=== PATIENT | male | born 1945 | race Caucasian/White ===

== ENCOUNTER → 2022-01-21 | Outpatient (CLI) | payer MEDICARE, SELFPAY ==
[2022-01-21 12:15] LABS: Absolute Lymphocyte Count 1.57 X10^3/uL (0.83-4.51); Absolute Neutrophil Count 3.1 X10^3/uL (2.0-7.7); Basophil# 0.04 X10^3/uL; Basophil% 0.7 % (0-1); Eosinophil# 0.11 X10^3/uL; Eosinophils% 1.9 % (0-5); Hematocrit 42.8 % (40-54); Hemoglobin 13.5 g/dL (13.0-16.5); Lymphocyte # 1.57 X10^3/ul (0.83-4.51); Lymphocyte % 27.6 % (19-41); Mean Corp Hgb Conc 31.5 g/dL (32-36); Mean Corpuscular Hgb 28.1 pg (27.0-32.0); Mean Platelet Vol. 10.9 fl (6.2-12.0); Monocyte# 0.82 X10^3/uL; Monocyte% 14.4 % (0-10); NRBC Flagged by Analyzer 0 % (0-5); Neutrophil # 3.13 X10^3/uL (2.7-7.7); Neutrophil % 55.2 % (47-70); Platelet Count 166 K/mm3 (150-450); RBC Distribution Width CV 17.2 % (11.6-14.6); RBC Distribution Width SD 56.5 fl (35.1-43.9); Red Blood Count 4.81 M/mm3 (4.6-6.2); White Blood Count 5.7 K/mm3 (4.4-11.0)
[2022-01-21 12:53] LABS: ALB/GLOB Ratio 1.1 RATIO (0.9-2.4); AST(SGOT) 27 U/L (15-37); Alanine Aminotransfer ALT/SGPT 32 U/L (16-61); Albumin, Serum 3.7 g/dL (3.2-5.0); Alkaline Phosphatase 59 U/L (45-117); Anion Gap 4 (5-15); BUN 15 mg/dL (7-18); BUN/Creat Ratio 13.2 RATIO (10-20); Calcium,Total 8.9 mg/dL (8.5-10.1); Chloride 106 mmol/L (98-107); Cholesterol 150 mg/dL (200); Creatinine, Serum 1.14 mg/dL (0.70-1.30); EST Glomerular Filtration Rate 67 mL/min (>60); Est Glom Filt Rate - Afr Amer 81 mL/min (>60); Globulin 3.4 g/dL (2.2-4.2); Glucose 80 mg/dL (74-106); High Density Lipoprotein 84 mg/dL; PSA,Total - Annual Screen 5.01 ng/mL (0.00-4.00); Potassium 4.1 mmol/L (3.5-5.1); Protein, Total 7.1 g/dL (6.4-8.2); Sodium Level 141 mmol/L (136-145); Thyroid Stim Hormone (TSH) 2.28 uIU/mL (0.358-3.74); Triglycerides 69 mg/dL; Very Low Density Lipoprotein 14 mg/dL (5-40)
== END | disposition home or self-care (01) ==
PROVIDERS: PCP Family Medicine; Visit Provider Family Medicine
DX: E78.5 Hyperlipidemia, unspecified (principal); F41.9 Anxiety disorder, unspecified; Z12.5 Encounter for screening for malignant neoplasm of prostate
CPT/HCPCS: 36415; 80053; 80061; 84153; 84443; 85025; G0103

== ENCOUNTER 2022-03-26 06:20 | Day surgery (SDC) | payer MEDICARE, SELFPAY ==
[2022-03-26] MEDS: Lactated Ringers 1,000 ML 15 ML IV (06:45)
[2022-03-26 06:54] VITALS: BP 132/79; PULSE 71; RESP 18; TEMP 37.1; O2SAT 93; BMI 23.6
--- NOTE | 2022-03-26 06:59 | HP.PCM_ITS ---
HPI - General General Date of Service: 03/26/22 HPI Narrative TOM VILLATORO, is a 76 M who presents who presents for screening colonoscopy today. Previous examination was 2008. He presents via open access today. He enjoys good health. Has no specific complaints. No abdominal pain bright red blood blood per rectum or melena. No change in bowel habits. No history of DVT. [facility] Medical History (Updated 03/25/22 @ 10:55 by Kim Albright) Anxiety and depression Constipation Former smoker Hyperlipidemia Insomnia Wears glasses Wears hearing aid Home Medications atorvastatin 20 mg tablet 20 mg PO QHS 02/06/22 [History Last Taken Unknown] bupropion HCl 150 mg tablet,12 hr sustained-release 150 mg PO BID 02/06/22 [History Last Taken Unknown] zzdoigs-tnbwqzffh-aqfh 333 mg-133 mg-5 mg tablet 2 tab PO DAILY 02/06/22 [History Last Taken Unknown] diphenhydramine HCl 25 mg capsule (Benadryl) 25 mg PO QHS PRN allergies 02/06/22 [History Last Taken Unknown] docusate sodium 100 mg capsule 100 mg PO DAILY 02/06/22 [History Last Taken Unknown] glucosamine HCl 1,500 mg tablet 1,500 mg PO BID 02/06/22 [History Last Taken Unknown] lutein 25 mg-zeaxanthin 5 mg capsule (Ocuvite Lutein) 1 cap PO DAILY 02/06/22 [History Last Taken Unknown] melatonin 10 mg capsule 10 mg PO HS PRN Sleep 02/06/22 [History Last Taken Unknown] multivitamin 1 tab PO DAILY 02/06/22 [History Last Taken Unknown] sennosides 8.6 mg capsule (senna) 8.6 mg PO QHS PRN PRN Constipation 02/06/22 [History Last Taken Unknown] Allergy/AdvReac Type Severity Reaction Status Date / Time Tetracyclines Allergy Intermediate Swelling Verified 03/26/22 06:43 acetaminophen [From NyQuil] AdvReac Other Verified 03/26/22 06:43 dextromethorphan AdvReac Other Verified 03/26/22 06:43 [From NyQuil] doxylamine [From NyQuil] AdvReac Other Verified 03/26/22 06:43 pseudoephedrine [From NyQuil] AdvReac Other Verified 03/26/22 06:43 Family History (Updated 02/06/22 @ 11:00 by Yadira Bautista) Father Hypertension Myocardial infarction CAD (coronary artery disease) Surgical History (Updated 03/25/22 @ 10:46 by Kim Albright) History of circumcision History of colonoscopy History of surgery on right wrist History of tonsillectomy History of umbilical hernia repair Social History (Updated 02/06/22 @ 11:01 by Yadira Bautista) household members: spouse Smoking Status: Former smoker ROS Constitutional Constitutional: Reports systems reviewed and no addt'l complaints, except as documented Cardiovascular Cardiovascular: Denies chest pain Respiratory/Chest Respiratory/Chest: Denies shortness of breath at rest Gastrointestinal Gastrointestinal: Denies abdominal pain, change in bowel habits, hematochezia or melena Vital Signs Vital Signs Vital Signs: 03/26/22 06:54 03/26/22 06:54 Temperature 98.7 F Temperature Source Temporal Pulse Rate 71 Respiratory Rate 18 Respiratory Pattern Normal Blood Pressure 132/79 H Blood Pressure Mean 96 Blood Pressure Source Monitor Blood Pressure Position Semi-Fowlers Blood Pressure Location Right Arm Pulse Ox 93 Oxygen Delivery Method Room Air Weight Weight: 155 lb 6.814 oz Body Mass Index (BMI) 23.6 Physical Exam Const alert, oriented x3 and no apparent distress General Appearance: cooperative and comfortable Eyes General Eye: normal appearance of both eyes Neck General: normal visual inspection Chest inspection of chest normal Resp Effort and Inspection: able to speak in complete sentences and symmetric chest movement Auscultation: clear to auscultation bilaterally Cardio regular rate and regular rhythm GI soft to palpation, non-tender and non-distended Extremity no calf tenderness Neuro oriented x3 Psych thought process normal Assessment & Plan Assessment/Plan (1) Encounter for screening for malignant neoplasm of colon: PLAN: 76-year-old gentleman who presents via open access today for screening colonoscopy with possible biopsy or polypectomy as indicated. He is aware of the technique, benefit, risk, alternatives. We will proceed as noted. Ravi Humphreys M.D., F.A.C.S.
[2022-03-26 08:15] VITALS: BP 103/52; BP 132/79; PULSE 66; RESP 18; TEMP 36.7; O2SAT 97
--- NOTE | 2022-03-26 08:18 | OP.COLON_ITS ---
Patient Name: Dc Guzman Procedure Date: 03/26/2022 7:41 AM Date of : 1945 Age: 76 Procedure: Colonoscopy Indications: Screening for colorectal malignant neoplasm Providers: Ravi Humphreys MD Medicines: See the Anesthesia note for documentation of the administered medications Patient Profile: Last Colonoscopy: 2008. Complications: No immediate complications. Procedure: Pre-Anesthesia Assessment: - Prior to the procedure, a History and Physical was performed, and patient medications and allergies were reviewed. The patient's tolerance of previous anesthesia was also reviewed. The risks and benefits of the procedure and the sedation options and risks were discussed with the patient. All questions were answered, and informed consent was obtained. Prior Anticoagulants: The patient has taken no previous anticoagulant or antiplatelet agents. ASA Grade Assessment: II - A patient with mild systemic disease. After reviewing the risks and benefits, the patient was deemed in satisfactory condition to undergo the procedure. After I obtained informed consent, the scope was passed under direct vision. Throughout the procedure, the patient's blood pressure, pulse, and oxygen saturations were monitored continuously. The was introduced through the anus and advanced to the cecum, identified by appendiceal orifice and ileocecal valve. The colonoscopy was somewhat difficult due to a redundant colon. The patient tolerated the procedure well. The quality of the bowel preparation was fair. The ileocecal valve and the appendiceal orifice were photographed. Scope In: 7:51:42 AM Scope Withdrawal Time 0 hours 14 minutes 7 seconds Scope Out: 8:13:22 AM Total Procedure Duration Time 0 hours 21 minutes 40 seconds Findings: The digital rectal exam findings include non-thrombosed external hemorrhoids, non-thrombosed internal hemorrhoids and internal hemorrhoids that prolapse with straining, but spontaneously regress to the resting position (Grade II). Pertinent negatives include normal prostate (size, shape, and consistency). The colon (entire examined portion) was moderately redundant. There was moderate spasm in the entire colon. Pt was given glucagon to help with visualization The exam was otherwise without abnormality. Impression: - Preparation of the colon was fair. - Non-thrombosed external hemorrhoids, non-thrombosed internal hemorrhoids and internal hemorrhoids that prolapse with straining, but spontaneously regress to the resting position (Grade II) found on digital rectal exam. - Redundant colon. - Moderate colonic spasm. - The examination was otherwise normal. - No specimens collected. Recommendation: - Discharge patient to home. - Resume previous diet. - Continue present medications. - Repeat colonoscopy in 10 years for screening purposes. Procedure Code(s): --- Professional --- 03721, Colonoscopy, flexible; diagnostic, including collection of specimen(s) by brushing or washing, when performed (separate procedure) Diagnosis Code(s): --- Professional --- Z12.11, Encounter for screening for malignant neoplasm of colon K64.1, Second degree hemorrhoids K64.4, Residual hemorrhoidal skin tags K58.9, Irritable bowel syndrome without diarrhea Q43.8, Other specified congenital malformations of intestine CPT copyright 2017 [employer]. All rights reserved. The codes documented in this report are preliminary and upon medical biller coder review may be revised to meet current compliance requirements. Ravi Humphreys MD 03/26/2022 8:18:23 AM This report has been signed electronically. Number of Addenda: 0 Note Initiated On: 03/26/2022 7:41 AM
--- NOTE | 2022-03-26 08:19 | OP.CCLET_ITS ---
03/26/2022 Saad Kelley [address] [place] [address] Re : Colonoscopy procedure for Dc Guzman Dear Dr. Kelley This procedure was performed on Saturday, March 26, 2022. My impressions and recommendations are as follows: Impressions : - Preparation of the colon was fair. - Non-thrombosed external hemorrhoids, non-thrombosed internal hemorrhoids and internal hemorrhoids that prolapse with straining, but spontaneously regress to the resting position (Grade II) found on digital rectal exam. - Redundant colon. - Moderate colonic spasm. - The examination was otherwise normal. - No specimens collected. Recommendations : - Discharge patient to home. - Resume previous diet. - Continue present medications. - Repeat colonoscopy in 10 years for screening purposes. My findings are described in the full procedure note, which is enclosed. If I can be of further assistance, please feel free to contact me at Doctor phone number(s): Work: . Sincerely, Ravi Humphreys MD 03/26/2022 8:18:23 AM This report has been signed electronically.
[2022-03-26 08:20] VITALS: BP 103/58; BP 132/79; PULSE 63; RESP 18; O2SAT 97
[2022-03-26 08:25] VITALS: BP 102/53; BP 132/79; PULSE 67; RESP 16; O2SAT 100
[2022-03-26 08:30] VITALS: BP 100/54; BP 132/79; PULSE 64; RESP 16; TEMP 37; O2SAT 98
[2022-03-26 08:41] VITALS: BP 132/79
== END 2022-03-26 08:50 | disposition home or self-care (01) ==
LOC: EN 06:23 → AC 06:24
PROVIDERS: PCP Family Medicine; Referring Provider Family Medicine; Visit Provider Surgery
PROC: 0DJD8ZZ Inspection of Lower Intestinal Tract, Via Natural or Artificial Opening Endoscopic (ICD-10-PCS; CPT 45378; principal; 2022-03-26 07:25)
DX: Z12.11 Encounter for screening for malignant neoplasm of colon (principal); K64.1 Second degree hemorrhoids; K64.4 Residual hemorrhoidal skin tags; K58.9 Irritable bowel syndrome, unspecified; Q43.8 Other specified congenital malformations of intestine; E78.5 Hyperlipidemia, unspecified; F32.A Depression, unspecified; F41.9 Anxiety disorder, unspecified; Z87.891 Personal history of nicotine dependence; Z79.899 Other long term (current) drug therapy
CPT/HCPCS: 45378; J7120; J1610; J2405

== ENCOUNTER → 2022-08-02 | Outpatient (CLI) | payer MEDICARE, SELFPAY ==
[2022-08-02 17:34] LABS: Absolute Lymphocyte Count 1.45 X10^3/uL (0.83-4.51); Absolute Neutrophil Count 5.9 X10^3/uL (2.0-7.7); Basophil# 0.07 X10^3/uL; Basophil% 0.8 % (0-1); Eosinophil# 0.16 X10^3/uL; Eosinophils% 1.8 % (0-5); Hematocrit 38.1 % (40-54); Hemoglobin 11.3 g/dL (13.0-16.5); Lymphocyte # 1.45 X10^3/ul (0.83-4.51); Lymphocyte % 16.8 % (19-41); Mean Corp Hgb Conc 29.7 g/dL (32-36); Mean Corpuscular Hgb 25.6 pg (27.0-32.0); Mean Corpuscular Volume 86.2 fL (80-94); Mean Platelet Vol. 10.7 fl (6.2-12.0); Monocyte# 1.05 X10^3/uL; Monocyte% 12.1 % (0-10); NRBC Flagged by Analyzer 0 % (0-5); Neutrophil # 5.89 X10^3/uL (2.7-7.7); Neutrophil % 68.2 % (47-70); Platelet Count 251 K/mm3 (150-450); RBC Distribution Width CV 15.8 % (11.6-14.6); RBC Distribution Width SD 49.7 fl (35.1-43.9); Red Blood Count 4.42 M/mm3 (4.6-6.2); White Blood Count 8.7 K/mm3 (4.4-11.0)
[2022-08-02 17:58] LABS: ALB/GLOB Ratio 1.3 RATIO (0.9-2.4); AST(SGOT) 23 U/L (15-37); Alanine Aminotransfer ALT/SGPT 25 U/L (16-61); Albumin, Serum 3.8 g/dL (3.2-5.0); Alkaline Phosphatase 72 U/L (45-117); Anion Gap 5 (5-15); BUN 18 mg/dL (7-18); BUN/Creat Ratio 15.9 RATIO (10-20); Calcium,Total 8.7 mg/dL (8.5-10.1); Chloride 106 mmol/L (98-107); Cholesterol 145 mg/dL (200); Creatinine, Serum 1.13 mg/dL (0.70-1.30); EST Glomerular Filtration Rate 67 mL/min (>60); Est Glom Filt Rate - Afr Amer 81 mL/min (>60); Glucose 103 mg/dL (74-106); High Density Lipoprotein 80 mg/dL; Potassium 4.3 mmol/L (3.5-5.1); Protein, Total 6.8 g/dL (6.4-8.2); Sodium Level 141 mmol/L (136-145); Triglycerides 102 mg/dL; Very Low Density Lipoprotein 20 mg/dL (5-40)
[2022-08-09 21:25] LABS: PSA, Free 0.45 ng/mL; PSA, Free % 8.9 % (.)
== END | disposition home or self-care (01) ==
LOC: MFPLAB 14:47
PROVIDERS: PCP Family Medicine; Referring Provider Family Medicine; Visit Provider Family Medicine
DX: E78.5 Hyperlipidemia, unspecified (principal); R97.20 Elevated prostate specific antigen [PSA]
CPT/HCPCS: 36415; 80053; 80061; 84153; 84154; 85025

== ENCOUNTER → 2022-08-15 | Outpatient (CLI) | payer MEDICARE, SELFPAY ==
[2022-08-15 10:30] LABS: Absolute Lymphocyte Count 1.74 X10^3/uL (0.83-4.51); Absolute Neutrophil Count 3.3 X10^3/uL (2.0-7.7); Basophil# 0.05 X10^3/uL; Basophil% 0.8 % (0-1); Eosinophils% 3.3 % (0-5); Hematocrit 37.2 % (40-54); Hemoglobin 11.2 g/dL (13.0-16.5); Lymphocyte # 1.74 X10^3/ul (0.83-4.51); Mean Corp Hgb Conc 30.1 g/dL (32-36); Mean Corpuscular Hgb 24.9 pg (27.0-32.0); Mean Corpuscular Volume 82.9 fL (80-94); Mean Platelet Vol. 9.9 fl (6.2-12.0); Monocyte# 0.73 X10^3/uL; Monocyte% 12.2 % (0-10); NRBC Flagged by Analyzer 0 % (0-5); Neutrophil # 3.25 X10^3/uL (2.7-7.7); Neutrophil % 54.4 % (47-70); Platelet Count 211 K/mm3 (150-450); RBC Distribution Width CV 15.9 % (11.6-14.6); RBC Distribution Width SD 47.8 fl (35.1-43.9); Red Blood Count 4.49 M/mm3 (4.6-6.2)
[2022-08-15 11:10] LABS: Vitamin B12 636 pg/mL (211-911)
[2022-08-15 11:28] LABS: AST(SGOT) 23 U/L (15-37); Alanine Aminotransfer ALT/SGPT 27 U/L (16-61); Albumin, Serum 3.4 g/dL (3.2-5.0); Alkaline Phosphatase 64 U/L (45-117); Anion Gap 6 (5-15); BUN 17 mg/dL (7-18); BUN/Creat Ratio 16.5 RATIO (10-20); Calcium,Total 8.7 mg/dL (8.5-10.1); Chloride 106 mmol/L (98-107); Cholesterol 129 mg/dL (200); Creatinine, Serum 1.03 mg/dL (0.70-1.30); EST Glomerular Filtration Rate 75 mL/min (>60); Est Glom Filt Rate - Afr Amer 90 mL/min (>60); Ferritin 9 ng/mL (26-388); Globulin 3.5 g/dL (2.2-4.2); Glucose 88 mg/dL (74-106); High Density Lipoprotein 65 mg/dL; Iron 44 ug/dL (65-175); Iron Binding Capacity,Total 358 ug/dL (250-450); Protein, Total 6.9 g/dL (6.4-8.2); Sodium Level 139 mmol/L (136-145); Triglycerides 53 mg/dL; Very Low Density Lipoprotein 11 mg/dL (5-40)
[2022-08-16 18:44] LABS: PSA, Free % 8.2 % (.)
== END | disposition home or self-care (01) ==
LOC: MTLAB 08:36
PROVIDERS: PCP Family Medicine; Referring Provider Family Medicine; Visit Provider Family Medicine
DX: E78.5 Hyperlipidemia, unspecified (principal); R97.20 Elevated prostate specific antigen [PSA]; R73.09 Other abnormal glucose
CPT/HCPCS: 80053; 80061; 82607; 82728; 82746; 83036; 83540; 83550; 84153; 84154; 85025

== ENCOUNTER → 2022-09-12 | Outpatient (CLI) | payer MEDICARE, SELFPAY ==
[2022-09-12 09:56] LABS: Absolute Lymphocyte Count 1.69 X10^3/uL (0.83-4.51); Absolute Neutrophil Count 4.3 X10^3/uL (2.0-7.7); Basophil# 0.05 X10^3/uL; Basophil% 0.7 % (0-1); Eosinophil# 0.17 X10^3/uL; Eosinophils% 2.4 % (0-5); Hematocrit 41.1 % (40-54); Hemoglobin 12.4 g/dL (13.0-16.5); Lymphocyte # 1.69 X10^3/ul (0.83-4.51); Lymphocyte % 23.7 % (19-41); Mean Corp Hgb Conc 30.2 g/dL (32-36); Mean Corpuscular Hgb 27.2 pg (27.0-32.0); Mean Corpuscular Volume 90.1 fL (80-94); Mean Platelet Vol. 10.6 fl (6.2-12.0); Monocyte# 0.86 X10^3/uL; Monocyte% 12.1 % (0-10); NRBC Flagged by Analyzer 0 % (0-5); Neutrophil # 4.34 X10^3/uL (2.7-7.7); POSITIVE MORPHOLOGY YES; Platelet Count 189 K/mm3 (150-450); RBC Distribution Width SD 70.4 fl (35.1-43.9); Red Blood Count 4.56 M/mm3 (4.6-6.2); White Blood Count 7.1 K/mm3 (4.4-11.0)
[2022-09-12 11:12] LABS: Differential Indicated SCAN CRITERIA MET
== END | disposition home or self-care (01) ==
LOC: MFPLAB 08:11
PROVIDERS: PCP Family Medicine; Referring Provider Family Medicine; Visit Provider Family Medicine
DX: D50.9 Iron deficiency anemia, unspecified (principal)
CPT/HCPCS: 36415; 85025

== ENCOUNTER → 2022-10-03 | Outpatient (CLI) | payer MEDICARE, SELFPAY ==
--- NOTE | 2022-10-03 17:48 | MRI_ITS ---
MR PELVIS WITH AND WITHOUT CONTRAST (PROSTATE) REASON FOR EXAM: Male, 76 years old. Elevated PSA TECHNIQUE: Standardized multiparametric prostate MRI with T1, T2, DWI/ADC sequences were obtained in 3 orthogonal planes, and dynamic contrast enhancement sequences. 15 ml of clariscan contrast material was administered intravenously for the contrast portion of the examination. COMPARISON: None. FINDINGS: The prostate volume measures 47.4 mm3. The contours of the prostate gland are smooth. There is not mass effect on the bladder base. The transition zone is homogenous. PI-RADS DWI score 1 - No abnormality (normal) on ADC or high b-value DWI. PI-RADS T2W score 1 - Normal appearing TZ or a round, completely encapsulated nodule (typical nodule).. Contrast enhancement no early or contemporaneous enhancement; or diffuse multifocal enhancement NOT corresponding to a focal finding on T2W and/or DWI or focal ehancement responding to a lesion demonstrating features of BPH onT2WI (including features of extruded BPH in the PZ). The peripheral zone is homogenous. PI-RADS DWI score 1 - No abnormality (normal) on ADC or high b-value DWI. PI-RADS T2W score 1 - Uniformaly hyperintense (normal). Contrast enhancement no early or contemporaneous enhancement; or diffuse multifocal enhancement NOT corresponding to a focal finding on T2W and/or DWI or focal enhancement responding to a lesion demonstrating features of BPH onT2WI (including features of extruded BPH in the PZ). The seminal vesicles demonstrate normal margins and T2 signal pattern. No mass lesion or invasion depicted. The rectoprostatic angles are normal. Urinary bladder is normal without wall thickening. The vascular structures of the are normal. The visualized hollow viscus structures are normal. Small fat-containing right inguinal hernia. No bone marrow edema or mass lesion depicted. MRI/Pelvis W/WO Contrast IMPRESSION: 1. PIRADS v2.1 2019 -- 1 - Very low (clinically significant cancer is high unlikely). Electronically Signed: eJsse Amezquita (Brooks), at 8:03 EDT ,
[2022-10-03 19:05] LABS: CREATININE FINGERSTICK 1.1 mg/dL (0.70-1.30); EGFR FINGERSTICK > 60.0000 mL/min (>60)
== END | disposition home or self-care (01) ==
LOC: MRI 16:57
PROVIDERS: PCP Family Medicine; Referring Provider Urology; Visit Provider Urology
DX: R97.20 Elevated prostate specific antigen [PSA] (principal); N40.1 Benign prostatic hyperplasia with lower urinary tract symptoms
CPT/HCPCS: 72197; A9575

== ENCOUNTER → 2022-12-12 | Outpatient (CLI) | payer MEDICARE, SELFPAY ==
--- NOTE | 2022-12-12 16:38 | RAD_ITS ---
STUDY: X-RAY - LUMBAR SPINE REASON FOR EXAM: Male, 77 years old. LUMBAR RADICULOPATHY TECHNIQUE: 2 view(s) of the lumbar spine were obtained. COMPARISON: None FINDINGS: Normal lumbar lordosis. There is no substantial scoliosis. There is a normal alignment of the vertebrae. Severe demineralization. Moderate to severe compression fracture of L1 of indeterminate age. Otherwise normal vertebral bodies and endplates. Grossly normal disc space heights. There is atherosclerotic calcification of the abdominal aorta without a demonstrated aneurysm. RAD/Lumbar Spine 2 or 3 Views IMPRESSION: Compression fracture of L1 of indeterminate age. No other definite acute or significant abnormality seen. Electronically Signed: Guillermo Cox MD at 19:36 EDT ,
--- NOTE | 2022-12-12 16:39 | RAD_ITS ---
STUDY: X-RAY EXAMINATION: SCOLIOSIS SERIES REASON FOR EXAM: Male, 77 years old. SCOLIOSIS TECHNIQUE: 1 view(s) of the thoracolumbar spine were obtained in the upright standing position. COMPARISON: 12/12/2022 FINDINGS: There is a 13 degree dextroscoliosis scoliosis of the lumbar spine with the apex of the convexity at the L3 level. Normal kyphosis of the thoracic spine. Normal thoracic vertebrae and endplates. Normal disc space heights of the thoracic spine. Normal lordosis of the lumbar spine. Chronic moderate wedge compression fracture of L1 which is unchanged. There is multilevel disc space narrowing of the lumbar spine. The soft tissue structures are unremarkable. RAD/Scoliosis 1 view IMPRESSION: 1. Chronic moderate wedge compression fracture of L1. 2. Mild dextroscoliosis of the lumbar spine with degenerative disc disease. Electronically Signed: Berto Mora MD at 9:40 EDT ,
== END | disposition home or self-care (01) ==
PROVIDERS: PCP Family Medicine; Referring Provider Family Medicine; Visit Provider Family Medicine
DX: M54.16 Radiculopathy, lumbar region (principal); M41.9 Scoliosis, unspecified
CPT/HCPCS: 72081; 72100

== ENCOUNTER → 2022-12-21 | Outpatient (CLI) | payer MEDICARE, SELFPAY ==
--- NOTE | 2022-12-21 08:31 | MRI_ITS ---
EXAM: MR LUMBAR SPINE WITHOUT INTRAVENOUS CONTRAST CLINICAL INDICATION: lumbar rad TECHNIQUE: Multiplanar and multisequence MR images of the lumbar spine without intravenous contrast. COMPARISON: X-ray 12/12/2022. FINDINGS: Transitional lumbosacral vertebral body is termed S1 in accordance with prior radiographs. VERTEBRAE: Normal alignment. No spondylolisthesis. There is preservation of the normal lumbar lordosis. Chronic L1 compression fracture. Marrow signal is normal with no acute fracture. SPINAL CORD: Unremarkable. Normal position and signal intensity of the conus medullaris. SOFT TISSUES: Unremarkable. DISCS/SPINAL CANAL/NEURAL FORAMINA: No demonstrated fracture. Vertebral bodies are normal in height. T12-L1: Disc dehydration. Mild spondylotic bar due to L1 compression. No canal stenosis. Mild foraminal encroachment on the right due to spurring. L1-2: Disc dehydration. Normal bilateral facet joints. Normal central canal. Normal bilateral lateral recesses. Foraminal stenosis due to spurring. L2-3: Disc dehydration. Normal bilateral facet joints. Normal central canal. Normal bilateral lateral recesses. Normal intervertebral neural foramina. L3-4: Disc dehydration. Normal bilateral facet joints. Normal central canal. Normal bilateral lateral recesses. Normal intervertebral neural foramina. L4-5: Disc dehydration. Mild facet hypertrophy. Normal central canal. Normal bilateral lateral recesses. Mild foraminal encroachment due to spurring. L5-S1: Normal disc height and morphology. Mild facet hypertrophy. Normal central canal. Normal bilateral lateral recesses. Normal intervertebral neural foramina. S1-2: Hypoplastic disc space. No disc protrusion, canal or foraminal stenosis. MRI/Spine Lumbar (Routine) IMPRESSION: Transitional lumbosacral vertebral body termed S1. Chronic L1 compression fracture. No acute findings. Electronically Signed: Cathleen Claire MD at 20:22 EDT Reading Location ID and State: [id number] / Tel , Service support ,
== END | disposition home or self-care (01) ==
LOC: MRI 08:30
PROVIDERS: PCP Family Medicine; Visit Provider Family Medicine
DX: M54.16 Radiculopathy, lumbar region (principal)
CPT/HCPCS: 72148

== ENCOUNTER → 2022-12-25 | Outpatient (CLI) | payer MEDICARE, SELFPAY ==
--- NOTE | 2022-12-25 11:25 | RAD_ITS ---
EXAM: XR RIGHT HIP WITH PELVIS WHEN PERFORMED, 2 OR 3 VIEWS CLINICAL INDICATION: R HIP PAIN TECHNIQUE: Two or three views of the right hip with pelvis when performed. COMPARISON: No relevant prior studies available. FINDINGS: BONES/JOINTS: Unremarkable. No displaced fracture. No destructive or sclerotic lesions. Note that overlapping bowel shadows may however obscure fine detail. Sacroiliac joint is unremarkable. No widening of the pubic symphysis. The articular structures are unremarkable. SOFT TISSUES: Unremarkable. No soft tissue swelling or gas. RAD/HIP, UNI W/ Pelvis 2-3 Views IMPRESSION: No evidence of displaced pelvic or hip fracture. Electronically Signed: Steve Kennedy MD at 23:21 EDT ,
== END | disposition home or self-care (01) ==
LOC: RAD 11:23
PROVIDERS: PCP Family Medicine; Referring Provider Anesthesiology Pain Medicine; Visit Provider Anesthesiology Pain Medicine
DX: M25.551 Pain in right hip (principal)
CPT/HCPCS: 73502

== ENCOUNTER → 2023-01-02 | Outpatient (CLI) | payer MEDICARE, SELFPAY ==
--- NOTE | 2023-01-02 10:44 | BD_ITS ---
STUDY: DUAL ENERGY X-RAY ABSORPTIOMETRY / DXA REASON FOR EXAM: Male, 77 years old. M81.0 TECHNIQUE: Bone Mineral Density (BMD) measurements of lumbar spine and bilateral hips were obtained. COMPARISON: None. FINDINGS: Lumbar Spine (L1-L4): g/cm2 (0.905) / T-score (-1.7) / Z-score (-0.6) Findings are suggestive of osteopenia with a moderate fracture risk. Left Femur Total: g/cm2 (0.710) / T-score (-2.1) / Z-score (-1.3) Left Femoral Neck: g/cm2 (0.545) / T-score (-2.8) / Z-score (-1.5) Right Femur Total: g/cm2 (0.688) / T-score (-2.3) / Z-score (-1.4) Right Femoral Neck: g/cm2 (0.603) / T-score (-2.4) / Z-score (-1.0) BD/Dexa Bone Density Study IMPRESSION: The patient is considered osteoporotic as outlined below according to World Tong Organization (WHO) criteria with a high fracture risk. Reference Information: The T-score is the number of standard deviations above or below the standard which is normal for young adults at their peak bone mineral density. The World Health Organization (WHO) interprets the T-scores as follows: Above -1 Normal bone density Between -1 and -2.5 Osteopenia Equal to / or below -2.5 Osteoporosis As a practical clinical guideline, osteopenia may be graded as follows: Mild -1 through -1.5 Moderate -1.6 through -2.0 Severe -2.1 through -2.4 The Z-score is the number of standard deviations above or below age-matched controls. A Z-score of less than -1.5 would be considered abnormal. References: 1. NIH Osteoporosis and Related Bone Diseases www osteo.org 2. International Society for Clinical Densitometry www iscd.org 3. National Osteoporosis Foundation www nof.org Electronically Signed: Doe Diaz MD at 10:28 EDT ,
== END | disposition home or self-care (01) ==
LOC: OPBD 10:11
PROVIDERS: PCP Family Medicine; Referring Provider Family Medicine; Visit Provider Family Medicine
DX: M81.0 Age-related osteoporosis without current pathological fracture (principal)
CPT/HCPCS: 77080

== ENCOUNTER → 2023-01-28 | Outpatient (CLI) | payer MEDICARE, SELFPAY ==
[2023-01-28 12:32] LABS: Absolute Lymphocyte Count 1.58 X10^3/uL (0.83-4.51); Basophil# 0.05 X10^3/uL; Basophil% 0.7 % (0-1); Eosinophil# 0.09 X10^3/uL; Eosinophils% 1.3 % (0-5); Hemoglobin 15.4 g/dL (13.0-16.5); Lymphocyte # 1.58 X10^3/ul (0.83-4.51); Lymphocyte % 23.7 % (19-41); Mean Corp Hgb Conc 32.1 g/dL (32-36); Mean Corpuscular Hgb 32.5 pg (27.0-32.0); Mean Corpuscular Volume 101.3 fL (80-94); Mean Platelet Vol. 10.5 fl (6.2-12.0); Monocyte# 0.89 X10^3/uL; Monocyte% 13.3 % (0-10); NRBC Flagged by Analyzer 0 % (0-5); Neutrophil # 4.04 X10^3/uL (2.7-7.7); Neutrophil % 60.7 % (47-70); Platelet Count 151 K/mm3 (150-450); RBC Distribution Width CV 13.8 % (11.6-14.6); RBC Distribution Width SD 51.7 fl (35.1-43.9); Red Blood Count 4.74 M/mm3 (4.6-6.2); White Blood Count 6.7 K/mm3 (4.4-11.0)
[2023-01-28 12:57] LABS: ALB/GLOB Ratio 1.2 RATIO (0.9-2.4); AST(SGOT) 32 U/L (15-37); Alanine Aminotransfer ALT/SGPT 37 U/L (16-61); Albumin, Serum 3.6 g/dL (3.2-5.0); Alkaline Phosphatase 68 U/L (45-117); Anion Gap 5 (5-15); BUN 20 mg/dL (7-18); BUN/Creat Ratio 17.7 RATIO (10-20); Calcium,Total 8.6 mg/dL (8.5-10.1); Chloride 110 mmol/L (98-107); Cholesterol 140 mg/dL (200); Creatinine, Serum 1.13 mg/dL (0.70-1.30); EST Glomerular Filtration Rate 67 mL/min (>60); Est Glom Filt Rate - Afr Amer 81 mL/min (>60); Ferritin 46 ng/mL (26-388); Glucose 134 mg/dL (74-106); High Density Lipoprotein 81 mg/dL; Iron 117 ug/dL (65-175); Iron Binding Capacity,Total 349 ug/dL (250-450); Potassium 3.9 mmol/L (3.5-5.1); Protein, Total 6.6 g/dL (6.4-8.2); Sodium Level 142 mmol/L (136-145); Triglycerides 51 mg/dL; Very Low Density Lipoprotein 10 mg/dL (5-40)
[2023-01-28 12:59] LABS: Hemoglobin A1c 5.9 % (3.8-5.6); Vitamin D,25 Hydroxy 38.3 ng/mL
== END | disposition home or self-care (01) ==
LOC: MFPLAB 10:53
PROVIDERS: PCP Family Medicine; Visit Provider Family Medicine
DX: E78.5 Hyperlipidemia, unspecified (principal); D50.9 Iron deficiency anemia, unspecified; R73.02 Impaired glucose tolerance (oral); M81.0 Age-related osteoporosis without current pathological fracture
CPT/HCPCS: 36415; 80053; 80061; 82306; 82728; 83036; 83540; 83550; 85025

== ENCOUNTER 2023-02-25 10:00 | Outpatient (RCR) | payer MEDICARE, SELFPAY ==
--- NOTE | 2023-01-06 09:15 | HP.PTEVAL_ITS ---
Patient's Visit Information Visit Information Visit Information: TOM VILLATORO is a 77 year old M referred to Physical Therapy by Dr. Robel Car MD with a diagnosis of R foot drop , back pain. Date of Evaluation: 01/06/23 Physical Therapist: Amilcar Kang, DPT, OCS, CSCS Visit Plan Frequency: 1x/Week Duration: 4-6 Weeks Plan: weekly for EG to progress ex via HEP...given ankle DF toe raises seated adn SLS R today. Next session please give quad and HS stretches and progress proprioceptive adn ankle DF strength as needed. then LB ROM and core strength as needed. Pt has foot drop slightly and diminished proprioception R and tightness in hip and LB prognosis is questionable depending on integrity of nerve damaging structure. Subjective Subjective: Started with hip pain for no reason and sciatica down R leg, got epidural which fixed it the next day. Has had this in the past years ago after a fall. This time it just started out of nowhere. Pain is now gone. May get hip injection in a couple weeks by dr. Car. All he has left now is rotation of R LE hip hurts to cross legs. No numbness in foot but cannot put foot down properly. R leg is slowing him down. Fell on wet floor this friday slipping but did not get hurt. Main complaint is slow walking due to foot. Sitting still alot. Has cut grass but it made foot worse. Feels like it he is off balalnce and it goes away at times and gets worse with fatigue. 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 Pain R groin: Pain Intensity (Out of 10): 0 Pain Intensity Range: 0 and 5 Comment: with crossing leg Objective Objective: Walks with some R antalgia and foot slap on floor but I. SLS R 2 sec onds adn L 10. Balance is good but seems hesitant on R LE. LB AROM ext max limited, flexion min limited, SB min limited B and only stretching contralaterally, no back pain. Flexibility in quads and HS max limited B, priformis min limited B., gastroc mod tightness B to 0 DF B. Hip aROM WFL but painful to rotate R internal and external at end range in groin. r 5 in and 45 out with pain, L 50 er to 10 IR. flexion is 110 B. extension is 4 B. knee AROM WFL. ankle aROM WFL, harder to lift R DF and weak at 3 on r and 4 on L, inversion 3 R and 4 L, eversion 3+ R and 4 L , PF 4- B. knee strength 4 B. Hip strength abd and ext 3, flexion 4-B + slight HEENA and FADDIR R, - hip scour. - slump, - SLR Sensation WNL to gross light touch LE reflexes 2/3 patella and achilles Balance/Special Test Scores Oswestry Low Back Score: 7 Goals Goal 1:: I appropriate ex to manage condition(ankle prop and strength, hip stretches, LB ROM Goal Time Frame: 4-6 Weeks Goal 2:: Walk without foot drop R and feel 75% better in overall gait Goal Time Frame: 4-6 Weeks Goal 3:: Hip pain R gone with crossing legs Goal Time Frame: 4-6 Weeks Rehabilitation Potential Physical Therapy Diagnosis: R ankle weak and proprioceptive deficits, hip stiffness and pain Rehabilitation Potential: Questionable Anticipated Interventions Patient/Client Instruction: Educate patient on: Condition and Plan of Care For the Purpose of:: To decrease pain, To increase ROM, To improve nutrient delivery to tissue, To improve muscle performance and motor function, To improve ability of physical actions for home/community/work/leisure and To improve gait and locomotor functions Therapeutic Exercise to Include: Strength training, Postural training, Flexibilty training, Gait and locomotor training, Passive ROM and Active ROM For the Purpose of:: To decrease pain, To increase ROM, To improve nutrient delivery to tissue, To improve muscle performance and motor function, To increase tolerance to activity/condition/position, To improve ability of physical actions for home/community/work/leisure and To improve gait and locomotor functions Text: Thank you for the opportunity to evaluate your patient. For Medicare and Medicare HMO plans, please review the plan of care and approve it. It will need to be FAXED BACK to us at [phone] for Medicare purposes. For Medicare only, by signing this I certify the plan of care. Please let me know if there are questions or concerns regarding this plan of care. Physician Signature: Date:
--- NOTE | 2023-02-25 10:29 | HP.PTREVAL ---
Re-Evaluation Intro: Dr. Robel Car MD, It has been my pleasure to treat TOM VILLATORO over the last 5 visits for R foot drop , back pain. Please see the progress note below for an update on the physical therapy plan of care! Subjective Subjective: Saw dr. Car again for f/u. Injection is still working and put on meloxicam which has helped. Foot drop is still apparent adn not improving. He has referred to surgeon for consult. Overall better than a month ago, walking a llittle better. Still can't run a race. Activities that he is avoiding are nil, life is normal but foot feels weird and weak when walking. He sais S1 problem which he wants to be worked on in therapy. HEP going well ...ROM and stretching 2x/week, strength 2x/week, strengthening 3x at [place]. Objective Objective/Function: 28# and 4- strength R DF vs 60 and 4+ in L DF but much better than day one. Walking well without danger and just some [id number] noticeable foot slap. LB AROM ext mod deficits, others WFL and no pain. Plan Plan Plan: Doing very well . Encouraged to continue stretch adn ROM and anklle strength 3-4x/wek and home strength 2x/weeka dn gym strength 2x/weeek. To consult surgeon Re Options and call after that for f/u as needed to progress ex or d/c Balance/Gait/Functional tests Balance/Special Test Scores Oswestry Low Back Score: 7 Lower Extremity Functional Score: 62 Goals Goals Goal 1:: I appropriate ex to manage condition(ankle prop and strength, hip stretches, LB ROM Goal Time Frame: 4-6 Weeks Goal Progress: Goal Met Goal 2:: Walk without foot drop R and feel 75% better in overall gait Goal Time Frame: 4-6 Weeks Goal Progress: 50%, still some slap. Goal 3:: Hip pain R gone with crossing legs Goal Time Frame: 4-6 Weeks Goal Progress: much better Goal 4:: maintain 95% improvement for one month. Goal Time Frame: 2-4 Weeks Goal Progress: NEW GOAL Anticipated Interventions Anticipated Interventions Patient/Client Instruction: Educate patient on: Condition and Plan of Care For the Purpose of:: To decrease pain, To increase ROM, To improve nutrient delivery to tissue, To improve muscle performance and motor function, To improve ability of physical actions for home/community/work/leisure and To improve gait and locomotor functions Therapeutic Exercise to Include: Strength training, Postural training, Flexibilty training, Gait and locomotor training, Passive ROM and Active ROM For the Purpose of:: To decrease pain, To increase ROM, To improve nutrient delivery to tissue, To improve muscle performance and motor function, To increase tolerance to activity/condition/position, To improve ability of physical actions for home/community/work/leisure and To improve gait and locomotor functions Re-Evaluation Ending Re-evaluation ending: Please do not hesitate to contact me at [phone] by phone or if you have questions or concerns regarding this new plan of care! Sincerely, Amilcar Kang, DPT, OCS, CSCS
--- NOTE | 2023-04-10 15:29 | HP.PT.NRP ---
Patient Information Patient Information: TOM VILLATORO was seen in my office for initial evaluation on 01/06/23. The following Plan of Care was established for this patient: POC Established Initial Frequency: 1x/Week Initial Duration: 4-6 Weeks Anticipated Interventions Patient/Client Instruction: Educate patient on: Condition and Plan of Care For the Purpose of:: To decrease pain, To increase ROM, To improve nutrient delivery to tissue, To improve muscle performance and motor function, To improve ability of physical actions for home/community/work/leisure and To improve gait and locomotor functions Therapeutic Exercise to Include: Strength training, Postural training, Flexibilty training, Gait and locomotor training, Passive ROM and Active ROM For the Purpose of:: To decrease pain, To increase ROM, To improve nutrient delivery to tissue, To improve muscle performance and motor function, To increase tolerance to activity/condition/position, To improve ability of physical actions for home/community/work/leisure and To improve gait and locomotor functions Last Seen Last Seen: This patient was last seen in our office 02/25/23. Pertinent comments regarding their Physical therapy will appear below: Pt seen 5 visits and was 95% better. He was to return to surgeon and call if he needed to return. IT has been over 6 weeks and I will discontinue due to nonattendance per POC. At this point I will be discontinuing this patient from physical therapy. I would be happy to see this patient again in the future if found appropriate by the physician. Thank you! Amilcar Kang, DPT, OCS, CSCS Balance/Gait/Functional tests Balance/Special Test Scores Oswestry Low Back Score: 7 Lower Extremity Functional Score: 62
== END 2023-02-25 19:00 | disposition home or self-care (01) ==
LOC: PT 10:00
PROVIDERS: PCP Family Medicine; Referring Provider Anesthesiology Pain Medicine; Visit Provider Anesthesiology Pain Medicine
DX: M21.371 Foot drop, right foot (principal); M54.9 Dorsalgia, unspecified
CPT/HCPCS: 97110; 97161; 97164

== ENCOUNTER → 2023-02-28 | Outpatient (CLI) | payer MEDICARE, SELFPAY ==
[2023-02-28 15:20] LABS: Absolute Lymphocyte Count 1.39 X10^3/uL (0.83-4.51); Absolute Neutrophil Count 3.5 X10^3/uL (2.0-7.7); Basophil# 0.04 X10^3/uL; Basophil% 0.7 % (0-1); Eosinophil# 0.12 X10^3/uL; Hematocrit 46.2 % (40-54); Hemoglobin 15.1 g/dL (13.0-16.5); Lymphocyte # 1.39 X10^3/ul (0.83-4.51); Lymphocyte % 23.6 % (19-41); Mean Corp Hgb Conc 32.7 g/dL (32-36); Mean Corpuscular Volume 100.9 fL (80-94); Mean Platelet Vol. 10.3 fl (6.2-12.0); Monocyte# 0.79 X10^3/uL; Monocyte% 13.4 % (0-10); NRBC Flagged by Analyzer 0 % (0-5); Neutrophil # 3.53 X10^3/uL (2.7-7.7); Neutrophil % 60.1 % (47-70); Platelet Count 164 K/mm3 (150-450); RBC Distribution Width CV 13.6 % (11.6-14.6); RBC Distribution Width SD 50.7 fl (35.1-43.9); Red Blood Count 4.58 M/mm3 (4.6-6.2); White Blood Count 5.9 K/mm3 (4.4-11.0)
[2023-02-28 15:34] LABS: Ferritin 43 ng/mL (26-388); Iron 104 ug/dL (65-175); Iron Binding Capacity,Total 359 ug/dL (250-450)
== END | disposition home or self-care (01) ==
LOC: MFPLAB 11:26
PROVIDERS: PCP Family Medicine; Visit Provider Family Medicine
DX: D50.9 Iron deficiency anemia, unspecified (principal)
CPT/HCPCS: 36415; 82728; 83540; 83550; 85025

== ENCOUNTER → 2023-04-30 | Outpatient (CLI) | payer MEDICARE, SELFPAY ==
[2023-04-30 16:44] LABS: PSA,Total- Diagnostic 5.53 ng/mL (0.0-4.0)
== END | disposition home or self-care (01) ==
LOC: LAB 15:03
PROVIDERS: PCP Family Medicine; Visit Provider Urology
DX: N40.1 Benign prostatic hyperplasia with lower urinary tract symptoms (principal); R97.20 Elevated prostate specific antigen [PSA]
CPT/HCPCS: 36415; 84153

== ENCOUNTER → 2023-06-04 | Outpatient (CLI) | payer MEDICARE, SELFPAY ==
[2023-06-04 12:36] LABS: Absolute Lymphocyte Count 1.49 X10^3/uL (0.83-4.51); Absolute Neutrophil Count 3.4 X10^3/uL (2.0-7.7); Basophil# 0.04 X10^3/uL; Basophil% 0.7 % (0-1); Eosinophil# 0.16 X10^3/uL; Eosinophils% 2.7 % (0-5); Hematocrit 44.1 % (40-54); Hemoglobin 14.3 g/dL (13.0-16.5); Lymphocyte # 1.49 X10^3/ul (0.83-4.51); Lymphocyte % 24.7 % (19-41); Mean Corp Hgb Conc 32.4 g/dL (32-36); Mean Corpuscular Hgb 31.6 pg (27.0-32.0); Mean Corpuscular Volume 97.6 fL (80-94); Mean Platelet Vol. 10.6 fl (6.2-12.0); Monocyte# 0.95 X10^3/uL; Monocyte% 15.8 % (0-10); NRBC Flagged by Analyzer 0 % (0-5); Neutrophil # 3.38 X10^3/uL (2.7-7.7); Neutrophil % 55.9 % (47-70); Platelet Count 174 K/mm3 (150-450); RBC Distribution Width CV 12.4 % (11.6-14.6); RBC Distribution Width SD 44.9 fl (35.1-43.9); Red Blood Count 4.52 M/mm3 (4.6-6.2)
[2023-06-04 13:10] LABS: Hemoglobin A1c 5.7 % (3.8-5.6)
[2023-06-04 13:15] LABS: Vitamin D,25 Hydroxy 28.4 ng/mL
[2023-06-04 13:24] LABS: ALB/GLOB Ratio 1.1 RATIO (0.9-2.4); AST(SGOT) 27 U/L (15-37); Alanine Aminotransfer ALT/SGPT 28 U/L (16-61); Albumin, Serum 3.6 g/dL (3.2-5.0); Alkaline Phosphatase 65 U/L (45-117); Anion Gap 5 (5-15); BUN 14 mg/dL (7-18); Calcium,Total 8.6 mg/dL (8.5-10.1); Chloride 107 mmol/L (98-107); Cholesterol 137 mg/dL (200); EST Glomerular Filtration Rate 77 mL/min (>60); Est Glom Filt Rate - Afr Amer 93 mL/min (>60); Globulin 3.2 g/dL (2.2-4.2); Glucose 88 mg/dL (74-106); High Density Lipoprotein 76 mg/dL; Potassium 4.3 mmol/L (3.5-5.1); Protein, Total 6.8 g/dL (6.4-8.2); Sodium Level 139 mmol/L (136-145); Triglycerides 81 mg/dL; Very Low Density Lipoprotein 16 mg/dL (5-40)
== END | disposition home or self-care (01) ==
LOC: MFPLAB 10:50
PROVIDERS: PCP Family Medicine; Visit Provider Family Medicine
DX: E78.5 Hyperlipidemia, unspecified (principal); M81.0 Age-related osteoporosis without current pathological fracture; R73.02 Impaired glucose tolerance (oral)
CPT/HCPCS: 36415; 80053; 80061; 82306; 83036; 85025

== ENCOUNTER 2023-08-29 08:04 | Emergency (ER) | payer MEDICARE, SELFPAY ==
[2023-08-29 08:05] VITALS: BP 162/68; PULSE 104; RESP 16; TEMP 35.8; O2SAT 96; BMI 25.0
--- NOTE | 2023-08-29 08:27 | CT_ITS ---
STUDY: CT ABDOMEN AND PELVIS WITH CONTRAST REASON FOR EXAM: Male, 77 years old. Freda-umbilical abd pain RADIATION DOSAGE (If Supplied By Facility): CTDIvol = ( 13.60 ) mGy, DLP = ( 534.80 ) mGycm TECHNIQUE: Transaxial images were obtained from the dome of the diaphragm to the symphysis pubis without oral contrast. IV 100mL Isovue-300 was administered. Sagittal and coronal images were reconstructed. Individualized dose optimization techniques were used for this CT. COMPARISON: None. FINDINGS: The visualized lung bases are unremarkable. The visualized portions of the heart are within normal limits. Normal liver. Normal gallbladder and extrahepatic biliary system. Normal spleen. Scattered calcifications in the tail portion of the pancreas suggestive of possible changes secondary to chronic pancreatitis. Normal bilateral adrenal glands. Normal right kidney. There is a 2.1 cm x 1.5 cm cyst in the anterior midportion of the left kidney. There is also evidence of a 1.4 cm cyst in the lateral midportion of the left kidney. Normal visualized stomach. Normal small intestine. Normal colon. The appendix is visualized and appears normal. There is atherosclerotic calcification of the abdominal aorta and its major visceral branches, without a demonstrated aneurysm. Normal inferior vena cava. Normal retroperitoneum. The distended urinary bladder. Mild degree of diffuse bladder wall thickening. Heterogeneous enlargement of the prostate with indentation of the bladder base. The prostate measures 4.9 cm x 4.5 cm. Calcifications are seen along its inferior aspect. Enlargement of the seminal vesicles bilaterally. Increased markings are seen in the surrounding fat. Inflammatory change should be ruled out. Small left inguinal hernia containing nondistended small bowel loop. 60% loss of height of the L1 vertebrae. CT/Abdomen/Pelvis W IV Cont ONLY IMPRESSION: Scattered calcifications in the tail portion of the pancreas. Left renal cysts. Heterogeneous enlargement of the prostate with indentation of the bladder base. The urinary bladder is distended. Prominence of the seminal vesicles with increased markings in the surrounding fat. Inflammatory change of the ruled out. Electronically Signed: Doe Diaz MD at 10:05 EST ,
--- NOTE | 2023-08-29 08:28 | EDS_ITS ---
HPI HPI - GI History of Present Illness Chief Complaint: Abd Pain Informant: patient Abdominal Pain/Flank Pain Onset: Days Context: Gradual Onset Timing: Continuous Quality: Aching Location: - (Periumbilical abdominal pain) Current Severity: Mild Maximum Severity: Mild Worsened by: Nothing Relieved by: Nothing Nausea/Vomiting/Emesis GI Symptom: Negative for Nausea or Vomiting Diarrhea/Melena/Hematochezia GI Symptom: Positive for - (Some constipation since .); Negative for Diarrhea, Melena or Hematochezia Associated Symptoms Associated Symptoms: Negative for Dysuria, Frequency, Hematuria or Urgency Narrative Narrative: 77-year-old male has had prior inguinal and umbilical hernia surgery. States since Friday evening he has had periumbilical abdominal discomfort. Denies any nausea, vomiting or diarrhea. He says she has not constipation no bowel movement since . Denies any dysuria or hematuria. States he is on Flomax and is urinating normally. Denies any melena. No fever. No abdominal trauma. Still has his gallbladder and his appendix. Other than his hernia surgeries no other abdominal surgery. Nothing specifically makes the pain better or worse. It has been constant since Friday. Prior similar symptoms: No Recent Illness/Hospitalization: No PFSH PFSH Medical History Anxiety and depression Constipation Former smoker Hyperlipidemia Insomnia Wears glasses Wears hearing aid Home Medications atorvastatin 20 mg tablet 20 mg PO QHS 02/06/22 [History Last Taken Unknown] bupropion HCl 150 mg tablet,12 hr sustained-release 150 mg PO BID 02/06/22 [History Last Taken Unknown] fhlxsit-lntrkqjjh-pjkh 333 mg-133 mg-5 mg tablet 2 tab PO DAILY 02/06/22 [History Last Taken Unknown] docusate sodium 100 mg capsule 100 mg PO DAILY 02/06/22 [History Last Taken Unknown] multivitamin 1 tab PO DAILY 02/06/22 [History Last Taken Unknown] sennosides 8.6 mg capsule (senna) 8.6 mg PO QHS PRN PRN Constipation 02/06/22 [History Last Taken Unknown] tamsulosin 0.4 mg capsule 0.4 mg PO Q24H 02/28/23 [History Last Taken Unknown] alendronate 70 mg tablet 70 mg PO .weekly 08/29/23 [History Last Taken Unknown] ipratropium bromide 42 mcg (0.06 %) nasal spray 2 spray intranasal BID 08/29/23 [History Last Taken Unknown] Allergy/AdvReac Type Severity Reaction Status Date / Time Tetracyclines Allergy Intermediate Swelling Verified 02/28/23 10:28 acetaminophen [From NyQuil] AdvReac Other Verified 02/28/23 10:28 dextromethorphan AdvReac Other Verified 02/28/23 10:28 [From NyQuil] doxylamine [From NyQuil] AdvReac Other Verified 02/28/23 10:28 pseudoephedrine [From NyQuil] AdvReac Other Verified 02/28/23 10:28 Family History Father Hypertension Myocardial infarction CAD (coronary artery disease) Surgical History History of circumcision History of colonoscopy History of surgery on right wrist History of tonsillectomy History of umbilical hernia repair Social History household members: spouse Smoking Status: Former smoker ROS ROS ED ROS Narrative Periumbilical abdominal pain. Mild constipation. Review of Systems ROS Unobtainable: Denies due to encephalopathy Constitutional Constitutional ED: Denies chills or fever(s) ENT ENT ED: Denies ear pain Cardiovascular Cardiovascular: Denies chest pain Respiratory/Chest Respiratory/Chest: Denies cough or dyspnea Gastrointestinal Gastrointestinal: Reports abdominal pain and constipation; Denies diarrhea, melena, nausea or vomiting Genitourinary Genitourinary ED: Denies dysuria or hematuria Musculoskeletal Musculoskeletal: Denies arthralgias or back pain Integumentary Denies abscess or Abrasions Neurologic Neurologic: Denies headache(s) Psychiatric Psychiatric: Denies anxiety or depression Endocrine Endocrinology: Denies polydipsia Hematologic/Lymphatic Hematologic/Lymphatic: Denies easy bleeding, easy bruising or lymphadenopathy Allergic/Immunologic Allergic/Immunologic ED: Denies mouth swelling, tongue swelling or urticaria EXAM Physical Exam Narrative Exam Narrative: 77-year-old male vital signs stable afebrile. H EENT exam unremarkable. Moist with membranes. Neck nontender. Lungs clear. Heart regular rhythm no murmur. Abdomen soft, nondistended normal bowel sounds no peritoneal signs. Minimal periumbilical tenderness. No pulsatile mass. Both the right upper and right lower quadrants are unremarkable. No obvious hernia. No mass. No obvious obstruction. Moving all 4 extremities. Nontender no edema. Neurologically is awake and alert. Back nontender. Const Vital Signs: 08/29/23 08:05 Temperature 96.5 F L Temperature Source Temporal Pulse Rate 104 H Respiratory Rate 16 Blood Pressure 162/68 H Blood Pressure Mean 99 Pulse Ox 96 Oxygen Delivery Method Room Air Positive well nourished and well developed; Negative for obese, cachectic, contractures or unkempt General Appearance ED: well developed and NAD; Negative for unkempt, cachectic, contractures or pallor Nutritional Appearance: Negative for cachectic or obese HEENT Reports moist mucous membranes normocephalic and atraumatic; Negative for trauma or tenderness Eyes PERRL and EOMs intact bilaterally General Eye ED: Negative for pale conjunctiva or scleral icterus Neck no lymphadenopathy, supple and no JVD Lymph Lymphatic: Negative for other Resp normal respiratory effort and clear to auscultation bilaterally Effort and Inspection: Negative for respiratory distress Auscultation: Negative for rales, rhonchi or wheezes Cardio regular rate, regular rhythm, S1 normal heart sound, S2 normal heart sound and no murmurs Rate: Negative for bradycardia or tachycardic Rhythm: Negative for abnormal rhythm GI non-distended and no masses; Negative for non-tender Inspection: Negative for abdominal distention Auscultation: normoactive bowel sounds Palpation: soft and tender; Negative for guarding, rigid, hepatomegaly, splenomegaly, hernia, mass, pulsatile mass or rebound tenderness present Back/Spine no CVA tenderness General Back: Negative for CVA tenderness Cervical Spine: Negative for cervical spine tenderness Thoracic Spine / Upper Back: Negative for thoracic spinal tenderness Lumbar Spine / Lower Back: Negative for lumbar spinal tenderness Coccyx: Negative for other Extremity full ROM General Extremety ED: Negative for edema, tenderness or other findings General Extremity: Negative for edema or other findings Neuro CN's II-XII intact bilaterally and moves all extremities Sensorium / Orientation: alert; Negative for oriented to person, oriented to place, oriented to time, orientation impaired, confused, lethargic or stuporous Motor Exam: strength 5/5 throughout Psych mental status grossly normal and thought process normal Appearance: Negative for unkempt Attitude: No agitated Mood & Affect: Negative for depressed, anxious or tearful Skin no wounds General Skin Exam: Negative for jaundice or pallor Lesions: no lesions Rashes: no rashes Trauma: Negative for abrasion Nails: Negative for discolored MDM MDM MDM Narrative Medical decision making narrative: 77-year-old male with periumbilical abdominal pain. This may be from constipation. Rule out obstruction. Atypical appendicitis. Versus other etio logies. CAT scan and labs. Patient was offered but does not need anything currently for nausea or pain. Could also be but currently is having no urologic symptoms. Patient doing well on repeat exam at 1:05 PM. Abdomen is benign. He and I went over all his test results. He has had no history of pancreatitis in the past and there is a probably just chronic calcifications. He does have a very small easily reducible left inguinal hernia on exam. He will follow-up with that. His pain may be secondary to bowel gas and constipation. To be discharged home on GoLytely. Patient is comfortable with the plan. We went over all his test results. History & Record Review Discussion w/independent historian: Patient Additional record(s) reviewed:: Prior inpatient record, Prior outpatient record, Prior ED visit and Prior labs Lab Data Attestation: I reviewed the patient's lab results. Lab results narrative: CBC shows a white count of 6. H&H 13 and 40. Platelets 155. Electrolytes show sodium 141. Gap 7. Normal BUN of 17 creatinine 1.2. Liver enzymes are normal. Lipase is just mildly elevated 137 as is amylase at 152. UA is normal. Labs: Laboratory Results - last 24 hr 08/29/23 08/29/23 08:45 10:20 WBC 6.2 RBC 4.40 L Hgb 13.0 Hct 40.6 MCV 92.3 MCH 29.5 MCHC 32.0 RDW Std Deviation 45.2 H RDW Coeff of Giovanny 13.3 Plt Count 155 MPV 10.3 Immature Gran % (Auto) 0.500 Neut % (Auto) 58.4 Lymph % (Auto) 22.8 Logan % (Auto) 15.7 H Eos % (Auto) 1.8 Baso % (Auto) 0.8 Absolute Neuts (auto) 3.6 Absolute Lymphs (auto) 1.41 Nucleated RBC % 0 Sodium 141 Potassium 4.1 Chloride 110 H Carbon Dioxide 24.0 Anion Gap 7 BUN 17 Creatinine 1.26 Estim Creat Clear Calc 45.01 Est GFR (MDRD) Af Amer 71 Est GFR (MDRD) Non-Af 59 L BUN/Creatinine Ratio 13.5 Glucose 113 H Calcium 8.7 Total Bilirubin 0.60 AST 22 ALT 22 Alkaline Phosphatase 57 Total Protein 6.5 Albumin 3.5 Globulin 3.0 Albumin/Globulin Ratio 1.2 Amylase 152 H Lipase 137 H Urine Color Yellow Urine Clarity Clear Urine pH 7.0 Ur Specific Merritt 1.005 Urine Protein Negative Urine Glucose (UA) Normal Urine Ketones Negative Urine Occult Blood Negative Urine Nitrite Negative Urine Bilirubin Negative Urine Urobilinogen Normal Ur Leukocyte Esterase Negative Urine RBC 0 SEEN Urine WBC 0 SEEN Ur Squamous Epith Cells 0 SEEN Urine Bacteria 0 SEEN Urine Mucus 0 SEEN Radiography Diagnostic Testing: Clinical Impression(s) from Imaging Studies Abdomen/Pelvis CT 08/29/23 08:27 IMPRESSION: Scattered calcifications in the tail portion of the pancreas. Left renal cysts. Heterogeneous enlargement of the prostate with indentation of the bladder base. The urinary bladder is distended. Prominence of the seminal vesicles with increased markings in the surrounding fat. Inflammatory change of the ruled out. Electronically Signed: Doe Diaz MD at 10:05 EST , Discharge Plan Triage Chief Complaint: Abd Pain ED Provider: Narciso Waller Dx/Rx/DC Orders Clinical Impression: Acute constipation, Abdominal pain Instructions: Abdominal Pain, ED Constipation (Adult) Prescriptions: No Action bupropion HCl 150 mg tablet sustained-release 12 hr 150 mg PO BID atorvastatin 20 mg tablet 20 mg PO QHS [id number] 333-133-5 mg tablet 2 tab PO DAILY multivitamin Tablet 1 tab PO DAILY docusate sodium 100 mg capsule 100 mg PO DAILY senna 8.6 mg capsule 8.6 mg PO QHS PRN PRN (Reason: Constipation) tamsulosin 0.4 mg capsule 0.4 mg PO Q24H Patient Comments: take 1 capsule by mouth at bedtime alendronate 70 mg tablet 70 mg PO .weekly ipratropium bromide 42 mcg (0.06 %) spray,non-aerosol 2 spray INTRANASAL BID Primary Care Provider: Saad Kelley Referrals: Saad Kelley MD [Primary Care Provider] - As Needed Doug Siddiqi MD [Med Staff - Active Staff] - As Needed (As needed for your left groin hernia.) Activity Restrictions/Additional Instructions: Your labs look good. You have a small hernia in your left groin. The pain today is most likely from constipation and bowel gas. Plenty of fluids, fiber, fruits and vegetables. The liquid GoLytely to help you have a bowel movement. Drink 168 ounce glass every hour to you have a large bowel movement. You have a small hernia in your left groin. You can follow-up with the general surgeon Dr. Doug Siddiqi if you want to get evaluated for possible repair. Disposition Disposition: Home, Self Care
[2023-08-29 08:50] LABS: Absolute Lymphocyte Count 1.41 X10^3/uL (0.83-4.51); Absolute Neutrophil Count 3.6 X10^3/uL (2.0-7.7); Basophil# 0.05 X10^3/uL; Basophil% 0.8 % (0-1); Eosinophil# 0.11 X10^3/uL; Eosinophils% 1.8 % (0-5); Hematocrit 40.6 % (40-54); Lymphocyte # 1.41 X10^3/ul (0.83-4.51); Lymphocyte % 22.8 % (19-41); Mean Corpuscular Hgb 29.5 pg (27.0-32.0); Mean Corpuscular Volume 92.3 fL (80-94); Mean Platelet Vol. 10.3 fl (6.2-12.0); Monocyte# 0.97 X10^3/uL; Monocyte% 15.7 % (0-10); NRBC Flagged by Analyzer 0 % (0-5); Neutrophil # 3.62 X10^3/uL (2.7-7.7); Neutrophil % 58.4 % (47-70); Platelet Count 155 K/mm3 (150-450); RBC Distribution Width CV 13.3 % (11.6-14.6); RBC Distribution Width SD 45.2 fl (35.1-43.9); White Blood Count 6.2 K/mm3 (4.4-11.0)
[2023-08-29 09:16] LABS: ALB/GLOB Ratio 1.2 RATIO (0.9-2.4); AST(SGOT) 22 U/L (15-37); Alanine Aminotransfer ALT/SGPT 22 U/L (16-61); Albumin, Serum 3.5 g/dL (3.2-5.0); Alkaline Phosphatase 57 U/L (45-117); Amylase 152 U/L (25-115); Anion Gap 7 (5-15); BUN 17 mg/dL (7-18); BUN/Creat Ratio 13.5 RATIO (10-20); Calcium,Total 8.7 mg/dL (8.5-10.1); Chloride 110 mmol/L (98-107); Creatinine, Serum 1.26 mg/dL (0.70-1.30); EST Glomerular Filtration Rate 59 mL/min (>60); Est Glom Filt Rate - Afr Amer 71 mL/min (>60); Estimated Creatinine Clearance 45.01 ml/min; Glucose 113 mg/dL (74-106); Lipase 137 U/L (13-75); Potassium 4.1 mmol/L (3.5-5.1); Protein, Total 6.5 g/dL (6.4-8.2); Sodium Level 141 mmol/L (136-145)
--- OUTSIDE RECORDS SUMMARY | 2023-08-29 09:18 | XMS RPT_ITS | CCD ---
Author Name Unknown Address [address] [place] [address] Organization [facility] Care Team Providers Care Centrifugal Chiller Technician Name Role Phone ALBERTS, ROCIO P Unavailable Unavailable ALBERTS, ROCIO P Unavailable Unavailable ALBERTS, ROCIO P Unavailable Unavailable ALBERTS, ROCIO P Unavailable Unavailable ALBERTS, ROCIO P Unavailable Unavailable Angelo Riojas Unavailable Unavailable Anjel, Julian Marlon Unavailable [phone] Anjel, Julian Marlon Primary Care Provider [phone] ANJEL, JULIAN MARLON Primary Care Unavailab HAZEL Monroe Attending Unavaila ble HAZEL ORNELAS Attending Unavaila ble HAZEL ORNELAS Referring Unavaila ble ANJEL, JULIAN MARLON Primary Care Unavailab le ANJEL, JULIAN MARLON Primary Care Unavailab ED Nathan Referring Unavailab ED Nathan Attending Unavailab ED Nathan Admitting Unavailab le ANJEL, JULIAN MARLON Primary Care Unavailab DE Nathan Attending Unavailab ED Nathan Admitting Unavailab DIAZ Jolly Attending Unavailabl e ANJEL, JULIAN MARLON Primary Care Unavailab le Anjel, Julian Marlon Primary Care Provider [phone] Anjel DO, Julian Marlon Primary Care Provider ANJEL, JULIAN MARLON Primary Care Unavailab le ANJEL, JULIAN MARLON Primary Care Unavailab le ANJEL, JULIAN MARLON Primary Care Unavailab le Anjel DO, Julian Marlon Primary Care Provider ED BAKER Attending Unavailab le ANJEL, JULIAN MARLON Primary Care Unavailab le ANJEL, JULIAN MARLON Attending Unavailab le ANJEL, JULIAN MARLON Primary Care Unavailab le MEIRING, KELSEY JONES Attending Unavailable ANJEL, JULIAN MARLON Primary Care Unavailab le MEIRING, KELSEY KAREN Admitting Unavailable MEIRING, KELSEY KAREN Referring Unavailable ANJEL, JULIAN MARLON Primary Care Unavailab sandrine FINCHAED Kemp Attending Unavailab le ANJEL, JULIAN MARLON Primary Care Unavailab le MEIRING, KELSEY JONES Attending Unavailable ANJEL, JULIAN MARLON Referring Unavailab le ANJEL, JULIAN MARLON Primary Care Unavailab le MEIRING, KELSEY KAREN Admitting Unavailable MEIRING, KELSEY KAREN Referring Unavailable ANJEL, JULIAN MARLON Primary Care Unavailab le MEIRING, KELSEY MCHUGHEE Attending Unavailable ANJEL, JULIAN MARLON Primary Care Unavailab le MEIRING, KELSEY KAREN Admitting Unavailable MEIRING, KELSEY KAREN Referring Unavailable ANJEL, JULIAN MARLON Primary Care Unavailab le MEIRING, KELSEY KAREN Admitting Unavailable MEIRING, KELSEY KAREN Referring Unavailable ANJEL, JULIAN MARLON Primary Care Unavailab le ANJEL, JULIAN MARLON Attending Unavailab le ANJEL, JULIAN MARLON Primary Care Unavailab le ANJEL, JULIAN MARLON Attending Unavailab le ANJEL, JULIAN MARLON Primary Care Unavailab le ANJEL, JULIAN MARLON Primary Care Unavailab LIANET Figueroa Attending Unavailable ANJEL, JULIAN MARLON Attending Unavailab le ANJEL, JULIAN MARLON Primary Care Unavailab le ANJEL, JULIAN MARLON Attending Unavailab le ANJEL, JULIAN MARLON Primary Care Unavailab le Anjel DO, Julian Marlon Primary Care Provider Warren SHIN, Saad Primary Care Provider [phone] Allergies Allergy Classification Reported Allergen(s) Allergy Type Date of Onset Reaction(s) Facility Acetaminophen / HYDROcodone (4 sources) Acetaminophen / HYDROcodone; Translations: [HYDROCODONE-ACETAM INOPHEN] Drug Allergy 08-03-2020 Itching [facility] Tetracyclines (antibiotic) (4 sources) Tetracycline; Translations: [TETRACYCLINE] Drug Allergy [facility] (20 sources) Tetracycline; Translations: [Unknown] Drug Allergy [facility] (15 sources) Acetaminophen / HYDROcodone; Translations: [HYDROCODONE-ACETAM INOPHEN] Drug Allergy 08-03-2020 Itching [facility] Medications Current Medications Medication Drug Class(es) Dates Sig (Normalized) Sig (Original) acetaminophen 325 mg / oxyCODONE hydrochloride 5 mg oral tablet (3 sources) Opioid Agonist Start: 08-07-2020 End: 08-12-2020 take 1 tablet by mouth every six hours as needed for pain oxyCODONE-acetamino phen (PERCOCET) 5-325 mg per tablet Indications: Other closed intra-articular fracture of distal end of right radius, initial encounter , Acute postoperative pain of extremity Take 1 (one) tablet by mouth every 6 (six) hours as needed for pain Wean down as soon as possible. . 20 tablet 0 08/07/2020 08/12/2020 Active Completed/Discontinued Medications Medication Drug Class(es) Dates Sig (Normalized) Sig (Original) acetaminophen 325 mg / HYDROcodone bitartrate 5 mg oral tablet (4 sources) Opioid Agonist Start: 07-31-2020 End: 08-03-2020 take 1 tablet by mouth every six hours as needed for pain, then take 3 tablets by mouth as needed for pain HYDROcodone-acetam inophen (NORCO) 5-325 mg per tablet Indications: Other closed intra-articular fracture of distal end of right radius, initial encounter , Closed nondisplaced fracture of styloid process of right ulna, initial encounter Take 1 (one) tablet by mouth every 6 (six) hours as needed for pain (Days supply per fill: 3) . 12 tablet 0 07/31/2020 08/03/2020 200 actuat albuterol 0.09 mg/actuat metered dose inhaler (3 sources) beta2-Adrenergic Agonist Start: 04-17-2019 End: 05-18-2019 take 2 puff(s) by inhalation four times daily as needed for cough albuterol 90 mcg/actuation inhaler 2 puffs qid prn cough/wheeze . 1 Inhaler 0 04/17/2019 05/18/2019 Discontinued (Therapy completed) albuterol 0.833 mg/ml / ipratropium bromide 0.167 mg/ml inhalant solution (2 sources) Anticholinergic, beta2-Adrenergic Agonist Start: 04-17-2019 End: 04-17-2019 ipratropium-albute rol (DUO-NEB) 0.5-2.5 mg/3 ml nebulizer solution 3 mL Problems Active Problems Problem Classification Problem Date Documented Date Episodic/Chronic Anxiety disorders (6 sources) Anxiety; Translations: [Anxiety disorder, unspecified] Chronic Disorders of lipid metabolism (20 sources) Hyperlipidemia, unspecified; Translations: [Hyperlipidemia] Onset: 05-05-2018 12-18-2018 Chronic Mood disorders (20 sources) Major depressive disorder, recurrent, in full remission; Translations: [Depressive disorder] Onset: 05-05-2018 12-18-2018 Chronic Mycoses (1 source) Tinea cruris; Translations: [Tinea cruris] Episodic Other circulatory disease (1 source) Syncope due to orthostatic hypotension; Translations: [Orthostatic syncope] Episodic Other circulatory disease (1 source) Elevated blood-pressure reading without diagnosis of hypertension; Translations: [Elevated blood pressure reading without diagnosis of hypertension] Episodic Other connective tissue disease (1 source) Pain in limb; Translations: [Acute postoperative pain of extremity] Episodic Other hematologic conditions (1 source) H/O: anemia - iron deficient; Translations: [Personal history of diseases of the blood and blood-forming organs and certain disorders involving the immune mechanism] Episodic Other injuries and conditions due to external causes (1 source) Fracture of bone; Translations: [Fracture] Episodic Other injuries and conditions due to external causes (2 sources) H/O: fracture; Translations: [S/P ORIF (open reduction internal fixation) fracture] Episodic Other male genital disorders (2 sources) Impotence of organic origin; 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] Onset: 05-31-2019 05-31-2019 Chronic Other male genital disorders (6 sources) 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; 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] Onset: 05-31-2019 05-31-2019 Chronic Other male genital disorders (12 sources) 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; 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] Onset: 05-31-2019 05-31-2019 Other non-traumatic joint disorders (3 sources) Pain in left knee; Translations: [PAIN IN LEFT KNEE] Onset: 05-14-2018 Episodic Other skin disorders (1 source) Eruption; Translations: [Target rash] Episodic Unclassified (1 source) Unknown / UNK(Unknown) Onset: 07-05-2018 Unclassified (3 sources) Patient encounter status; Translations: [Screening for AAA (abdominal aortic aneurysm)] Unclassified (1 source) Preprocedural examination done; Translations: [Preop examination] Unclassified (11 sources) Closed fracture of distal end of right radius; Translations: [Closed fracture of right distal radius] Onset: 08-03-2020 08-03-2020 Past or Other Problems Problem Classification Problem Date Documented Da te Episodic/Chronic Fracture of upper limb (14 sources) Closed fracture of distal end of radius; Translations: [Closed fracture of styloid process of ulna] Onset: 08-03-2020 08-03-2020 Episodic Other lower respiratory disease (2 sources) Lower respiratory tract infection; Translations: [Lower respiratory tract infection] Episodic Other non-traumatic joint disorders (1 source) Knee pain; Translations: [Chronic pain of left knee] Episodic Other screening for suspected conditions (not mental disorders or infectious disease) (20 sources) Raised prostate specific antigen; Translations: [Viral screening status] Onset: 05-31-2019 05-31-2019 Episodic Sprains and strains (3 sources) Strain of abdominal muscle; Translations: [Low back strain] Episodic Syncope (1 source) Syncope Onset: 07-06-2018 Results Test Name Value Interpretation Reference Range Facil ity Vital Signs Date Time Vital Sign Value Performing Clinician Kelly johnson 11-09-2020 12:49-0400 Body mass index (BMI) [Ratio] 24.54 kg/m2 Julian Anjel DO Work Phone: [facility] 11-09-2020 12:49-0400 Body temperature 97.81 [degF] Julian Anjel DO Work Phone: [facility] 11-09-2020 12:49-0400 Body weight 73.21 kg Julian Anjel DO Work Phone: [facility] 11-09-2020 12:49-0400 Diastolic blood pressure 84 mm[Hg] Julian Anjel DO Work Phone: [facility] 11-09-2020 12:49-0400 Heart rate 70 /min Julian Anjel DO Work Phone: [facility] 11-09-2020 12:49-0400 Respiratory rate 16 /min Julian Anjel DO Work Phone: [facility] 11-09-2020 12:49-0400 Systolic blood pressure 131 mm[Hg] Julian Anjel DO Work Phone: [facility] 10-05-2020 10:20-0400 BMI (Body Mass Index) 24.94 kg/m2 Kelsey [facility] 10-05-2020 10:20-0400 Body weight 74.39 kg Kelsey [facility] 10-05-2020 10:20-0400 Height 172.7 cm [facility] 08-24-2020 14:28-0500 BMI (Body Mass Index) 24.94 kg/m2 Kelsey [facility] 08-24-2020 14:28-0500 Body weight 74.39 kg Kelsey [facility] 08-24-2020 14:28-0500 Height 172.7 cm [facility] 08-24-2020 14:28-0500 Respiratory Rate 16 /min Kelsey [facility] 08-07-2020 12:41-0500 Body Temperature 98.6 [degF] [facility] 12:41-0500 BP Diastolic 87 mm[Hg] [facility] 12:41-0500 BP Systolic 170 mm[Hg] [facility]-07-2020 12:41-0500 Pulse (Heart Rate) 96 /min [facility] 08-07-2020 12:41-0500 Pulse Oximetry 93 % [facility] 08-07-2020 12:41-0500 Respiratory Rate 16 /min [facility] 08-07-2020 09:02-0500 BMI (Body Mass Index) 25.07 kg/m2 [facility] 08-07-2020 09:02-0500 Body weight 74.8 kg Ed Baker [facility] 08-07-2020 09:02-0500 Height 172.7 cm Ed Baker [facility] 08-03-2020 10:05-0500 BP Diastolic 91 mm[Hg] Julian [employer] [facility] 08-03-2020 10:05-0500 BP Systolic 166 mm[Hg] Julian [employer] [facility] 08-03-2020 10:04-0500 Body Temperature 97.39 [degF] Julian [employer] [facility] 08-03-2020 10:04-0500 Pulse (Heart Rate) 74 /min [employer] [facility] 08-03-2020 10:04-0500 Respiratory Rate 16 /min [employer] [facility] 07-31-2020 10:07-0500 BMI (Body Mass Index) 25.09 kg/m2 [facility] 07-31-2020 10:07-0500 Body Temperature 98.8 [degF] Diaz [facility] 07-31-2020 10:07-0500 Body weight 74.84 kg Diaz [facility] 07-31-2020 10:07-0500 BP Diastolic 84 mm[Hg] Diaz [facility] 07-31-2020 10:07-0500 BP Systolic 177 mm[Hg] Diaz [facility] 07-31-2020 10:07-0500 Height 172.7 cm Diaz [facility] 07-31-2020 10:07-0500 Pulse (Heart Rate) 86 /min Diaz [facility] 07-31-2020 10:07-0500 Pulse Oximetry 95 % Diaz [facility] 07-31-2020 10:07-0500 Respiratory Rate 14 /min Diaz Treadwell [facility] 05-31-2019 10:07-0500 BMI (Body Mass Index) 25.24 kg/m2 Emanuel Sanchez [facility] 05-31-2019 10:07-0500 Body weight 75.3 kg Emanuel Sanchez [facility] 05-31-2019 10:07-0500 BP Diastolic 74 mm[Hg] Emanuel HearMeOuteda [facility] 05-31-2019 10:07-0500 BP Systolic 139 mm[Hg] Emanuel Daniel [facility] 05-31-2019 10:07-0500 Pulse (Heart Rate) 90 /min Emanuel Sanchez [facility] 05-31-2019 10:07-0500 Pulse Oximetry 95 % Emanuel Sanchez [facility] 05-31-2019 10:07-0500 Respiratory Rate 17 /min Emanuel Sanchez [facility] 05-18-2019 10:16-0500 BMI (Body Mass Index) 25.24 kg/m2 [employer] [facility] 05-18-2019 10:16-0500 Body weight 75.3 kg [employer] 05-18-2019 10:16-0500 BP Diastolic 73 mm[Hg] [employer] [facility] 05-18-2019 10:16-0500 BP Systolic 116 mm[Hg] [employer] [facility] 05-18-2019 10:16-0500 Pulse (Heart Rate) 82 /min [employer] 05-18-2019 10:16-0500 Respiratory Rate 16 /min [employer] 04-17-2019 09:36-0400 BP Diastolic 79 mm[Hg] Hazel Ornelas [facility] 04-17-2019 09:36-0400 BP Systolic 127 mm[Hg] Hazel Ornelas [facility] 04-17-2019 09:36-0400 Pulse Oximetry 94 % Hazel Ornelas [facility] 04-17-2019 09:34-0400 BMI (Body Mass Index) 25.24 kg/m2 Hazel Ornelas [facility] 04-17-2019 09:34-0400 Body Temperature 98.29 [degF] Hazel Ornelas [facility] 04-17-2019 09:34-0400 Body weight 75.3 kg Hazel Ornelas [facility] 04-17-2019 09:34-0400 Pulse (Heart Rate) 94 /min Hazel Ornelas [facility] 04-17-2019 09:34-0400 Respiratory Rate 16 /min Hazel Ornelas [facility] 12-09-2018 09:12-0400 BMI (Body Mass Index) 25.24 kg/m2 [employer] 12-09-2018 09:12-0400 BP Diastolic 82 mm[Hg] [employer] [facility] 12-09-2018 09:12-0400 BP Systolic 136 mm[Hg] Julian Anjel [facility] 12-09-2018 09:12-0400 Pulse (Heart Rate) 66 /min Julian Anjel [facility] 12-09-2018 09:12-0400 Weight 75.3 kg Julian Anjel [facility] 10-13-2018 10:13-0400 BMI (Body Mass Index) 25.7 kg/m2 Julian Anjel [facility] 10-13-2018 10:13-0400 Body weight 76.66 kg Julian Anjel [facility] 10-13-2018 10:13-0400 BP Diastolic 64 mm[Hg] Julian Anjel [facility] 10-13-2018 10:13-0400 BP Systolic 122 mm[Hg] Julian Anjel [facility] 10-13-2018 10:13-0400 Pulse (Heart Rate) 70 /min Julian Anjel [facility] 07-15-2018 09:59-0500 BMI (Body Mass Index) 25.61 kg/m2 Julian Anjel [facility] 07-15-2018 09:59-0500 BP Diastolic 80 mm[Hg] Julian Anjel [facility] 07-15-2018 09:59-0500 BP Systolic 139 mm[Hg] Julian Anjel [facility] 07-15-2018 09:59-0500 Height 172.7 cm Julian Anjel [facility] 07-15-2018 09:59-0500 Pulse (Heart Rate) 101 /min Julian Anjel [facility] 07-15-2018 09:59-0500 Respiratory Rate 16 /min Julian Anjel [facility] 07-15-2018 09:59-0500 Weight 76.39 kg [email or web address] Encounters Encounter Date Encounter Type Care Provider Facility Start: 12-04-2022 Refill Julian Marlon Ajnel DO Work Phone: [facility] Start: 11-07-2021 Refill Julian Marlon Anjel DO Work Phone: [facility] Start: 07-29-2021 Refill Julian Marlon Anjel DO Work Phone: [facility] Procedures Date Procedure Procedure Detail Performing Clinician Start: 08-07-2020 Radex wrist complete minimum 3 views Ed Baker Work Phone: Start: 07-31-2020 Radex wrist complete minimum 3 views Anam Burns Work Phone: Start: 07-31-2020 Radex wrist complete minimum 3 views Shireen Mariano Work Phone: Start: 05-21-2019 Us abdominal aorta r eal time screen study aaa Julian Zamoranok Work Phone: Start: 05-18-2019 Adult depression screening assessment [facility] Start: 04-17-2019 Standard chest X-ray Kelvin Ornelas Work Phone: Plan of Treatment Date Care Activity Detail Author Start: 03-07-2023 Influenza vaccination Sequential Influenza Vaccine (Season Ended) [facility] Start: 01-07-2023 Tetanus vaccination [facility] Start: 11-09-2022 Prostate specific antigen measurement PSA Level [facility] Start: 04-07-2022 Screening for malignant neoplasm of colon [facility] Start: 03-07-2022 Influenza vaccination Sequential Influenza Vaccine (Season Ended) [facility] Start: 11-09-2021 History and physical examination, annual for health maintenance Wellness Visit [facility] Start: 11-08-2021 Fall risk assessment Falls Risk Assessment [facility] Start: 05-25-2021 COVID-19 Vaccine (4 - Booster for Pfizer series) COVID-19 Vaccine (4 - Booster for Pfizer series) [facility] Start: 05-18-2021 Prostate specific antigen measurement PSA Level [facility] Start: 03-07-2021 Influenza vaccination Sequential Influenza Vaccine (#1) [facility] Start: 11-02-2020 End: 11-02-2020 Office Visit 11/02/2020 Office Visit Orthopedic Surgery Kelsey Smallwood, [employer] [facility] [address] [place] [address] [phone] [facility] Start: 10-05-2020 End: 10-05-2020 Office Visit 10/05/2020 Office Visit Orthopedic Surgery Kelsey Smallwood, [employer] [facility] [address] [place] [address] [phone] [facility] Start: 09-19-2020 COVID-19 Vaccine (2 of 2 - Pfizer series) COVID-19 Vaccine (2 of 2 - Pfizer series) [facility] Start: 09-19-2020 End: 09-19-2020 Immunization 09/19/2020 Immunization Primary Care Melissa Tello MD [address] [place] [address] [phone] [facility] Start: 08-29-2020 End: 08-29-2020 Immunization 08/29/2020 Immunization Primary Care [facility] Start: 08-24-2020 End: 08-24-2020 Office Visit 08/24/2020 Office Visit Orthopedic Surgery Kelsey Smallwood, [facility] [address] [place] [address] [phone] [facility] Start: 08-07-2020 End: 08-07-2020 Hospital Encounter [facility] Immunizations Immunization Date Immunization Notes Care Provider Fa [facility] 03-30-2021 Pfizer SARS-CoV-2 Vaccination Julian Anjel DO Work Phone: [facility] 01-29-2021 zoster vaccine recombinant A usten Anjel DO Work Phone: [facility] 09-19-2020 Pfizer SARS-CoV-2 Vaccination Mary Ellen Martin [facility] 08-29-2020 Pfizer SARS-CoV-2 Vaccination Jami Méndez [facility] 04-06-2020 INFLUENZA IIV4 [id number] A usten Anjel DO Work Phone: [facility] 04-06-2020 influenza virus vacc ine, unspecified formulation Julian Anjel [facility] 07-28-2019 zoster vaccine recombinant Julian Mu sick [facility] 03-10-2019 Seasonal trivalent influenza vaccine, adjuvanted, preservative free Julian Anjel [facility] 05-12-2018 pneumococcal conjuga te vaccine, 13 valent Julian Anjel [facility] 04-13-2018 influenza, injectabl e, quadrivalent, contains preservative Julian Anjel [facility] 04-12-2018 influenza, high dose seasonal, preservative-free Julian Anjel [facility] 05-06-2017 influenza, high dose seasonal, preservative-free Julian Anjel [facility] 05-06-2017 pneumococcal polysac charide vaccine, 23 valent Julian Anjel [facility] 04-06-2016 influenza, injectabl e, quadrivalent, contains preservative Julian Anjel [facility] 04-06-2016 pneumococcal vaccine , unspecified formulation Julian Anjel [facility] 07-07-2014 pneumococcal polysac charide vaccine, 23 valent Juilan Anjel [facility] 04-20-2014 influenza, high dose seasonal, preservative-free Julian Anjel DO Work Phone: [facility] 03-01-2013 influenza, seasonal, injectable Julian Anjel [facility] 01-07-2013 tetanus toxoid, redu aleksandr diphtheria toxoid, and acellular pertussis vaccine, adsorbed Julian Anjle [facility] 07-07-2012 zoster vaccine, live Julian Anjel [facility] Payers Date Payer Category Payer Medicare [employer]HC MANAGED MEDI CARE UHC/AARP MEDICARE HMO/HMO-POS xxxxxxxxx 2018-Present xxxxxxxxx [id number] 2018 Medicare [id number] 2018 Medicare UHC MANAGED MEDI CARE UHC MEDICARE HMO/HMO-POS [id number] 2018-Present [id number] 2018 Medicare UHC MANAGED MEDI CARE UHC MEDICARE HMO/HMO-POS [id number] 2018-Present [phone] [address] [place] [address] [id number] 2017 Unknown 1945 Unknown [id number] 2.16.840.1.067978.3.579.2.584 1946 Unknown [id number] 2.16.840.1.846355.3.579.2.584 1946 Unknown [id number] 2.16.840.1.090023.3.579.2.584 1946 Unknown [id number] 2.16.840.1.584638.3.579.2.90 1946 Unknown [id number] 2.16.840.1.968837.3.579.2. 1946 Unknown [id number] 2.16840.1.924616.3.579.290 1946 Unknown [id number] 2.840.1.516701.3.579.2. 1946 Unknown [id number] 2.840.1.835139.3.579.2.90 1946 Unknown [id number] 2.840.1.161127.3.579.2.900 1946 Unknown [id number] 2.840.1.158582.3.579.2.900 1946 Unknown [id number] .840.1.187290.3.579.2.900 1946 Unknown [id number] 2.16840.1.676598.3.579.2.90 1946 Unknown [id number] 2.16.840.1.382868.3.579.2. 1946 Unknown [id number] 2.16840.1.677357.3.579.2.90 1946 Unknown [id number] 2.16840.1.104666.3.579.2. 1946 Unknown [id number] 2.16.840.1.978343.3.579.2.903 1946 Unknown [id number] 2.16.840.1.748435.3.579.2.90 1946 Unknown [id number] 2.16.840.1.888729.3.579.2.90 1946 Unknown [id number] 2.16.840.1.843977.3.579.2.90 1946 Unknown [id number] 2.16.840.1.929046.3.579.2.90 1946 Unknown [id number] 2.16.840.1.883360.3.579.2.90 1946 Unknown [id number] 2.16.840.1.464143.3.579.2. 1946 Unknown [id number] 2.16.840.1.765456.3.579.2.90 1946 Unknown [id number] 2.16.840.1.485073.3.579.2.90 1946 Unknown [id number] 2.16.840.1.564811.3.579.2.90 1946 Unknown [id number] 2.16.840.1.964925.3.579.2.903 Social History Date Type Detail Facility Start: 07-15-2018 End: 11-09-2020 Tobacco smoking status KYIS Former smoker [facility] Start: 1945 [facility] Start: 07-15-2018 Alcohol Comment 1 drink per month Oh Wilson [facility] Start: 07-15-2018 End: 05-31-2019 Tobacco use and exposure Never used [facility] Start: 05-31-2019 End: 11-09-2020 Alcohol intake Current drinker of alcohol (finding) [facility] Exposure to SARS-CoV -2 (event) Not sure [facility] History of tobacco use Current smoker [facility] Start: 05-18-2019 End: 11-09-2020 History of Social function [facility] Start: 05-18-2019 End: 11-09-2020 Tobacco use panel [facility] PHQ-2 Score 0 [facility] Start: 05-19-2019 Gender identity Identifies as male gender (finding) [facility] Start: 05-19-2019 Sexual orientation Heterosexual (atiya pennington) [facility] Medical Equipment Procedure Code Equipment Code Equipment Origin al Text Equipment Identifier Dates Plate 2.4mm 6hl Head 3hl Shaft Distal [place] Rt 02111.630 - [id number]. [id number] Start: 08-07-2020 Screw 2.7 X 16mm Cortex Self-Tap T8 Strdrv Rec - [id number]. [id number] Start: 08-07-2020 Screw 2.7 X 14mm Cortex Self-Tap T8 Strdrv Rec - [id number]. [id number] Start: 08-07-2020 Telephone encounter Note 12-05-2022 Telephone Encounter - Cheyanne Metcalf MA - 12/05/2022 9:21 AM EDT Note Date & Type Note Facility 12-05-2022 Telephone encounter Note Form atting of this note might be different from the original. Pt canceled this appt. He said he'd f/u with his PCP in [place]. Pt now sees Dr. Saad Kelley. No further action needed. [facility] Note 12-05-2022 Telephone Encounter - Cheyanne Metcalf MA - 12/05/2022 9:21 AM EDTTelephone Encounter - Cheyanne Metcalf MA - 12/05/2022 8:22 AM EDT Note Date & Type Note Facility 12-05-2022 Miscellaneous Notes Formattin g of this note might be different from the original. Pt canceled this appt. He said he'd f/u with his PCP in [place]. Pt now sees Dr. Saad Kelley. No further action needed. Pt scheduled for f/u appt. Pt declined a physical. Patient hasn't been since 2020,needs appt. documented in this encounter [facility] Telephone encounter Note 12-05-2022 Telephone Encounter - Cheyanne Metcalf MA - 12/05/2022 8:22 AM EDT Note Date & Type Note Facility 12-05-2022 Telephone encounter Note Form atting of this note might be different from the original. Pt scheduled for f/u appt. Pt declined a physical. [facility] Telephone encounter Note 12-04-2022 Telephone Encounter - Jhonny Ramirez - 12/04/2022 1:38 PM EDT Note Date & Type Note Facility 12-04-2022 Telephone encounter Note Form atting of this note might be different from the original. Patient hasn't been since 2020,needs appt. [facility] History of Present illness Narrative 11-09-2020 Julian Hobbs DO - 11/09/2020 12:50 PM EDT Note Date & Type Note Facility 11-09-2020 History of Presen t illness Narrative [facility] Patient Name: Tom Guzman Date: 11/09/20 Patient : 1945 Patient Age: 74 y.o. CC: No chief complaint on file. SUBJECTIVE Patient presents for a full history and physical. The patient had a tetanus booster in 2012. Review of Systems: CONSTITUTIONAL: No weight loss, fever, chills, weakness or fatigue. HEENT: Eyes: No visual loss, blurred vision, double vision or yellow sclerae. Ears, Nose, Throat: No hearing loss, sneezing, congestion, runny nose or sore throat. SKIN: No rash or itching. CARDIOVASCULAR: No chest pain, chest pressure or chest discomfort. No palpitations or edema. RESPIRATORY: No shortness of breath, cough or sputum. GASTROINTESTINAL: No anorexia, nausea, vomiting or diarrhea. No abdominal pain or blood. GENITOURINARY: No dysuria, discharge or bleeding. NEUROLOGICAL: No headache, dizziness, syncope, paralysis, ataxia, numbness or tingling in the extremities. No change in bowel or bladder control. MUSCULOSKELETAL: No muscle, back pain, joint pain or stiffness. HEMATOLOGIC: No anemia, bleeding or bruising. LYMPHATICS: No enlarged nodes. No history of splenectomy. PSYCHIATRIC: No history of depression or anxiety. ENDOCRINOLOGIC: No reports of sweating, cold or heat intolerance. No polyuria or polydipsia. ALLERGIES: No history of asthma, hives, eczema or rhinitis. Past Medical History: Diagnosis Date Anxiety Depression Hyperlipidemia Seasonal allergies Past Surgical History: Procedure Laterality Date HERNIA REPAIR ORIF WRIST Right 08/07/2020 Procedure: Open reduction and internal fixation of 3-part intra-articular (CPT # 39910) right distal radius fracture.; Surgeon: Ed Baker DO; Location: Main OR; Service: Orthopedic TONSILLECTOMY Current Outpatient Medications Medication Sig Dispense Refill atorvastatin (LIPITOR) 20 MG tablet Take 1 (one) tablet (20 mg total) by mouth daily . 90 tablet 3 buPROPion (WELLBUTRIN) 75 MG tablet TAKE 2 TABLETS BY MOUTH TWICE A DAY 360 tablet 1 C,E,zinc,copper 11/sksbu7c/lut (OCUVITE ADULT 50 PLUS ORAL) gqbkjpy-blevtmtbq-milg 333-133-8.3 mg Tab docusate sodium (COLACE) 100 MG capsule ferrous sulfate 325 (65 FE) MG tablet fexofenadine (NAHUN) 180 MG tablet glucosamine-chondroitin 500-400 mg tablet Take 1 tablet by mouth 3 (three) times a day . multivit-mins/iron/folic/lycop (CENTRUM MEN ORAL) omega 4-qay-zzh-fish oil (FISH OIL) 1,000 mg (120 mg-180 mg) cap Take by mouth . senna (SENNA CONCENTRATE) 8.6 mg tablet Take 1 tablet by mouth 2 (two) times a day . clotrimazole (LOTRIMIN) 1 % cream Apply topically 2 (two) times a day . 30 g 2 naproxen (NAPROSYN) 500 MG tablet One po bid x 7 days, then one po bid as needed . (Patient not taking: Reported on 11/09/2020 .) 180 tablet 0 No current facility-administered medications for this visit. Allergies: Tetracycline and Vicodin [hydrocodone-acetaminophen] Social History Socioeconomic History Marital status: Spouse name: Not on file Number of children: Not on file Years of education: Not on file Highest education level: Not on file Occupational History Not on file Social Needs Financial resource strain: Not on file Food insecurity Worry: Not on file Inability: Not on file Transportation needs Medical: Not on file Non-medical: Not on file Tobacco Use Smoking status: Former Smoker Smokeless tobacco: Never Used Substance and Sexual Activity Alcohol use: Yes Comment: 1 drink per month Drug use: No Sexual activity: Not on file Lifestyle Physical activity Days per week: Not on file Minutes per session: Not on file Stress: Not on file Relationships Social connections Talks on phone: Not on file Gets together: Not on file Attends mandaeism service: Not on file Active member of club or organization: Not on file Attends meetings of clubs or organizations: Not on file Relationship status: Not on file Other Topics Concern Not on file Social History Narrative Not on file Family History Problem Relation Age of Onset No Known Problems Mother No lung problems No Known Problems Father Diet: The patient reports a well-balanced diet Exercise: The patient reports appropriate amount of cardiovascular activity and resistance training for their age and medical history. Anticipatory Guidance / Screening: We reviewed common risk factors appropriate for their age, discussed appropriate vaccinations, and appropriate risk screening. OBJECTIVE Vital Signs: BP 131/84 Pulse 70 Temp 97.8 F (36.6 C) Resp 16 Wt 73.2 kg (161 lb 6.4 oz) BMI 24.54 kg/m General: Alert, cooperative, well appearing, in no apparent distress. Head: Head is symmetric, normocephalic without evidence of trauma or deformity. Eyes: Pupils are equally round and reactive to light with accommodation. The extra-ocular movements are intact. The lids are without swelling, lesions, or drainage. The conjunctiva is clear and noninjected. ENT: The external auditory canals are without swelling or drainage. The tympanic membranes are intact, clear, and non-erythematous. The septum is midline. The sinuses are nontender to palpation. The nasal mucosa is pink without drainage. The tongue and mucous membranes are pink and moist without lesions. The dentition is generally in good health. The pharynx is non-erythematous without exudates. Neck: There is normal range of motion. The thyroid is normal size without nodules or masses. There is no lymphadenopathy. CV: The heart sounds are regular in rate and rhythm. There is a normal S1 and S2. There or no murmurs, rubs, or gallops. Distal pulses are intact and equal. Lungs: Inspiratory and expiratory efforts are full and unlabored. Lung sounds are clear and equal to auscultation throughout all lung [place] without wheezing, rales, or rhonchi. GI: The abdomen is soft and nontender. Bowel sounds are present in all 4 quadrants. There is no hepatosplenomegaly or other masses. There is no rebound or guarding. There is no CVA or suprapubic tenderness. Extremities: There is no clubbing, cyanosis, or edema. 2+ peripheral pulses. Neurological: Cranial nerves II-XII, cerebellar function and mental status are intact. There are no obvious focal sensory or motor deficits. DTR s are 2+/4 in the upper and lower extremity bilaterally. Strength is 5/5 in the upper and lower extremity bilaterally. Skin: The skin is without jaundice. It is intact without pathologic lesions, erythema, vesicles, discharge. Localized erythema noted in the right inguinal region. ASSESSMENT / PLAN 1. Well adult exam PSA Monitor Lipid Panel Comprehensive Metabolic Panel 2. Elevated PSA PSA Monitor 3. Hyperlipidemia, unspecified hyperlipidemia type Lipid Panel Comprehensive Metabolic Panel 4. Screening for diabetes mellitus Comprehensive Metabolic Panel 5. Hx of iron deficiency anemia CBC and Differential Iron Study with Ferritin 6. Anxiety 7. Jock itch clotrimazole (LOTRIMIN) 1 % cream We will obtain fasting blood work. Results will be communicated to the patient via MyChart or a phone call. We reviewed appropriate preventative health screening guidelines. The patient is up-to-date on tetanus. We discussed regular aerobic exercise. We discussed proper nutrition and weight control. Patient Counseling: --Nutrition: Stressed importance of moderation in sodium/caffeine intake, saturated fat and cholesterol, caloric balance, sufficient intake of fresh fruits, vegetables, fiber, calcium, iron, and 1 mg of folate supplement per day (for females capable of ). --Exercise: Discussed importance and recommendations of aerobic exercise, weight training, and stretching --Substance Abuse: Discussed cessation/primary prevention of tobacco, alcohol, or other drug use; driving or other dangerous activities under the influence; --Sexuality: Discussed sexually transmitted diseases, partner selection, use of condoms, avoidance of unintended and contraceptive alternatives. --Injury prevention: Discussed safety belts, safety helmets, smoke detector, smoking near bedding or upholstery. --Dental health: Discussed importance of regular tooth brushing, flossing, and dental visits. --Immunizations reviewed. Orders Placed This Encounter Procedures PSA Monitor Standing Status: Future Number of Occurrences: 1 Standing Expiration Date: 11/09/2021 Order Specific Question: Release to patient Answer: Immediate Lipid Panel Standing Status: Future Number of Occurrences: 1 Standing Expiration Date: 11/10/2021 Order Specific Question: Release to patient Answer: Immediate Comprehensive Metabolic Panel Standing Status: Future Number of Occurrences: 1 Standing Expiration Date: 11/10/2021 Order Specific Question: Release to patient Answer: Immediate CBC and Differential Standing Status: Future Number of Occurrences: 1 Standing Expiration Date: 11/10/2021 Order Specific Question: Release to patient Answer: Immediate Iron Study with Ferritin Standing Status: Future Number of Occurrences: 1 Standing Expiration Date: 11/09/2021 Order Specific Question: Release to patient Answer: Immediate Return in about 1 year (around 11/09/2021) for Annual Recheck. Julian Hobbs DO documented in this encounter [facility] Note 10-30-2020 Telephone Encounter - Kinjal Myers - 10/30/2020 3:12 PM EDTTelephone Encounter - Kinjal Myers - 10/26/2020 2:31 PM EDT Note Date & Type Note Facility 10-30-2020 Miscellaneous Notes Pt notified refills documented in this encounter [facility] Evaluation note Note Date & Type Note Facility documented in this encounter [facility] Evaluation note Note Date & Type Note Facility documented in this encounter [facility] Evaluation note Note Date & Type Note Facility documented in this encounter [facility] Summary Purpose Family History No Family History Records FoundNo Family History Records FoundNo Family History Records FoundNo Family History Records FoundNo Family History Records Found Advance Directives Documents on File Type Date Recorded Patient Animal Feeder Expl anation Advance Directives and Living Will Documents on File Type Date Recorded Patient Animal Feeder Expl anation Advance Directives and Livin g Will 05/21/2019 4:11 PM See media Documents on File Type Date Recorded Patient Animal Feeder Expl anation Advance Directives and Livin g Will 05/21/2019 4:11 PM See media Documents on File Type Date Recorded Patient Animal Feeder Expl anation Advance Directives and Livin g Will 08/07/2020 8:41 AM See media Documents on File Type Date Recorded Patient Animal Feeder Expl anation Advance Directives and Livin g Will 08/07/2020 8:41 AM See media Documents on File Type Date Recorded Patient Animal Feeder Expl anation Advance Directives and Living Will Hospital Course Note CLINICAL SUMMARYPlease take this summary document to your follow up appointments. [facility] 07/06/18 [id number] [place], [place]. [id number]: PATIENT INFORMATION Name: TOM GUZMAN Address: [address] [address] Age: 72 Years Phone: [phone] : 1945 12:00 MRN: [id number] Sex: Male Race: White Ethnicity: Not Hispan/Lat Admitted From: [facility] Medical Service: Internal Medicine Nurse Unit/Bed: (CO) 7TWH [id number] Admit Date: 07/05/2018 10:07 PCP: Rocio Alberts DO INVOLVED WITH CARE Attending Physicians: Angelo Riojas DO - Internal Medicine Admitting Physician: None found Primary Care Physician:Rocio Alberts DO,,,,,,, - Consults: None found DIAGNOSES:Orthostatic syncope Problems Active DepressionAllergies tetracycline (swollen feet)Procedures No Procedures DocumentedMEA (more content not included)... History of Present Illness * Julian Hobbs, DO - 07/15/2018 10:08 AM EST Formatting of this note may be different from the original. [facility] Patient Name: Tom Guzman Date: 07/15/18 Patient : 1945 Patient Age: 72 y.o. CC: Chief Complaint Patient presents with [facility] on 07/06/2018 patient fell and lossed conciousness went to [facility] ED. Patient states that his legs just gave out on him. Today he states that his mid section and bilateral legs are sore. SUBJECTIVE Patient presents to [facility]. The patient states he was in [place] ER overnight for a syncopal episode. This is never happened to him before. He states he was just getting up from a seatedposition and felt lightheaded and ended up passing out. He was transported by squad to the hospital. He states since that time he has had some abdominal and lower back pain. He has never had this before. He has not had any recurrent near syncope episodes. He states he was told it was probably a combination of his Wellbutrin and a sinus medication he was taking. He has been on Wellbutrin since 2007. There is been no recent change in dose. The remaining constitutional, ENT, cardiovascular, respiratory, musculoskeletal system review of systems was negative unless otherwise noted. The patient s past medical history, allergies, medication list, social history, and family medical history were documented and reviewed in the chart. OBJECTIVE BP 139/80 Pulse (!) 101 Resp 16 Ht 5' 8 Wt 76.4 kg (168 lb 6.4 oz) BMI 25.61 kg/m General: alert, cooperative, well appearing, in no apparent distress. Head: Head is symmetric, normocephalic without evidence of trauma or deformity. Eyes: Pupils are equally round and reactive to light with accommodation. The extra-ocular movementsare intact. The lids are without swelling, lesions, or drainage. The conjunctiva is clear and noninjected. ENT: The septum is midline. The maxillary and frontal sinuses are nontender to palpation. The nasalmucosa is pink with scant purulent drainage. The tongue and mucous membranes are pink and moist without lesions. The dentition is generally in good health. The pharynx is non-erythematous without exudates. CV: The heart sounds are regular in rate and rhythm. There is a normal S1 and S2. There or no murmurs, rubs, or gallops. Distal pulses are intact and equal. Lungs: Inspiratory and expiratory efforts are full and unlabored. Lung sounds are clear and equal to auscultation throughout all lung [place] without wheezing, rales, or rhonchi. Extremities: There is no clubbing, cyanosis, or edema. 2+ peripheral pulses. GI: The abdomen is soft and nontender. Bowel sounds are present in all 4 quadrants. There is no hepatosplenomegaly or other masses. There is no rebound or guarding. There is no CVA or suprapubic tenderness. Musculoskeletal: The patient s gait is normal.There is no obvious deformity. Gait is normal. There is normal active range of motion of all four extremities. Motor and sensory function is grossly intact. There are no focal deficits. There is tenderness to palpation of the lumbar paraspinals, specifically the right quadratus lumborum. There is also reproducible pain with resisted abdominal flexion. Neurological: Cranial nerves II-XII are intact. There is no obvious focal sensory or motor deficits. DTR s are 2+/4 in the upper and lower extremity bilaterally. Strength is 5/5 in the upper and lower extremity bilaterally. Psych: alert and oriented x 3. NAD. No outward signs of psychosis. Well kempt. No odor. No lethality noted. Good mood. Full affect. Able to concentrate on conversation. Linear / logical thinking. ASSESSMENT / PLAN 1. Orthostatic syncope 2. Hyperlipidemia, unspecified hyperlipidemia type 3. Strain of abdominal muscle, initial encounter 4. Strain of lumbar region, initial encounter 5. Anxiety Patient will continue current medications. He will use NSAIDs as needed. He was given home exercises for stretching. We will request records from ER visit. Further plan pending records review. Julian Hobbs DO Note: To expedite correspondence, this note was generated by [employer] recognition software. Some grammatical or spelling errors may occur using the system. in this encounter* Julian Hobbs DO - 12/09/2018 10:39 AM EDT [facility] Patient Name: Tom Guzman Date: 12/09/18 Patient : 1945 Patient Age: 73 y.o. CC: Chief Complaint Patient presents with Rash L wrist. SUBJECTIVE: The patient presents complaining of one-week history of rash on the dorsum of his left forearm. He denies any soaps or detergents that are new. He denies any new exposures. He works outside in the yard. It is not itchy. It is not draining. He states when it first started, it was more erythematous surrounding the rash but that has since resolved. He denies any fever or chills. He denies any joint pain. He denies any headaches or blurred vision. The constitutional, dermatologic, and neurological review of systems were negative unless otherwise stated in the history of present illness. The patient s past medical history, allergies, medication list, social history, and family medical history were documented, updated, and reviewed in the chart. There have been no changes since the last visit. OBJECTIVE BP 136/82 Pulse 66 Wt 75.3 kg (166 lb) BMI 25.24 kg/m Vitals: documented and reviewed in the chart. General: alert, cooperative, well appearing, in no apparent distress. CV: The heart sounds are regular in rate and rhythm. There is a normal S1 and S2. There or no murmurs, rubs, or gallops. Distal pulses are intact and equal. Lungs: Inspiratory and expiratory efforts are full and unlabored. Lung sounds are clear and equal to auscultation throughout all lung [place] without wheezing, rales, or rhonchi. Skin: The skin is without jaundice. It is intact without pathologic lesions, erythema, vesicles, discharge. On the dorsum of the left arm, there is a erythematous circular rash with central clearing with a another pinpoint central erythema area. It is not raised. There is no discharge. Extremities: There is no clubbing, cyanosis, or edema. 2+ peripheral pulses. ASSESSMENT / PLAN SNOMED CT(R) 1. Target rash ERUPTION amoxicillin (AMOXIL) 500 MG capsule We discussed the natural course and history of this problem. Rash on the left arm does appear to yanelis target type lesion. This could be secondary to potential tick bite. I would like to treat prophylactically for possible Lyme's disease. Patient is allergic to tetracyclines. We will start amoxicillin 500 mg 3 times a day for 21 days. We discussed the risks, benefits and side effects of medication. Patient understands and agrees. No orders of the defined types were placed in this encounter. Return if symptoms worsen or fail to improve. Julian Hobbs DO documented in this encounter* Hazel Ornelas PA-C - 04/17/2019 9:40 AM EDT Subjective: Patient ID: Tom Guzman is a 73 y.o. male. Chief Complaint: URI 73 yo male co fever (102 max) & cough X 9-10 days. He has tried OTC meds suggested by his PCP without relief. His symptoms are worse in the evening & night time. Past Medical History: Diagnosis Date Anxiety Depression Hyperlipidemia Seasonal allergies Past Surgical History: Procedure Laterality Date HERNIA REPAIR TONSILLECTOMY History reviewed. No pertinent family history. Review of Systems Constitutional: Positive for fever. HENT: Positive for congestion, postnasal drip and rhinorrhea. Eyes: Negative. Respiratory: Positive for cough. Negative for shortness of breath. Cardiovascular: Negative. Negative for chest pain. Gastrointestinal: Negative. Genitourinary: Negative. Musculoskeletal: Negative. Skin: Negative. Neurological: Negative. Objective: BP 127/79 (BP Location: Left arm, Patient Position: Sitting) Pulse 94 Temp 98.3 F (36.8 C) (Oral) Resp 16 Wt 75.3 kg (166 lb) SpO2 94% BMI 25.24 kg/m Physical Exam Vitals signs and nursing note reviewed. Constitutional: Appearance: He is well-developed. HENT: Head: Normocephalic and atraumatic. Right Ear: External ear normal. Left Ear: External ear normal. Nose: Nose normal. Eyes: Conjunctiva/sclera: Conjunctivae normal. Pupils: Pupils are equal, round, and reactive to light. Neck: Musculoskeletal: Normal range of motion and neck supple. Cardiovascular: Rate and Rhythm: Normal rate and regular rhythm. Heart sounds: Normal heart sounds. Pulmonary: Effort: Pulmonary effort is normal. Comments: Scattered rhonchi Musculoskeletal: Normal range of motion. Skin: General: Skin is warm and dry. Neurological: Mental Status: He is alert and oriented to person, place, and time. FINDINGS: The cardiomediastinal contour is within normal limits. Ill-defined reticular opacities at the lung base is suggestive of atelectasis. There is diffuse peribronchial wall thickening. No pleural effusion. No focal consolidative opacity. There is diffuse gaseous distention of the colonic loops. There is a colonic loop interposing in between the right hemidiaphragm and the liver. The visualized osseous structures demonstrate moderate compression deformity of L2 vertebral body, best seen on lateral view. There is also minimal wedge compression deformity of L3 vertebral body. IMPRESSION: Peribronchial wall thickening is nonspecific, likely related to viral or reactive airway disease. No focal consolidative opacity. Moderate wedge compression deformity of L2 vertebral body, age indeterminate. Recommend further evaluation with cross-sectional imaging. Mild diffuse gaseous distention of the colonic loops. Assessment: Lower respiratory tract infection Plan: Rx zithromax, tessalon, albuterol inhaler. Follow up with PCP in 7-10 days. I estimate there is LOW risk for ACUTE CORONARY SYNDROME, PULMONARY EMBOLISM, PNEUMONIA REQUIRING ADMISSION, AIRWAY COMPROMISE, SEPSIS OR MENINGITIS thus I consider the discharge disposition reasonable. Tom Guzman and I have discussed the diagnosis and risks, and we agree with discharging home with close follow- up. We have discussed the symptoms which are most concerning that necessitate immediate return. documented in this encounter* Julian Hobbs, DO - 08/03/2020 11:11 AM EST [facility] Patient Name: Tom Guzman Date: 08/03/20 Patient : 1945 Patient Age: 74 y.o. CC: No chief complaint on file. SUBJECTIVE Patient presents for pre-operative evaluation at the request of Dr. Ed Baker. Patient is undergoing ORIF for right distal radius fracture. The surgery is to take place on 08/07/20 at [facility]. The patient denies any chest pain, shortness of breath, syncope, near-syncope. Patient denies any symptoms consistent with sleep apnea. Patient is able to complete > 4 METs without complication. Patient denies any personal or family history of bleeding or clotting disorders. Patient denies any personal history of previous adverse reactions to anesthesia. Review of Systems: CONSTITUTIONAL: No weight loss, fever, chills, weakness or fatigue. HEENT: Eyes: No visual loss, blurred vision, double vision or yellow sclerae. Ears, Nose, Throat: No hearing loss, sneezing, congestion, runny nose or sore throat. SKIN: No rash or itching. CARDIOVASCULAR: No chest pain, chest pressure or chest discomfort. No palpitations or edema. RESPIRATORY: No shortness of breath, cough or sputum. GASTROINTESTINAL: No anorexia, nausea, vomiting or diarrhea. No abdominal pain or blood. GENITOURINARY: No dysuria, discharge or bleeding. NEUROLOGICAL: No headache, dizziness, syncope, paralysis, ataxia, numbness or tingling in the extremities. No change in bowel or bladder control. MUSCULOSKELETAL: No muscle, back pain, joint pain or stiffness. HEMATOLOGIC: No anemia, bleeding or bruising. LYMPHATICS: No enlarged nodes. No history of splenectomy. PSYCHIATRIC: No history of depression or anxiety. ENDOCRINOLOGIC: No reports of sweating, cold or heat intolerance. No polyuria or polydipsia. ALLERGIES: No history of asthma, hives, eczema or rhinitis. Past Medical History: Diagnosis Date Anxiety Depression Hyperlipidemia Seasonal allergies Past Surgical History: Procedure Laterality Date HERNIA REPAIR TONSILLECTOMY Current Outpatient Medications Medication Sig Dispense Refill atorvastatin (LIPITOR) 20 MG tablet Take 1 Unspecified by mouth daily . buPROPion (WELLBUTRIN) 75 MG tablet TAKE 2 TABLETS BY MOUTH TWICE A DAY 360 tablet 1 tuamoav-qitikvnfa-ydtv 333-133-8.3 mg Tab ferrous sulfate 325 (65 FE) MG tablet fexofenadine (Aller-Fex) 180 MG tablet glucosamine-chondroitin 500-400 mg tablet Take 1 tablet by mouth 3 (three) times a day . HYDROcodone-acetaminophen (NORCO) 5-325 mg per tablet Take 1 (one) tablet by mouth every 6 (six) hours as needed for pain (Days supply per fill: 3) . 12 tablet 0 ndpekycm-idjx-AI-calcium-mins 9 mg iron-400 mcg Tab Take 1 tablet by mouth daily . omega 5-wkd-caf-fish oil (FISH OIL) 1,000 mg (120 mg-180 mg) cap Take by mouth . senna (SENNA CONCENTRATE) 8.6 mg tablet Take 1 tablet by mouth 2 (two) times a day . triamcinolone (NASACORT) 55 mcg nasal inhaler 2 sprays by Each Nare route daily . naproxen (NAPROSYN) 500 MG tablet One po bid x 7 days, then one po bid as needed . (Patient not taking: Reported on 08/03/2020 .) 180 tablet 0 No current facility-administered medications for this visit. Allergies: Tetracycline and Vicodin [hydrocodone-acetaminophen] Social History Socioeconomic History Marital status: Spouse name: Not on file Number of children: Not on file Years of education: Not on file Highest education level: Not on file Occupational History Not on file Social Needs Financial resource strain: Not on file Food insecurity Worry: Not on file Inability: Not on file Transportation needs Medical: Not on file Non-medical: Not on file Tobacco Use Smoking status: Former Smoker Smokeless tobacco: Never Used Substance and Sexual Activity Alcohol use: Yes Comment: 1 drink per month Drug use: No Sexual activity: Not on file Lifestyle Physical activity Days per week: Not on file Minutes per session: Not on file Stress: Not on file Relationships Social connections Talks on phone: Not on file Gets together: Not on file Attends mandaeism service: Not on file Active member of club or organization: Not on file Attends meetings of clubs or organizations: Not on file Relationship status: Not on file Other Topics Concern Not on file Social History Narrative Not on file Family History Problem Relation Age of Onset No Known Problems Mother No lung problems No Known Problems Father OBJECTIVE Vital Signs: BP (!) 166/91 Pulse 74 Temp 97.4 F (36.3 C) Resp 16 General: Alert, cooperative, well appearing, in no apparent distress. Head: Head is symmetric, normocephalic without evidence of trauma or deformity. Eyes: Pupils are equally round and reactive to light with accommodation. The extra-ocular movementsare intact. The lids are without swelling, lesions, or drainage. The conjunctiva is clear and noninjected. ENT: The external auditory canals are without swelling or drainage. The tympanic membranes are intact, clear, and non-erythematous. The septum is midline. The sinuses are nontender to palpation. The nasal mucosa is pink without drainage. The tongue and mucous membranes are pink and moist without lesions. The dentition is generally in good health. The pharynx is non-erythematous without exudates. Neck: There is normal range of motion. The thyroid is normal size without nodules or masses. There is no lymphadenopathy. CV: The heart sounds are regular in rate and rhythm. There is a normal S1 and S2. There or no murmurs, rubs, or gallops. Distal pulses are intact and equal. Lungs: Inspiratory and expiratory efforts are full and unlabored. Lung sounds are clear and equal to auscultation throughout all lung [place] without wheezing, rales, or rhonchi. GI: The abdomen is soft and nontender. Bowel sounds are present in all 4 quadrants. There is no hepatosplenomegaly or other masses. There is no rebound or guarding. There is no CVA or suprapubic tenderness. Extremities: There is no clubbing, cyanosis, or edema. 2+ peripheral pulses. Neurological: Cranial nerves II-XII, cerebellar function and mental status are intact. There are noobvious focal sensory or motor deficits. DTR s are 2+/4 in the upper and lower extremity bilaterally. Strength is 5/5 in the upper and lower extremity bilaterally. Skin: The skin is without jaundice. It is intact without pathologic lesions, erythema, vesicles, discharge, or rash. ASSESSMENT / PLAN Problem List Items Addressed This Visit None Visit Diagnoses Preop examination - Primary Relevant Orders ECG 12 lead CBC and Differential Basic Metabolic Panel Oth intartic fracture of lower end of right radius, init Elevated blood pressure reading without diagnosis of hypertension This patient has no active cardiac conditions and would be considered at a low risk (less than 1%) for a major adverse cardiac event (MACE) based on a revised cardiac risk index (RCRI) score of 0. This patient has an activity level greater than 4 METS and would be considered at acceptable cardiac risk based on the 2014 [place] [employer]/[place] [employer] (ACC/AHA) guidelineson Perioperative Cardiovascular Evaluation and Management of Patients Undergoing Noncardiac Surgery. The patient is a low risk candidate undergoing moderate risk procedure. The patient is an acceptable candidate for this procedure. Patient will continue current medications. Patient will hold all NSAIDs one week prior to procedure. EKG done today showed normal sinus rhythm without evidence of ischemic changes. No further cardiac work-up is needed. We will get CBC and BMP prior to surgery, and pending these results, the patient will be cleared for this procedure. No follow-ups on file. Julian Hobbs DO CC: Ed Baker DO Note: To expedite correspondence, this note was generated by [employer] voice recognition software. Some grammatical or spelling errors may occur using the system. documented in this encounter* Emanuel Sanchez MD - 05/31/2019 10:15 AM EST CHIEF COMPLAINT: Chief Complaint Patient presents with Elevated PSA Erectile dysfunction HPI: Tom Guzman is a 73 y.o. male seen recently for his annual exam and PSA was noted to be elevated. No family history of prostate cancer. Patient has a hx of a shy bladder. Patient denies dysuria or hematuria. No history of stones. Primary Symptoms: Elevated PSA Onset/Duration: 1 months Aggravating Factors: none Alleviating Factors: none Pain: None Urinary: Reports having hesitancy to void with a crowd Started when he was 10 years old and was pulled out of the bathroom by his teacher PSA Level 3.54 ng/ml Also with ED Will lose his erection quickly Tried Cialis 5 mg with minimal response HISTORY: PMH: Past Medical History: Diagnosis Date Anxiety Depression Hyperlipidemia Seasonal allergies PSH Past Surgical History: Procedure Laterality Date HERNIA REPAIR TONSILLECTOMY SH Social History Socioeconomic History Marital status: Spouse name: Not on file Number of children: Not on file Years of education: Not on file Highest education level: Not on file Occupational History Not on file Social Needs Financial resource strain: Not on file Food insecurity Worry: Not on file Inability: Not on file Transportation needs Medical: Not on file Non-medical: Not on file Tobacco Use Smoking status: Former Smoker Smokeless tobacco: Never Used Substance and Sexual Activity Alcohol use: Yes Comment: 1 drink per month Drug use: No Sexual activity: Not on file Lifestyle Physical activity Days per week: Not on file Minutes per session: Not on file Stress: Not on file Relationships Social connections Talks on phone: Not on file Gets together: Not on file Attends mandaeism service: Not on file Active member of club or organization: Not on file Attends meetings of clubs or organizations: Not on file Relationship status: Not on file Other Topics Concern Not on file Social History Narrative Not on file FH Family History Problem Relation Age of Onset No Known Problems Mother No lung problems No Known Problems Father Allergies: Tetracycline MEDICATIONS: Guzman, Tom L Home Medication Instructions Prior to Surgery DAWN: Printed on:05/31/19 0697 Medication Information Take last dose on Take the morning of surgery Comment(s) atorvastatin (LIPITOR) 20 MG tablet Take 1 Unspecified by mouth daily . buPROPion (WELLBUTRIN) 75 MG tablet Take 2 75mg tablets BID . glucosamine-chondroitin 500-400 mg tablet Take 1 tablet by mouth 3 (three) times a day . uijphtni-usom-ZP-calcium-mins 9 mg iron-400 mcg Tab Take 1 tablet by mouth daily . naproxen (NAPROSYN) 500 MG tablet One po bid x 7 days, then one po bid as needed . omega 6-abk-fpg-fish oil (FISH OIL) 1,000 mg (120 mg-180 mg) cap Take by mouth . senna (SENNA CONCENTRATE) 8.6 mg tablet Take 1 tablet by mouth 2 (two) times a day . triamcinolone (NASACORT) 55 mcg nasal inhaler 2 sprays by Each Nare route daily . REVIEW OF SYSTEMS: GENERAL: No weight loss, malaise, fatigue. EYES: No change in vision or blurry vision. EARS, NOSE, MOUTH, THROAT: No changes in hearing. No difficulty swallowing. CARDIAC: No chest pain or heart palpitations. LUNGS: No difficulty breathing or wheezing. GI: No changes in bowel habit. No blood in his stool. : No dysuria, hematuria, or urinary tract infections. The rest as above in the HPI. MUSCULOSKELETAL: No joint pain or swelling. VASCULAR: No peripheral edema. No calf pain with exertion. NEURO: No changes in gait or sensation. SKIN: No rashes or lesions. PSYCH: No changes in mood or affect. PHYSICAL EXAM: CONSTITUTIONAL: Afebrile. Vital signs stable. Vitals: 05/31/19 1007 BP: 139/74 Pulse: 90 Resp: 17 SpO2: 95% Weight: 75.3 kg (166 lb) GENERAL: Well appearing. No acute distress. EYES: EOMI. PERRL. EARS, NOSE, MOUTH, THROAT: Mucous membranes moist, trachea midline CARDIAC: RRR, no murmurs LUNGS: No wheezing or difficulty breathing. WNL sounds ABDOMEN: Soft, nondistended, nontender. No CVA tenderness. RECTAL: Prostate enlarged 25 g with no nodules. Non-tender. 1+ bulge EXTREMITIES: No peripheral edema. No calf tenderness LYMPH NODES: No cervical, inguinal or other lymphadenopathy PSYCH: A & O x 3, mood and affect appropriate SKIN: No rashes, ulcers, or lesions visible ASSESSMENT / PLAN: Problem List Items Addressed This Visit Genitourinary Corporo-venous occlusive erectile dysfunction - Primary Other Elevated PSA Erectile dysfunction We discussed the differential diagnosis for the patient s elevated PSA and urinary symptoms. Differential includes: Prostate cancer, benign prostate enlargement, urinary obstruction, inflammation. Given the nature of his urinary symptoms, physical exam, and PSA levels, we offered to proceed with TRUS and prostate biopsy. We discussed risks, benefits and alternatives. Alternatives of repeat PSA, use of urinary biomarkers (PCA3, Select Mdx, and ExoDx), and recheck in3-4 months were also discussed. Given normal DANIEL and PSA <4.0 ng.ml will plan for recheck in 6 months. If PSA is rising he will consider prostate bx He wants to try sildenafil for his ED SE and how to take were discussed. .No orders of the defined types were placed in this encounter. Emanuel Sanchez MD, [facility] [phone] documented in this encounter* Jose Walton MA - 08/24/2020 2:28 PM EST Surgery Follow Up Patient Tom Guzman 08/24/20 Date of surgery: 08-07-20 Procedure: right distal radius ORIF Laterality: Right Cast/Splint/Brace/Immobilizer/Sling: Yes Doing Well: Yes 5' 8 74.4 kg (164 lb) Body mass index is 24.94 kg/m . Resp 16 Ht 5' 8 Wt 74.4 kg (164 lb) BMI 24.94 kg/m Pain: Yes, Pain Scale using 1 to 10 scale is rated a 2 Numbness/Tingling: Yes1st & 2nd digit Physical Therapy: No Pain Medications: Yes Refill Request: No Refill Due: No Jose Walton MA * Kelsey Smallwood CNS - 08/24/2020 2:15 PM EST [facility] [address] [facility] [id number] Chief Complaint Patient presents with Right Wrist - Post-op 08-07-20 right distal radius ORIF Tom Guzman returns to the office today for postoperative visit. They are 2 weeks postop. Procedure: ORIF right closed distal radius fracture Assessment: 1. Other closed intra-articular fracture of distal end of right radius with routine healing, subsequent encounter 2. S/P ORIF (open reduction internal fixation) fracture No orders of the defined types were placed in this encounter. BWC: no Occupation: Plan: They are to remain NWB. Will fit them with a removable splint today. Encourage being out of splint multiple times a day to work on range of motion. They are scheduled to start therapy. Continue NSAIDs and ice as needed. We will see them back in 6 weeks. Monitor paresthesias. Subjective: They are doing well. Pain: 2/ Pain Medication: Numbness/Tingling: median nerve distribution Therapy: No therapy Other symptoms/complaints: The patient denies fevers, chills sweats, chest pain, shortness of breath, nausea, vomiting, diarrhea or constipation. All other systems are negative other than stated in above HPI and ROS documented by MA in attached note, which I have personally reviewed from today's office visit. Ortho Exam: Right Wrist - Splint is on. Incision is clean, dry and intact. No signs of obvious infection. Neurovascular exam is grossly normal distally. Capillary refill < 3 sec. No skin breakdown. Range of motion is stiff as expected. Strength weak. No instability noted. Imaging: Xr Wrist Right 2 Views Result Date: 08/24/2020 X-Rays: 2 Views RIGHT Wrist were ordered and reviewed by me today: They demonstrate stable and satisfactory alignment. Fracture reduced. Hardware in acceptable position. No dislocation or subluxation. Stable ulnar styloid fracture Impression: stable and satisfactory postoperative appearance RIGHT di stal radius fracture status postop open reduction and internal fixation without evidence of hardware complication. Next Visit: repeat xrays Procedures Thank you for allowing me to participate in the care of your patient. If there is anything more I can do or offer for this patient or any other, please don't hesitate to call. Thank you. NICOLE Addison CC: No ref. provider found documented in this encounter* AnjelJulian rubin Marlon, DO - 05/18/2019 10:26 AM EST [facility] Patient Name: Tom Guzman Date: 05/18/19 Patient : 1945 Patient Age: 73 y.o. CC: Chief Complaint Patient presents with Follow-up SUBJECTIVE Patient presents to follow-up on medications. He is doing well on Wellbutrin. He needs a refill. Healso needs screening blood work again for hyperlipidemia. Patient states he feels well. Denies any chest pain or shortness of breath. Denies any SI or HI. Has no complaints at this time. He did get aflu shot this year already. The remaining constitutional, neurological, psychiatric, cardiovascular, respiratory system review of systems was negative unless otherwise noted. The patient s past medical history, allergies, medication list, social history, and family medical history were documented and reviewed in the chart. OBJECTIVE BP 116/73 Pulse 82 Resp 16 Wt 75.3 kg (166 lb) BMI 25.24 kg/m General: alert, cooperative, well appearing, in no apparent distress. Head: Head is symmetric, normocephalic without evidence of trauma or deformity. Eyes: Pupils are equally round and reactive to light with accommodation. The extra-ocular movementsare intact. The lids are without swelling, lesions, or drainage. The conjunctiva is clear and noninjected. ENT: The septum is midline. The maxillary and frontal sinuses are nontender to palpation. The nasalmucosa is pink with scant purulent drainage. The tongue and mucous membranes are pink and moist without lesions. The dentition is generally in good health. The pharynx is non-erythematous without exudates. CV: The heart sounds are regular in rate and rhythm. There is a normal S1 and S2. There or no murmurs, rubs, or gallops. Distal pulses are intact and equal. Lungs: Inspiratory and expiratory efforts are full and unlabored. Lung sounds are clear and equal to auscultation throughout all lung [place] without wheezing, rales, or rhonchi. Extremities: There is no clubbing, cyanosis, or edema. 2+ peripheral pulses. ASSESSMENT / PLAN 1. Anxiety - buPROPion (WELLBUTRIN) 75 MG tablet; Take 2 75mg tablets BID . Dispense: 360 tablet; Refill: 3 2. Need for hepatitis C screening test - Hepatitis C Antibody; Future 3. Hyperlipidemia, unspecified hyperlipidemia type - Lipid Panel; Future - Comprehensive metabolic panel; Future 4. Screening for malignant neoplasm of prostate - PSA, Screen; Future 5. Screening for AAA (abdominal aortic aneurysm) - Ultrasound abd aortic aneurysm screen; Future Depression Screening 05/18/2019 Little interest or pleasure in doing things 0 Feeling down, depressed, or hopeless 0 PHQ-2 Total Score 0 documented in this encounter* Jose Walton MA - 10/05/2020 10:21 AM EDT Surgery Follow Up Patient Tom Guzman 10/05/20 Date of surgery: 08-07-20 Procedure: R wrist ORIF Laterality: Right Cast/Splint/Brace/Immobilizer/Sling: No Doing Well: Yes 5' 8 74.4 kg (164 lb) Body mass index is 24.94 kg/m . Ht 5' 8 Wt 74.4 kg (164 lb) BMI 24.94 kg/m Pain: Yes, Pain Scale using 1 to 10 scale is rated a 1 Numbness/Tingling: Yes Physical Therapy: No Pain Medications: No Refill Request: No Refill Due: No Jose Walton MA * Kelsey Smallwood CNS - 10/05/2020 10:13 AM EDT [facility] [address] [place] [id number] Chief Complaint Patient presents with Right Wrist - Post-op 08-07-20 R wrist ORIF Tom Guzman returns to the office today for postoperative visit. They are 8 weeks postop. Procedure: ORIF right closed distal radius fracture Assessment: 1. Other closed intra-articular fracture of distal end of right radius with routine healing, subsequent encounter 2. S/P ORIF (open reduction internal fixation) fracture No orders of the defined types were placed in this encounter. BWC: no Occupation: Plan: They are to avoid axial loading. Can discontinue splint. They need to continue HEP. Continue NSAIDsand ice as needed. We will see them back in 4 weeks. Monitor paresthesias which are improving Subjective: They are doing well. Pain: /10 intermittently Pain Medication: acetaminophen and aleve PRN Numbness/Tingling: median nerve distribution - 3rd digit with clenched fist Therapy: Outpatient PT/OT completed, HEP Other symptoms/complaints: chronic wrist stiffness at baseline, some tenderness over the ulnar styloid The patient denies fevers, chills sweats, chest pain, shortness of breath, nausea, vomiting, diarrhea or constipation. All other systems are negative other than stated in above HPI and ROS documented by MA in attached note, which I have personally reviewed from today's office visit. Ortho Exam: Right Wrist - Incision is well healed and benign. No signs of obvious infection. Neurovascular examis grossly normal distally. Capillary refill < 3 sec. No skin breakdown. Range of motion is backto baseline per his report - chronic stiffness in wrist extension. Strength 5-/5. No instability noted. Imaging: Xr Wrist Right 2 Views Result Date: 10/05/2020 X-Rays: 2 Views RIGHT Wrist were ordered and reviewed by me today: They demonstrate stable and satisfactory alignment. Fracture reduced. Hardware in acceptable position. No dislocation or subluxation. Callus seen at fracture site. Fracture line still visible at the ulnar side of the distal radius. Stable appearance ulnar styloid fracture Impression: stable and satisfactory postoperative appearance RIGHT distal radius fracture status post open reduction and internal fixation without evidence of hardware complication. Next Visit: repeat xrays Procedures Thank you for allowing me to participate in the care of your patient. If there is anything more I can do or offer for this patient or any other, please don't hesitate to call. Thank you. NICOLE Addison CC: Julian Hobbs, * documented in this encounter* Julian Hobbs, DO - 10/13/2018 10:33 AM EDT [facility] Patient Name: Tom Guzman Date: 10/13/18 Patient : 1945 Patient Age: 72 y.o. CC: Chief Complaint Patient presents with Left Knee - Pain Ear Drainage possible impaction Medication Problem question about daily senna SUBJECTIVE: The patient presents complaining of intermittent left knee pain over the last few years. He states it has been at least 3 years. He denies any specific injury. He states occasionally if he is up walking around for longer periods of time, and will bother him for a day or so. He was in [place] this week and it was doing a lot of walking. He states this bothers him more than any other time. He states he only last about 24-48 hours and started getting better. He denied any locking, catching orswelling. He took some naproxen that we had given him previously and that seemed to help significantly. He is back to his baseline currently. He does have previous x-ray done by a previous primary care doctor on 05/14/18. This showed no significant findings except a remote MCL injury. The constitutional, musculoskeletal, neurological review of systems was negative unless otherwise noted. The patient s past medical history, allergies, medication list, social history, and family medical history were documented, updated, and reviewed in the chart. OBJECTIVE: Vitals: BP 122/64 Pulse 70 Wt 76.7 kg (169 lb) BMI 25.70 kg/m General: alert, cooperative, well appearing, in no apparent distress. Musculoskeletal: There is no obvious deformity. Gait is normal. There is normal active range of motion of all four extremities. Motor and sensory function is grossly intact. There are no focal deficits. Bilateral Knee: Inspection of the bilateral knee demonstrates there is no obvious deformity or effusion. The bilateral knee is stable without evidence of dislocation. There is normal flexion and extension of the bilateral knee. Assessment of ligamentous stability demonstrates the ACL/PCL/LCL/MCL are all intact. There is no pain with varus or valgus strain. Palpation of the bilateral knee demonstrates there is left knee medial joint line tenderness. There is tenderness at the proximal attachmentof the MCL on the femur. There is no pain with flexion circumduction testing. There is no pain along the tibial tuberosity or patellar tendon. There is no pain under the medial facet of the patella. T here is no pain with patellar subluxation, rocking, or grinding. The bilateral knee demonstrates normal muscle tone with 5/5 strength with flexion extension. There is no pain with resisted testing. Skin: The skin is without jaundice. It is intact without pathologic lesions, erythema, vesicles, discharge, or rash. Palpation of the skin is normal without induration, subcutaneous nodules, or tightening. Extremities: There is no clubbing, cyanosis, or edema. 2+ peripheral pulses.ASSESSMENT / PLAN: SNOMED CT(R) 1. Chronic pain of left knee KNEE PAIN 2. Sprain of medial collateral ligament of left knee, initial encounter SPRAIN OF MEDIAL COLLATERALLIGAMENT OF KNEE We discussed the natural course and history of this problem. I opted not to repeat x-rays. We have x-ray report from May 2018. I do not have the images available for review. I suspect based on age and pain location, he probably has some underlying arthritis, however it was not mentioned or seen on the x-ray report. There is x-ray report of previous calcification at the proximal attachment ofthe MCL. Likely had previous MCL injury. This may be a combination of both these issues. He will use the naproxen as needed during acute flareups. He will obtain a knee sleeve to use with activity. He will ice after activity and before bedtime. I will see him back as needed. No orders of the defined types were placed in this encounter. Return if symptoms worsen or fail to improve. Julian Hobbs DO Note: To expedite correspondence, this note was generated by [employer] voice recognition software. Some grammatical or spelling errors may occur using the system. in this encounter Assessments Diagnosis Orthostatic syncope- Primary Hyperlipidemia, unspecified hyperlipidemia type Strain of abdominal muscle, initial encounter Strain of lumbar region, initial encounter Anxiety Anxiety state, unspecified Diagnosis Target rash- Primary Rash and other nonspecific skin eruption Diagnosis Anxiety Anxiety state, unspecified Diagnosis Other closed intra-articular fracture of distal end of right radius, initial encounter- Primary Closed nondisplaced fracture of styloid process of right ulna, initial encounter Diagnosis Screening for AAA (abdominal aortic aneurysm) Screening for other and unspecified cardiovascular conditions Diagnosis Lower respiratory tract infection- Primary Other diseases of respiratory system, not elsewhere classified Diagnosis Preop examination- Primary Unspecified pre-operative examination Oth intartic fracture of lower end of right radius, init Elevated blood pressure reading without diagnosis of hypertension Diagnosis Other closed intra-articular fracture of distal end of right radius, initial encounter- Primary Closed fracture of right distal radius- Primary Other closed intra-articular fracture of distal end of right radius, initial encounter Diagnosis Closed fracture of right distal radius- Primary Other closed intra-articular fracture of distal end of right radius, initial encounter Acute postoperative pain of extremity Diagnosis Fracture Closed fracture of unspecified bone Diagnosis Elevated PSA Elevated prostate specific antigen (PSA) Corporo-venous occlusive erectile dysfunction Diagnosis Other closed intra-articular fracture of distal end of right radius with routine healing, subsequent encounter- Primary S/P ORIF (open reduction internal fixation) fracture Diagnosis Lower respiratory tract infection Other diseases of respiratory system, not elsewhere classified Diagnosis Anxiety- Primary Anxiety state, unspecified Need for hepatitis C screening test Special screening examination for other specified viral diseases Hyperlipidemia, unspecified hyperlipidemia type Screening for malignant neoplasm of prostate Screening for AAA (abdominal aortic aneurysm) Screening for other and unspecified cardiovascular conditions Diagnosis Chronic pain of left knee- Primary Sprain of medial collateral ligament of left knee, initial encounter Discharge Instructions * Attachments The following attachments cannot be sent through Care Everywhere. * Wrist Fracture (Romansh) documented in this encounter* Discharge Instr - AVS First Page* Kelsey Smallwood, [employer] - 08/07/2020 9:38 AM EST Upper Extremity Fracture Post-Op Instructions Your comfort and healing are very important to us, which is why we ask that you please follow theseinstructions carefully. These instructions are for your benefit in order to help minimize pain/swelling and insure proper healing. 1. Moderate pain is expected. Take your medications as directed and do not take more of your narcotic pain medication than prescribed. If you do not feel the medication is effective or if you experience side effects you can call and speak to someone in the office for possible change of medication. If you need a refill, please notify the office before you are out of medication. Wean off of the narcotic pain medication as soon as possible. We encouraging being off of the narcotic medications related to your postoperative recovery by 3-5 days after surgery and encourage transitioning to alternative pain management treatments such as ice and NSAIDs/tylenol unless directed otherwise. 2. Narcotic pain medications can cause upset stomach and constipation. Eating small meals every 2 hours can help with stomach upset. Using an dylg-ipt-zcropst laxative/stool softener is helpful with constipation. 3. You may take Advil/Ibuprofen/Aleve for additional pain control after 24 hours 4. Elevate surgical extremity above the level of the heart to alleviate pain and swelling of the fingers which can be normal after surgery. 5. You may experience some numbness and tingling in the hand which may continue for some time aftersurgery but is usually temporary. 6. Use ice as much as needed while awake for the first few days. If given an ice machine, do not place polar pad directly on skin, as this may cause freezing of the skin. You should also remove ice every 2 hours for the same reason. If diabetic, only use ice machine for 30 minutes at a time. 7. Keep dressing clean, dry, and intact. 8. Do NOT remove dressing. It will be removed at your first postop appointment. 9. Drink plenty of fluids and eat a well balanced diet. 10. You may drive once you are not taking any opioid pain medication and you feel safe driving. 11. You can begin therapy after your first follow up appointment. You can schedule your therapy to begin after that date. [facility] partners with [employer]. Their website is [employer]. You can go to an alternative physical therapy location if you would like. A therapy prescription hasbeen provided with your discharge papers. 12. Call surgeon immediately if any of the following occur: a) You injure your shoulder severely b) You develop a sustained fever of 101 F c) You notice redness or pus at the incision sites Additional Instructions: Please call the office to arrange a follow up appointment in [email or web address] days if you don't already have one scheduled. If you have any concerns or questions, please call your surgeon at [phone]. documented in this encounter Reason for Referral Status Reason Specialty Diagnoses / Procedures Referred By Contact Referred To Contact Pending Review Cardiology Diagnoses Screening for AAA (abdominal aortic aneurysm) Procedures Ultrasound abd aortic aneurysm screen Julian Hobbs DO [address] [place] [address] Status Reason Specialty Diagnoses / Procedures Referre d By Contact Referred To Contact Closed Cardiology Diagnoses Preop examination Procedures ECG 12 lead Julian Hobbs DO [address] [place] [address] Status Reason Specialty Diagnoses / Procedures Referred By Contact Referred To Contact Authorized Rehabilitation Diagnoses Other closed intra-articular fracture of distal end of right radius, initial encounter Acute postoperative pain of extremity Kelsey Smallwood, [employer] [address] [place] [address] Instructions * Patient Instructions* Hazel Ornelas PA-C - 04/17/2019 10:55 AM EDT Follow up with PCP in 7-10 days. Discussed over the counter medications for symptomatic management and side effects of medications. Recommended taking all medications with food and to stop medications if they develop any signs of anallergic reaction. Educated patient and/or guardian about signs and symptoms that would warrant further immediate evaluation. Recommended that they should return to urgent care, make an appointment with their family physician, or go to the emergency room if symptoms persist or get acutely worse. Recommended follow up within the next week with their PCP or to get established with a PCP soon in order to follow up appropriately. Bronchitis: Care Instructions Your Care Instructions Bronchitis is inflammation of the bronchial tubes, which carry air to the lungs. The tubes swell and produce mucus, or phlegm. The mucus and inflamed bronchial tubes make you cough. You may have trouble breathing. Most cases of bronchitis are caused by viruses like those that cause colds. Bronchitis usually develops rapidly and lasts about 2 to 3 weeks in otherwise healthy people. Follow-up care is a bustamante part of your treatment and safety. Be sure to make and go to all appointments, and call your doctor if you are having problems. It's also a good idea to know your test resultsand keep a list of the medicines you take. How can you care for yourself at home? Take all medicines exactly as prescribed. Call your doctor if you think you are having a problem with your medicine. Get some extra rest. Take an nurs-bcq-hntrkbs pain medicine, such as acetaminophen (Tylenol), ibuprofen (Advil, Motrin),or naproxen (Aleve) to reduce fever and relieve body aches. Read and follow all instructions on thelabel. Do not take two or more pain medicines at the same time unless the doctor told you to. Many pain medicines have acetaminophen, which is Tylenol. Too much acetaminophen (Tylenol) can be harmful. Take an pbsp-ikb-fovrzji cough medicine that contains dextromethorphan to help quiet a dry, hackingcough so that you can sleep. Avoid cough medicines that have more than one active ingredient. Read and follow all instructions on the label. Breathe moist air from a humidifier, hot shower, or sink filled with hot water. The heat and moisture will thin mucus so you can cough it out. Do not smoke. Smoking can make bronchitis worse. If you need help quitting, talk to your doctor about stop-smoking programs and medicines. These can increase your chances of quitting for good. When should you call for help? Call 911 anytime you think you may need emergency care. For example, call if: You have severe trouble breathing. Call your doctor now or seek immediate medical care if: You have new or worse trouble breathing. You cough up dark brown or bloody mucus (sputum). You have a new or higher fever. You have a new rash. Watch closely for changes in your health, and be sure to contact your doctor if: You cough more deeply or more often, especially if you notice more mucus or a change in the color of your mucus. You are not getting better as expected. Where can you learn more? Log into your personal health record on [email or web address] and enter H333 in the Education box to learn more about Bronchitis: Care Instructions. Current as of: March 11, 2018 Content Version: 12.1 5540-4377 [employer]. Care instructions adapted under license by your healthcare professional. If you have questions about a medical condition or this instruction, always ask your healthcare professional. [employer] disclaims any warranty or liability for your use of this information. documented in this encounter Additional Source Comments (unrecognized sect ion and content) No Status Records FoundNo Status Records FoundNo Status Records FoundNo Status Records FoundNo Status Records Found INFORMATION SOURCE (unrecogn ized section and content) DATE CREATED AUTHOR AUTHOR'S ORGANIZ ATION 04/22/2019 [facility] DATE CREATED AUTHOR AUTHOR'S ORGANIZ ATION 08/25/2020 [facility] DATE CREATED AUTHOR AUTHOR'S ORGANIZ ATION 11/14/2020 [facility] DATE CREATED AUTHOR AUTHOR'S ORGANIZ ATION 06/07/2021 [facility] latory Reason for Visit (unrecogniz ed section and content) Reason Comments Rash L wrist. Reason Comments Medication Refill Reason Comments Fall Wrist Pain Status Reason Specialty Diagnoses / Procedures Referred By Contact Referred To Contact Pending Review Cardiology Diagnoses Screening for AAA (abdominal aortic aneurysm) Procedures Ultrasound abd aortic aneurysm screen Julian Hobbs, [address] [place] [address] Reason Comments URI runny nose; cough; x 9 days; possibly in chest; no sore throat; mucinex w/o relief Status Reason Specialty Diagnoses / Procedures Referre d By Contact Referred To Contact Diagnoses Other closed intra-articular fracture of distal end of right radius, initial encounter Other closed intra-articular fracture of distal end of right radius, initial encounter [S52.571U] Procedures SC OPEN RX DISTAL RADIUS FX, INTRA-ARTICULAR, 3+ FRAG Ed Baker, DO [address] [place] [address] Reason Comments Elevated PSA Status Reason Specialty Diagnoses / Procedures Referre d By Contact Referred To Contact Closed Urology Diagnoses Elevated PSA Julian Hobbs, DO [address] [place] [address] Emanuel Sanchez MD [address] [place] [address] Reason Comments Post-op 2-1-21 right distal radius ORIF Reason Comments Follow-up Reason Comments Post-op 2-1-21 R wrist ORIF Reason Comments Ear Drainage possible impaction Medication Problem question about daily senna Pain Addendum Note - Julian Hobbs DO - 07/15/2018 10:59 AM ESTED Attestation Note - Diaz Treadwell DO - 07/31/2020 12:07 PM EST Miscellaneous Notes (unrecog nized section and content) Addended by: JULIAN HOBBS on: 07/15/2018 10:59 AM Modules accepted: Orders in this encounter ED Attestation: I was personally available for consult in the emergency department. I have reviewed the chart and agree with the documentation as recorded by the CLARE (Advanced Practice Provider), including the assessment, treatment plan, and disposition. documented in this encounter Brief Post Operative Note Patient Name: Tom Guzman : 1945 (74 y.o.) Date of Service: 08/07/2020 CSN: [id number] Procedure(s): RIGHT DISTAL RADIUS OPEN REDUCTION INERNAL FIXATION, Pre-Operative Diagnoses: * Other closed intra-articular fracture of distal end of right radius, initial encounter [S52.571A] Post-Operative Diagnoses: * Other closed intra-articular fracture of distal end of right radius, initial encounter [S52.571A] Surgeon(s) and Role: * Ed Baker, DO - Primary * Eagle Camacho Jr., DO - Resident - Assisting Anesthesiologist: Gary Lee DO ADULT SERVICES LIBRARIAN: Steve Marrero CRNA Waiter/Waitress Buffet: Cintia Vallejo RN Physician Icd 9 Coder: Kelsey Smallwood [facility] Scrub Person: ST Delmy Operative findings: right distal radius fracture, Intra and immediate post-operative complications: none Type of anesthesia used: General Estimated blood loss: 4 mL Estimated urine output: 0 mL Specimen(s): * No specimens in log * Implant(s): Implant Name Type Inv. Item Serial No. Wire Setter Lot No. LRB No. Used Action PLATE 2.4MM 6HL HEAD 3HL SHAFT DISTAL RADIUS RT - S. PLATE 2.4MM 6HL HEAD 3HL SHAFT DISTAL RADIUS RT . SYNTHES LT . Right 1 Implanted SCREW 2.7 X 16MM CORTEX SELF-TAP T8 STRDRV REC - S. SCREW 2.7 X 16MM CORTEX SELF-TAP T8 STRDRV REC . SYNTHES LT . Right 3 Implanted SCREW 2.7 X 14MM CORTEX SELF-TAP T8 STRDRV REC - S. SCREW 2.7 X 14MM CORTEX SELF-TAP T8 STRDRV REC . SYNTHES LT . Right 1 Implanted SCREW 2.4 X 20MM JANIE ANG LOCK STRDRV - S. SCREW 2.4 X 20MM JANIE ANG LOCK STRDRV . SYNTHES LT . Right 3 Implanted SCREW 2.4 X 16MM JANIE ANG LOCK STRDRV - S. SCREW 2.4 X 16MM JANIE ANG LOCK STRDRV . SYNTHES LT . Right 1 Implanted Drain(s): * No LDAs found * Wound(s): Wound 08/07/20 Surgical Wound Arm Lower Right (Active) Ed Baker DO 08/07/2020 11:25 AM Brief Post Operative Note Patient Name: Tom Guzman : 1945 (74 y.o.) Date of Service: 08/07/2020 CSN: [id number] Procedure(s): RIGHT DISTAL RADIUS OPEN REDUCTION INERNAL FIXATION, Pre-Operative Diagnoses: * Other closed intra-articular fracture of distal end of right radius, initial encounter [S52.571A] Post-Operative Diagnoses: * Other closed intra-articular fracture of distal end of right radius, initial encounter [S52.571A] Surgeon(s) and Role: * Ed Baker DO - Primary * Eagle Camacho Jr. DO - Resident - Assisting Anesthesiologist: Gary Lee DO ADULT SERVICES LIBRARIAN: Steve Marrero CRNA Waiter/Waitress Buffet: Cintia Vallejo RN Physician Icd 9 Coder: NICOLE Addison Scrub Person: ST Delmy Operative findings: ORIF right intra-articular distal radius fracture. Closure in layers. Volar splint applied Intra and immediate post-operative complications: none Type of anesthesia used: General Estimated blood loss: Minimal Estimated urine output: 0 mL Specimen(s): * No specimens in log * Implant(s): Implant Name Type Inv. Item Serial No. Wire Setter Lot No. LRB No. Used Action PLATE 2.4MM 6HL HEAD 3HL SHAFT DISTAL RADIUS RT - S. PLATE 2.4MM 6HL HEAD 3HL SHAFT DISTAL RADIUS RT . SYN[employer]ES LT . Right 1 Implanted SCREW 2.7 X 16MM CORTEX SELF-TAP T8 STRDRV REC - S. SCREW 2.7 X 16MM CORTEX SELF-TAP T8 STRDRV REC . SYNTHES LT . Right 3 Implanted SCREW 2.7 X 14MM CORTEX SELF-TAP T8 STRDRV REC - S. SCREW 2.7 X 14MM CORTEX SELF-TAP T8 STRDRV REC . SYNTHES LT . Right 1 Implanted SCREW 2.4 X 20MM JANIE ANG LOCK STRDRV - S. SCREW 2.4 X 20MM JANIE ANG LOCK STRDRV . SYNTHES LT . Right 3 Implanted SCREW 2.4 X 16MM JANIE ANG LOCK STRDRV - S. SCREW 2.4 X 16MM JANIE ANG LOCK STRDRV . SYNTHES LT . Right 1 Implanted Drain(s): * No LDAs found * Wound(s): Wound 08/07/20 Surgical Wound Arm Lower Right (Active) Eagle Camacho Jr., DO 08/07/2020 10:51 AM OPERATIVE REPORT Tom Guzman Preoperative Diagnosis: Right distal radius fracture Postoperative Diagnosis: Same Procedure: Open reduction and internal fixation of 3-part intra-articular (CPT # 04065) right distal radius fracture Surgeon:Ed Baker Icd 9 Coder: Surgeon(s) and Role: * Ed Baker, - Primary * Eagle Camacho Jr., DO - Resident - Assisting OR Staff: Waiter/Waitress Buffet: Cintia Vallejo RN Physician Icd 9 Coder: Kelsey Smallwood [employer] Scrub Person: ST Delmy Anesthesiologist: No responsible provider has been recorded for the case. Implants: Implant Name Type Inv. Item Serial No. Wire Setter Lot No. LRB No. Used Action PLATE 2.4MM 6HL HEAD 3HL SHAFT DISTAL RADIUS RT - S. PLATE 2.4MM 6HL HEAD 3HL SHAFT DISTAL RADIUS RT . SYNTHES LT . Right 1 Implanted SCREW 2.7 X 16MM CORTEX SELF-TAP T8 STRDRV REC - S. SCREW 2.7 X 16MM CORTEX SELF-TAP T8 STRDRV REC . SYNTHES LT . Right 3 Implanted SCREW 2.7 X 14MM CORTEX SELF-TAP T8 STRDRV REC - S. SCREW 2.7 X 14MM CORTEX SELF-TAP T8 STRDRV REC . SYNTHES LT . Right 1 Implanted SCREW 2.4 X 20MM JANIE ANG LOCK STRDRV - S. SCREW 2.4 X 20MM JANIE ANG LOCK STRDRV . SYNTHES LT . Right 3 Implanted SCREW 2.4 X 16MM JANIE ANG LOCK STRDRV - S. SCREW 2.4 X 16MM JANIE ANG LOCK STRDRV . SYNTHES LT . Right 1 Implanted EBL: See anesthesia note Complications: None Dispostion: To PACU, stable Indications: Tom Guzman is a 74 y.o. male presenting with the aforementioned injuries. The procedure is indicated to obtain and maintain stability of the wrist and allow early ROM. The patient is awake and alert. After thorough discussion of the risks, benefits, expected outcomes, and alternatives to surgical intervention, the patient agreed to proceed with surgical treatment. Specific risks discussed included, but were not limited to: superficial or deep infection, wound healing complications, DVT/PE, significant bleeding requiring transfusion, damage to named anatomic structures in the immediate area including named neurovascular structures, carpal tunnel syndrome, implant failure, and general risks of anesthesia. The patient voiced understanding and written as well as verbal consent was obtained by myself prior to the procedure. Procedure Note: The patient was brought back to the OR and placed supine on the OR table. After successful induction of anesthesia by anesthesia staff, the patient was positioned in the supine position and all bony prominences were padded appropriately. The surgical field was then provisionally cleansed and then prepped and draped in the usual sterile fashion. At this time a time-out was performed, with the correct patient, site, and procedure identified. The universal time out as well as sign your site protocols were followed. Preoperative antibiotics were verified as administered. A standard volar FCR-based approach was utilized and attention to hemostasis was paid using electrocautery. The FCR sheath was incised and the FCR retracted ulnarly. The FCR subsheath was incised and the FPL swept ulnarly. The pronator quadratus was seen and elevated radially and distally. The fracture site was easily identified and the fracture was reduced. We did pin the radius provisionally. We placed the distal radius plate into position. The plate was fixed in the oblong hole initially and then adjusted from proximal-distal positioning. The plate was then fixed distally with locking screws. The proximal aspect of the plate was then fixed to bone. Final C-arm images were obtained and saved to the [employer] system. The 3-part intra-articular fracture was reduced and held nicely. No additional implants were needed for stabilization of the distal radius. The incisions were then irrigated using copious sterile saline and then closed in layered fashion. The surgical sites were infiltrated using local anesthetic, and the extremity was sterilely cleansed and dressed. The patient was then subsequently extubated and transferred to to PACU in a stable condition. All sponge and needle counts were correct at the end of the case. I was present and participated in all aspects of the procedure. Prognosis: We will keep the patient NWB for now in a short arm splint. The patient can do ROM of the fingers and elbow as tolerated. Ed Baker documented in this encounter Judy Atkinson RN - 07/31/2020 12:23 PM Shireen Dia PA- C - 07/31/2020 11:07 AM Judy Bowers RN - 07/31/2020 10:13 AM EST ED Notes (unrecognized secti on and content) Lidocaine given to ortho for procedure [facility] EMERGENCY DEPARTMENT CLARE Note: NAME: Tom Guzman 74 y.o. CSN: [id number] PCP: Julian Hobbs DO History: Chief Complaint: Fall and Wrist Pain HPI: The history was obtained from the patient. Tom is a 74 y.o. male who presents with a chief complaint of Fall and Wrist Pain. Patient is complaining of right wrist pain after mechanical fall slipping on ice last night. States that he landed with outstretched right hand and his right hip. States that he has been able to weight bear weight on his right lower extremity without difficulty or significant pain since the fall occurred. Reports that he has not been able to mobilize his right wrist or fully extend his right hand digits or make a fist with his right hand. For he has been wearing a shoulder sling at home without much relief. Patient is right-hand dominant. States that he took Aleve last night for his pain. He denies head injury, loss of consciousness, blood thinner use, numbness, tingling, weakness. Denies headache, right shoulder or elbow pain, chest pain, shortness of breath, lightheadedness, abdominal pain, nausea, vomiting, or other complaints at this time. PMHx: Past Medical History: Diagnosis Date Anxiety Depression Hyperlipidemia Seasonal allergies PMSx: Past Surgical History: Procedure Laterality Date HERNIA REPAIR TONSILLECTOMY FAM. Hx: Family History Problem Relation Age of Onset No Known Problems Mother No lung problems No Known Problems Father SOC. Hx: Social History Socioeconomic History Marital status: Spouse name: Not on file Number of children: Not on file Years of education: Not on file Highest education level: Not on file Occupational History Not on file Social Needs Financial resource strain: Not on file Food insecurity Worry: Not on file Inability: Not on file Transportation needs Medical: Not on file Non-medical: Not on file Tobacco Use Smoking status: Former Smoker Smokeless tobacco: Never Used Substance and Sexual Activity Alcohol use: Yes Comment: 1 drink per month Drug use: No Sexual activity: Not on file Lifestyle Physical activity Days per week: Not on file Minutes per session: Not on file Stress: Not on file Relationships Social connections Talks on phone: Not on file Gets together: Not on file Attends mandaeism service: Not on file Active member of club or organization: Not on file Attends meetings of clubs or organizations: Not on file Relationship status: Not on file Other Topics Concern Not on file Social History Narrative Not on file MEDs: Previous Medications Medication Sig atorvastatin (LIPITOR) 20 MG tablet Take 1 Unspecified by mouth daily . buPROPion (WELLBUTRIN) 75 MG tablet TAKE 2 TABLETS BY MOUTH TWICE A DAY glucosamine-chondroitin 500-400 mg tablet Take 1 tablet by mouth 3 (three) times a day . qgxgaryz-dpee-GC-calcium-mins 9 mg iron-400 mcg Tab Take 1 tablet by mouth daily . naproxen (NAPROSYN) 500 MG tablet One po bid x 7 days, then one po bid as needed . omega 4-ypg-pdg-fish oil (FISH OIL) 1,000 mg (120 mg-180 mg) cap Take by mouth . senna (SENNA CONCENTRATE) 8.6 mg tablet Take 1 tablet by mouth 2 (two) times a day . triamcinolone (NASACORT) 55 mcg nasal inhaler 2 sprays by Each Nare route daily . [DISCONTINUED] buPROPion (WELLBUTRIN) 75 MG tablet TAKE 2 TABLETS BY MOUTH TWICE A DAY . ALL: Allergies Allergen Reactions Tetracycline ROS: Review of Systems Positives and pertinent negatives as per HPI. All other systems were reviewed and are negative. Physical Exam: Patient Vitals for the past 24 hrs: BP Temp Temp src Pulse Resp SpO2 Height Weight 07/31/20 1007 (!) 177/84 98.8 F (37.1 C) Oral 86 14 95 % 5' 8 74.8 kg (165 lb) Physical Exam Vitals signs and nursing note reviewed. Constitutional: General: He is not in acute distress. Appearance: Normal appearance. He is well-developed. He is not toxic-appearing. HENT: Head: Normocephalic and atraumatic. Right Ear: External ear normal. Left Ear: External ear normal. Nose: Nose normal. Mouth/Throat: Lips: Frederica. Eyes: Extraocular Movements: Extraocular movements intact. Conjunctiva/sclera: Conjunctivae normal. Neck: Musculoskeletal: Normal range of motion and neck supple. Cardiovascular: Rate and Rhythm: Normal rate. Pulses: Normal pulses. Comments: Bilateral radial pulses 2+ and equal. Pulmonary: Effort: Pulmonary effort is normal. No respiratory distress. Musculoskeletal: Right wrist: He exhibits decreased range of motion, bony tenderness and swelling (Swelling noted to posterior right wrist, most prominent over distal right radius and some mild swelling to right ulna.). He exhibits no laceration. Right hand: He exhibits decreased range of motion (Unable to make a fist or fully extend right hand digits secondary to wrist pain.) and bony tenderness (He does have slight right snuffbox tenderness.). He exhibits normal capillary refill, no deformity and no laceration. Normal sensation noted. Decreased strength noted. He exhibits wrist extension trouble. He exhibits no finger abduction and no thumb/finger opposition. Comments: Right upper extremity compartments soft and easily compressible. Skin: General: Skin is warm and dry. Capillary Refill: Capillary refill takes less than 2 seconds. Neurological: Mental Status: He is alert and oriented to person, place, and time. Psychiatric: Mood and Affect: Mood normal. Behavior: Behavior normal. Laboratory & Radiological Imaging (if done): Labs Reviewed - No data to display XR Wrist Right 3+ Views (Standard) Final Result 1. Comminuted intra-articular fracture of the distal radius. 2. Fracture of the ulnar styloid. Workstation ID: [id number] XR Wrist Right 3+ Views (Standard) (Results Pending) Procedures: PROCEDURE: splint application & evaluation Because of the condition described above in the chart, I decided it would be best for his injury to be immobilized. A long splint was placed on the right arm by the ortho resident, using orthoglass and amador wrap, under my supervision. After application, I evaluated the extremity and deemed it to be satisfactorily immobilized. In addition, his distal neurological and vascular examination was unchanged, and without evidence of compartment syndrome. He tolerated the procedure well. ED course MDM Patient was seen in ED for fall and right wrist pain. Patient had no significant vital sign abnormalities. On exam, patient had obvious swelling and deformity to distal radial aspect of right wrist. No breaks in skin. Patient right hand neurovascularly intact. X-ray right wrist showed comminuted intra-articular fracture of distal radius as well as nondisplaced ulnar styloid fracture. The public transit specialist was consulted who promptly came and evaluated patient. Patient was placed in a long- arm splint utilizing Ortho-Glass. He will be given short course of [place] for breakthrough pain. Strict return precautions regarding this emergency department visit were discussed. Patient agrees with plan for discharge home, to take medications as directed, and to follow up with Dr. Roche. The patient was advised of the risks and benefits of opioid medications, including the potential for addiction. Provider note: Dr Treadwell was available for immediate consultation throughout the duration of this patient's visit. Clinical Impression: 1. Other closed intra-articular fracture of distal end of right radius, initial encounter 2. Closed nondisplaced fracture of styloid process of right ulna, initial encounter Disposition: Patient discharged home in stable condition New Prescriptions HYDROcodone-acetaminophen (NORCO) 5-325 mg per tablet Take 1 (one) tablet by mouth every 6 (six) hours as needed for pain (Days supply per fill: 3) . Shireen Mariano PA-C ED Advanced Practice Provider [facility] EMERGENCY DEPARTMENT (Please note that portions of this note have been completed with a voice recognition software. Efforts were made to correct any errors, but occasionally words are mis-transcribed.) Shireen Mariano PA-C 07/31/20 1356 Pt states he took aleve last night and is okay now, denies any tylenol or ibuprofen at this time, will wait for physician. Pt arrives to ED with c/o right wrist pain after falling on the ice last night. Pt states he thought he would feel better but feels worse this morning. Pt states he was falling and caught his fall with his right hand. Pt presents with PMS intact and wearing an arm splint from home. Pt skin is warm and dry, some swelling noted. Pt able to grasp this RN's fingers with pain. documented in this encounter Ed Baker, - 08/07/2020 8:55 AM Julian Colvin, - 08/03/2020 11:11 AM EST H&P Notes (unrecognized sect ion and content) INTERVAL HISTORY AND PHYSICAL Patient Name: Tom Guzman Admit Date: 2000807 MR #: [id number] : 1945 The H&P has been reviewed and the patient has been examined. I concur with the findings of the H&P. There are no significant changes. It is appropriate to proceed with the planned procedure. Ed Baker DO 08/07/2020 8:55 AM [facility] Patient Name: Tom Guzman Date: 08/03/20 Patient : 1945 Patient Age: 74 y.o. CC: No chief complaint on file. SUBJECTIVE Patient presents for pre-operative evaluation at the request of Dr. Ed Baker. Patient is undergoing ORIF for right distal radius fracture. The surgery is to take place on 08/07/20 at [facility]. The patient denies any chest pain, shortness of breath, syncope, near-syncope. Patient denies any symptoms consistent with sleep apnea. Patient is able to complete > 4 METs without complication. Patient denies any personal or family history of bleeding or clotting disorders. Patient denies any personal history of previous adverse reactions to anesthesia. Review of Systems: CONSTITUTIONAL: No weight loss, fever, chills, weakness or fatigue. HEENT: Eyes: No visual loss, blurred vision, double vision or yellow sclerae. Ears, Nose, Throat: No hearing loss, sneezing, congestion, runny nose or sore throat. SKIN: No rash or itching. CARDIOVASCULAR: No chest pain, chest pressure or chest discomfort. No palpitations or edema. RESPIRATORY: No shortness of breath, cough or sputum. GASTROINTESTINAL: No anorexia, nausea, vomiting or diarrhea. No abdominal pain or blood. GENITOURINARY: No dysuria, discharge or bleeding. NEUROLOGICAL: No headache, dizziness, syncope, paralysis, ataxia, numbness or tingling in the extremities. No change in bowel or bladder control. MUSCULOSKELETAL: No muscle, back pain, joint pain or stiffness. HEMATOLOGIC: No anemia, bleeding or bruising. LYMPHATICS: No enlarged nodes. No history of splenectomy. PSYCHIATRIC: No history of depression or anxiety. ENDOCRINOLOGIC: No reports of sweating, cold or heat intolerance. No polyuria or polydipsia. ALLERGIES: No history of asthma, hives, eczema or rhinitis. Past Medical History: Diagnosis Date Anxiety Depression Hyperlipidemia Seasonal allergies Past Surgical History: Procedure Laterality Date HERNIA REPAIR TONSILLECTOMY Current Outpatient Medications Medication Sig Dispense Refill atorvastatin (LIPITOR) 20 MG tablet Take 1 Unspecified by mouth daily . buPROPion (WELLBUTRIN) 75 MG tablet TAKE 2 TABLETS BY MOUTH TWICE A DAY 360 tablet 1 jgkczsy-cbrfroldu-nuxv 333-133-8.3 mg Tab ferrous sulfate 325 (65 FE) MG tablet fexofenadine (Aller-Fex) 180 MG tablet glucosamine-chondroitin 500-400 mg tablet Take 1 tablet by mouth 3 (three) times a day . HYDROcodone-acetaminophen (NORCO) 5-325 mg per tablet Take 1 (one) tablet by mouth every 6 (six) hours as needed for pain (Days supply per fill: 3) . 12 tablet 0 xmntqvvf-zdww-XE-calcium-mins 9 mg iron-400 mcg Tab Take 1 tablet by mouth daily . omega 1-awt-sua-fish oil (FISH OIL) 1,000 mg (120 mg-180 mg) cap Take by mouth . senna (SENNA CONCENTRATE) 8.6 mg tablet Take 1 tablet by mouth 2 (two) times a day . triamcinolone (NASACORT) 55 mcg nasal inhaler 2 sprays by Each Nare route daily . naproxen (NAPROSYN) 500 MG tablet One po bid x 7 days, then one po bid as needed . (Patient not taking: Reported on 08/03/2020 .) 180 tablet 0 No current facility-administered medications for this visit. Allergies: Tetracycline and Vicodin [hydrocodone-acetaminophen] Social History Socioeconomic History Marital status: Spouse name: Not on file Number of children: Not on file Years of education: Not on file Highest education level: Not on file Occupational History Not on file Social Needs Financial resource strain: Not on file Food insecurity Worry: Not on file Inability: Not on file Transportation needs Medical: Not on file Non-medical: Not on file Tobacco Use Smoking status: Former Smoker Smokeless tobacco: Never Used Substance and Sexual Activity Alcohol use: Yes Comment: 1 drink per month Drug use: No Sexual activity: Not on file Lifestyle Physical activity Days per week: Not on file Minutes per session: Not on file Stress: Not on file Relationships Social connections Talks on phone: Not on file Gets together: Not on file Attends mandaeism service: Not on file Active member of club or organization: Not on file Attends meetings of clubs or organizations: Not on file Relationship status: Not on file Other Topics Concern Not on file Social History Narrative Not on file Family History Problem Relation Age of Onset No Known Problems Mother No lung problems No Known Problems Father OBJECTIVE Vital Signs: BP (!) 166/91 Pulse 74 Temp 97.4 F (36.3 C) Resp 16 General: Alert, cooperative, well appearing, in no apparent distress. Head: Head is symmetric, normocephalic without evidence of trauma or deformity. Eyes: Pupils are equally round and reactive to light with accommodation. The extra-ocular movements are intact. The lids are without swelling, lesions, or drainage. The conjunctiva is clear and noninjected. ENT: The external auditory canals are without swelling or drainage. The tympanic membranes are intact, clear, and non-erythematous. The septum is midline. The sinuses are nontender to palpation. The nasal mucosa is pink without drainage. The tongue and mucous membranes are pink and moist without lesions. The dentition is generally in good health. The pharynx is non-erythematous without exudates. Neck: There is normal range of motion. The thyroid is normal size without nodules or masses. There is no lymphadenopathy. CV: The heart sounds are regular in rate and rhythm. There is a normal S1 and S2. There or no murmurs, rubs, or gallops. Distal pulses are intact and equal. Lungs: Inspiratory and expiratory efforts are full and unlabored. Lung sounds are clear and equal to auscultation throughout all lung [place] without wheezing, rales, or rhonchi. GI: The abdomen is soft and nontender. Bowel sounds are present in all 4 quadrants. There is no hepatosplenomegaly or other masses. There is no rebound or guarding. There is no CVA or suprapubic tenderness. Extremities: There is no clubbing, cyanosis, or edema. 2+ peripheral pulses. Neurological: Cranial nerves II-XII, cerebellar function and mental status are intact. There are no obvious focal sensory or motor deficits. DTR s are 2+/4 in the upper and lower extremity bilaterally. Strength is 5/5 in the upper and lower extremity bilaterally. Skin: The skin is without jaundice. It is intact without pathologic lesions, erythema, vesicles, discharge, or rash. ASSESSMENT / PLAN Problem List Items Addressed This Visit None Visit Diagnoses Preop examination - Primary Relevant Orders ECG 12 lead CBC and Differential Basic Metabolic Panel Oth intartic fracture of lower end of right radius, init Elevated blood pressure reading without diagnosis of hypertension This patient has no active cardiac conditions and would be considered at a low risk (less than 1%) for a major adverse cardiac event (MACE) based on a revised cardiac risk index (RCRI) score of 0. This patient has an activity level greater than 4 METS and would be considered at acceptable cardiac risk based on the 2014 [place] [employer]/[place] [employer] (ACC/AHA) guidelines on Perioperative Cardiovascular Evaluation and Management of Patients Undergoing Noncardiac Surgery. The patient is a low risk candidate undergoing moderate risk procedure. The patient is an acceptable candidate for this procedure. Patient will continue current medications. Patient will hold all NSAIDs one week prior to procedure. EKG done today showed normal sinus rhythm without evidence of ischemic changes. No further cardiac work-up is needed. We will get CBC and BMP prior to surgery, and pending these results, the patient will be cleared for this procedure. No follow-ups on file. Julian Hobbs DO CC: Ed Baker DO Note: To expedite correspondence, this note was generated by [employer] recognition software. Some grammatical or spelling errors may occur using the system. documented in this encounter Care Teams (unrecognized sec tion and content) Centrifugal Chiller Technician Relationship Specialty Start Date End Date Julian Hobbs DO [address] [place] [address] PCP - General Sports Medicine 07/09/18 Centrifugal Chiller Technician Relationship Specialty Start Date End Date Julian Hobbs DO [address] [place] [address] PCP - General Sports Medicine 07/09/18 12/04/22 Saad Kelley MD [address] [place] [address] PCP - General Endocrinology/Metabolism 12/05/22 FOR RECORDS PERTAINING TO PATIENTS WHO ARE OR HAVE BEEN ENROLLED IN A CHEMICAL DEPENDENCY/SUBSTANCEABUSE PROGRAM, SOME INFORMATION MAY BE OMITTED. This clinical summary was aggregated from multiple sources. Caution should be exercised in using it in the provision of clinical care. This summary normalizes information from multiple sources, and as a consequence, information in this document may materially change the coding, format and clinical context of patient data. In addition, data may be omitted in some cases. CLINICAL DECISIONS SHOULD BE BASED ON THE PRIMARY CLINICAL RECORDS. [facility]. provides no warranty or guarantee of the accuracy or completeness of information in this document.
[2023-08-29 10:25] LABS: Bacteria 0 SEEN /hpf (None Seen); Mucous, Urine 0 SEEN /hpf (<or=2+); Red Blood Cells-Urine 0 SEEN /hpf (0-5); Squamous Epithelial Cells - UA 0 SEEN /hpf (0-5); White Blood Cells 0 SEEN /hpf (0-5)
[2023-08-29 10:32] LABS: Color, Urine Yellow (Yellow); Glucose, Dipstick Normal (Normal); Ketone-Dipstick Negative (Negative); Leukocyte Esterase-Dipstick Negative /ul (Negative); Nitrite-Dipstick Negative (Negative); Occult Blood-Urine Negative /ul (Negative); Protein-Dipstick Negative (Negative); Specific Gravity, Urine 1.005 (1.002-1.030); Urine Bilirubin Dipstick Negative (Negative); Urine Clarity Clear (Clear); Urine Urobilinogen Normal (Normal)
[2023-08-29 13:00] VITALS: PULSE 74; RESP 16; O2SAT 98
[2023-08-29] MEDS: Electrolyte Solution/Peg's 4000 ML 1000 ML PO (13:23)
[2023-08-29 13:38] VITALS: BP 108/74; PULSE 80; RESP 14; TEMP 36.6; O2SAT 98
== END 2023-08-29 13:40 | disposition home or self-care (01) ==
PROVIDERS: Emergency Provider Emergency Medicine; PCP Family Medicine; Visit Provider Emergency Medicine
DX: R10.9 Unspecified abdominal pain (principal); K59.00 Constipation, unspecified; Z87.891 Personal history of nicotine dependence; E78.5 Hyperlipidemia, unspecified; K86.89 Other specified diseases of pancreas; N28.1 Cyst of kidney, acquired; N40.0 Benign prostatic hyperplasia without lower urinary tract symptoms
CPT/HCPCS: 74177; 80053; 81001; 82150; 83690; 85025; 99283; Q9967; A4216

== ENCOUNTER → 2023-10-30 | Outpatient (CLI) | payer MEDICARE, SELFPAY ==
[2023-10-30 10:30] LABS: PSA,Total- Diagnostic 4.74 ng/mL (0.0-4.0)
== END | disposition home or self-care (01) ==
LOC: LAB 09:10
PROVIDERS: PCP Family Medicine; Visit Provider Urology
DX: R97.20 Elevated prostate specific antigen [PSA] (principal)
CPT/HCPCS: 36415; 84153

== ENCOUNTER → 2023-11-06 | Outpatient (CLI) | payer MEDICARE, SELFPAY ==
--- NOTE | 2023-11-06 15:03 | RAD_ITS ---
STUDY: X-RAY - LEFT ELBOW REASON FOR EXAM: Male, 77 years old. Left elbow pain. TECHNIQUE: 3 view(s) of the elbow. COMPARISON: None. FINDINGS: Osteopenia. Normal visualized humerus, radius and ulna. Normal radiocapitellar and ulnotrochlear articulations. The soft tissue structures are normal. RAD/Elbow min 3 Views IMPRESSION: Osteopenia. Normal x-ray examination of the elbow. Electronically Signed: Chad Das MD at 15:22 EDT ,
[2023-11-06 17:00] LABS: Vitamin D,25 Hydroxy 49.2 ng/mL
[2023-11-06 17:02] LABS: Anion Gap 4 (5-15); BUN 17 mg/dL (7-18); BUN/Creat Ratio 15.2 RATIO (10-20); Calcium,Total 9.1 mg/dL (8.5-10.1); Chloride 107 mmol/L (98-107); Creatinine, Serum 1.12 mg/dL (0.70-1.30); EST Glomerular Filtration Rate 68 mL/min (>60); Est Glom Filt Rate - Afr Amer 82 mL/min (>60); Glucose 162 mg/dL (74-106); Potassium 4.3 mmol/L (3.5-5.1); Sodium Level 138 mmol/L (136-145)
[2023-11-06 17:03] LABS: Hemoglobin A1c 5.6 % (3.8-5.6)
== END | disposition home or self-care (01) ==
PROVIDERS: PCP Internal Medicine; Referring Provider Internal Medicine; Visit Provider Internal Medicine
DX: R73.03 Prediabetes (principal); M81.0 Age-related osteoporosis without current pathological fracture; M25.522 Pain in left elbow
CPT/HCPCS: 36415; 73080; 80048; 82306; 83036

== ENCOUNTER → 2023-12-24 | Outpatient (CLI) | payer MEDICARE, SELFPAY ==
--- NOTE | 2023-12-24 16:23 | STRESSREP_ITS ---
Stress Test Report Exercise myocardial perfusion stress test. 78-year-old male with a history of chest pain Stress protocol: Resting EKG demonstrates normal sinus rhythm with a rate of 80 bpm resting blood pressure is 152/82 mmHg. occasional premature ventricular complexes present. The patient exercised according to the regular [place] protocol for a total dur ation of 5 minutes attaining a maximum heart rate of 125 bpm which was 87% of maximum predicted heart rate; the maximum workload was 7 metabolic equivalents. At rest there were no ST or T wave changes noted to suggest ischemia and at peak exercise upsloping ST changes only were noted which did not meet the criteria for ischemia. No clinical angina was noted the test was terminated due to the target heart rate being achieved/fatigue. The peak blood pressure was 152/82 mmHg. Rate-pressure product was 13,700. Myocardial perfusion protocol. 11.8 mCi of technetium 99m sestamibi was injected at rest. The patient exercised according to regular [place] protocol for total duration of 5 minutes and at peak exercise 34.2 mCi of technetium 99m sestamibi was injected stress images were obtained stress and rest images were reconstructed in comparing the short axis vertical long and horizontal long axis. Gated images were also obtained. Perfusion SPECT analysis: Review of the stress images demonstrate normal uptake of tracer noted in all areas of the myocardium there is globally reduced perfusion present on the stress and resting images suggestive of a cardiomyopathy. No obvious areas of reversibility are noted suggest ischemia. Gated SPECT analysis: The gated ejection fraction is 38%. Conclusion: Normal exercise myocardial perfusion stress test at a moderate workload Reduced ejection fraction.
== END | disposition home or self-care (01) ==
LOC: CVS 06:28
PROVIDERS: PCP Internal Medicine; Referring Provider Nurse Practitioner; Visit Provider Nurse Practitioner
DX: R07.9 Chest pain, unspecified (principal)
CPT/HCPCS: 78452; 93017; A9500; A4216

== ENCOUNTER → 2024-01-15 | Outpatient (CLI) | payer MEDICARE, SELFPAY ==
--- NOTE | 2024-01-15 12:50 | ECHOCS_ITS ---
Reason For Study: Cardiomyopathy on stress test Procedure This was a 2D Doppler, Color Flow transthoracic echocardiogram. The study was technically difficult. Contrast injection was performed. Exam performed in department. Left Ventricle Mildly dilated left ventricle. Moderate global left ventricular systolic dysfunction. Estimated ejection fraction 40%. Diastolic function is indeterminate. Right Ventricle Normal right ventricle. Atria The left atrium is mildly enlarged. Normal right atrium. Mitral Valve Mild (1+) mitral valve insufficiency. Tricuspid Valve Trivial tricuspid valve insufficiency. Normal pulmonary artery pressure. Aortic Valve Trisinus/trileaflet aortic valve. Trivial aortic valve insufficiency. Pulmonic Valve The pulmonic valve is not well visualized. Great Vessels Mildly dilated aortic root. Pericardium/Pleural No pericardial effusion. Medication 22 gauge I.V. with prn adaptor inserted into right arm. Diluted definity 1.5ml given slow IV push to enhance endocardial definition. MMode/2D Measurements & Calculations LVIDd: 5.7 cm IVSd: 0.91 cm Ao root diam: 3.6 cm LVIDs: 4.6 cm LVPWd: 0.95 cm LA dimension: 4.0 cm RVDd: 3.7 cm FS: 18.2 % LAV(MOD-bp): 63.6 ml LVAd ap4: 40.8 cm2 SV(MOD-sp4): 56.9 ml LAV(MOD-bp) Indexed: 35.3 ml/m2 LVLd ap4: 8.2 cm LAV(MOD-sp2): 73.1 ml EDV(MOD-sp4): 161.3 ml LAV(MOD-sp4): 54.7 ml EDV(sp4-el): 172.1 ml LVAs ap4: 30.7 cm2 LVLs ap4: 7.2 cm ESV(MOD-sp4): 104.4 ml ESV(sp4-el): 111.9 ml EF(MOD-sp4): 35.3 % EF(sp4-el): 35.0 % SV(sp4-el): 60.2 ml LA A4 area: 19.1 cm2 RA A4 area: 11.3 cm2 TAPSE: 1.5 cm Time Measurements MV dec time: 0.14 sec Doppler Measurements & Calculations MV E max trey: 97.8 cm/sec Lat Peak E' Trey: 7.5 cm/sec Med Peak E' Trey: 8.9 cm/sec MV A max trey: 96.2 cm/sec E/E' lat: 13.0 E/E' med: 11.0 MV E/A: 1.0 MV V2 max: 107.1 cm/sec MV P1/2t max trey: 92.8 cm/sec Ao V2 max: 130.0 cm/sec MV max P.6 mmHg MV P1/2t: 40.5 msec Ao max P.8 mmHg MV V2 mean: 60.2 cm/sec Ao V2 mean: 89.0 cm/sec MV mean P.7 mmHg MV dec slope: 672.0 cm/sec2 Ao mean P.6 mmHg MV V2 VTI: 25.6 cm MVA(P1/2t): 5.4 cm2 Ao V2 VTI: 31.5 cm AV (velocity ratio): 0.62 AI max trey: 428.5 cm/sec LV V1 max: 74.8 cm/sec MR max trey: 569.3 cm/sec AI max P.4 mmHg LV V1 max P.2 mmHg MR max P.6 mmHg LV V1 mean P.3 mmHg AI dec slope: 323.1 cm/sec2 LV V1 mean: 52.6 cm/sec AI P1/2t: 388.4 msec LV V1 VTI: 19.6 cm PA V2 max: 87.5 cm/sec TR max trey: 244.7 cm/sec PA max PG (full): 1.2 mmHg TR max P.9 mmHg PA V2 mean: 60.9 cm/sec PA mean PG (full): 0.80 mmHg ECHO/Echo Complete W/ Contrast Interpretation Summary Mildly dilated left ventricle. Moderate global left ventricular systolic dysfunction. Estimated ejection fract ion 40-45%. Diastolic function is indeterminate. The left atrium is mildly enlarged. Mild (1+) mitral valve insufficiency. Mildly dilated aortic root. Ordering Physician: Mellisa Blank Referring Physician: Doug Brown MD Performed By: Rupesh Rubi RCS
== END | disposition home or self-care (01) ==
LOC: CVS 12:50
PROVIDERS: PCP Internal Medicine; Referring Provider Nurse Practitioner; Visit Provider Nurse Practitioner
DX: R07.9 Chest pain, unspecified (principal); I42.9 Cardiomyopathy, unspecified
CPT/HCPCS: 93306; Q9957; A4216; C8929

== ENCOUNTER 2024-01-24 10:09 | Emergency (ER) | payer MEDICARE, SELFPAY ==
[2024-01-24 10:10] VITALS: BP 156/55; PULSE 77; RESP 16; TEMP 36.4; O2SAT 96; BMI 25.7
--- NOTE | 2024-01-24 10:18 | CT_ITS ---
STUDY: CT BRAIN WITHOUT CONTRAST REASON FOR EXAM: Male, 78 years old. Fall injury RADIATION DOSAGE (If Supplied By Facility): CTDIvol = ( 44.99 ) mGy, DLP = ( 779.24 ) mGycm TECHNIQUE: Transaxial CT imaging of the brain was performed without administration of intravenous contrast material. Individualized dose optimization techniques were used for this CT. COMPARISON: None. FINDINGS: Normal soft tissue structures. Normal calvarium. No demonstrated skull fracture or pneumocephalus or subdural hemorrhage. There is mild cerebral atrophy with widening of the extra-axial spaces and ventricular dilatation. There are areas of decreased attenuation within the white matter tracts of the supratentorial brain, consistent with microvascular disease changes. There are small punctate calcifications of the basal ganglia which are seen in the aging brain as a normal variant. Normal brainstem. Normal cerebellum. There is no intracranial hemorrhage. There are no findings of an acute ischemic infarction. Normal visualized paranasal sinuses. CT/Brain/Head without Contrast IMPRESSION: Chronic involutional changes of the brain. Electronically Signed: Corbin Khan MD at 11:38 EDT ,
--- NOTE | 2024-01-24 10:18 | CT_ITS ---
STUDY: CT CERVICAL SPINE WITHOUT CONTRAST REASON FOR EXAM: Male, 78 years old. fall RADIATION DOSAGE (If Supplied By Facility): CTDIvol = ( 20.36 ) mGy, DLP = ( 407.98 ) mGycm TECHNIQUE: High resolution transaxial imaging was performed without contrast material. Sagittal and coronal images were reconstructed. Individualized dose optimization techniques were used for this CT. COMPARISON: None FINDINGS: Normal craniovertebral junction. Normal anterior atlantoaxial articulation. Normal odontoid process. Normal cervical lordosis. Moderate to significant multilevel degenerative changes are present. Mild central canal stenosis is seen at several levels. No demonstrated jumped facets or acute fracture or compression deformity. Normal visualized soft tissue structures. CT/Spine Cervical without Contras IMPRESSION: 1. Multilevel degenerative changes, as described above. Electronically Signed: Corbin Khan MD at 11:55 EDT ,
--- NOTE | 2024-01-24 10:20 | EDS_ITS ---
HPI History of Present Illness Chief Complaint: Fall Informant: patient and spouse/S.O. Onset/Context/Timing Onset: Today Narrative Narrative: Patient presents after a fall at home. He was coming down off a ladder after hanging some brackets for a curtain sebastien. He forgot he was on the second step and fell backwards hitting a door jam. He complains of pain across the left posterior ribs. He denies striking his head or loss of consciousness. He is not on anticoagulants. [facility] Medical History Health care maintenance Osteoporosis Left elbow pain Wears hearing aid Wears glasses Constipation Former smoker Insomnia Hyperlipidemia Anxiety and depression Home Medications ?Medication ?Instructions ?Recorded ?Last Taken ?Type atorvastatin 20 mg tablet 20 mg PO QHS 02/06/22 Unknown History [id number] 333 mg-133 2 tab PO DAILY 02/06/22 Unknown History mg-5 mg tablet docusate sodium 100 mg capsule 100 mg PO DAILY 02/06/22 Unknown History multivitamin 1 tab PO DAILY 02/06/22 Unknown History sennosides 8.6 mg capsule (senna) 8.6 mg PO QHS PRN PRN Constipation 02/06/22 Unknown History tamsulosin 0.4 mg capsule 0.4 mg PO Q24H 02/28/23 Unknown History ipratropium bromide 42 mcg (0.06 2 spray intranasal BID 08/29/23 Unknown History %) nasal spray omeprazole magnesium 20 mg 20 mg PO DAILY #30 tabs 12/23/23 Unknown Rx tablet,delayed release (Prilosec OTC) ibandronate 150 mg tablet 150 mg PO QMONTH #7 tabs 12/30/23 Unknown Rx omeprazole 20 mg capsule,delayed 20 mg PO DAILY #90 caps 12/30/23 Unknown Rx release bupropion HCl 150 mg tablet,12 hr 150 mg PO BID 3 months #180 ea 01/12/24 Unknown Rx sustained-release carvedilol 12.5 mg tablet (Coreg) 12.5 mg PO BID #180 tabs 01/22/24 Unknown Rx hydrocodone-acetaminophen 5-325mg 1 tab PO Q6H PRN PRN Pain 3 days 01/24/24 Unknown Rx 5mg-325mg #10 TABLETS Allergy/AdvReac Type Severity Reaction Status Date / Time Tetracyclines Allergy Intermediate Swelling Verified 01/24/24 10:10 diphenhydramine Allergy Mild PT UNSURE Verified 01/24/24 10:10 OF REACTION acetaminophen (From NyQuil) AdvReac Other Verified 01/24/24 10:10 dextromethorphan (From AdvReac Other Verified 01/24/24 10:10 NyQuil) doxylamine (From NyQuil) AdvReac Other Verified 01/24/24 10:10 pseudoephedrine (From NyQuil) AdvReac Other Verified 01/24/24 10:10 Family History Father Hypertension Myocardial infarction CAD (coronary artery disease) Surgical History History of testicular surgery History of surgery on right wrist History of circumcision History of tonsillectomy History of umbilical hernia repair History of colonoscopy Social History adopted: No household members: spouse number of children: 2 current occupational status: retired pets and animals: Yes pets and animals: dog(s) Smoking Status: Former smoker quit date: 07/07/84 Tobacco: How many years used: 20 alcohol intake: current alcohol intake frequency: a few times a month substance use type: does not use caffeine: Yes (1) Type: coffee what type of physical activity do you participate in: walking frequency: daily seatbelt use: always do you feel safe at home: Yes ROS ROS ED Constitutional Constitutional ED: Denies chills or fever(s) Eyes Eyes: Denies discharge from eye(s) ENT ENT ED: Denies discharge from eye(s), rhinorrhea or sore throat Cardiovascular Cardiovascular: Denies chest pain or palpitations Respiratory/Chest Respiratory/Chest: Reports other Details: Pain with deep breath ; Denies cough Gastrointestinal Gastrointestinal: Denies abdominal pain, diarrhea, nausea or vomiting Musculoskeletal Musculoskeletal: Reports back pain; Denies extremity pain Integumentary Reports Abrasions; Denies rash Neurologic Neurologic: Denies headache(s) or weakness Psychiatric Psychiatric: Denies anxiety or depression Allergic/Immunologic Allergic/Immunologic ED: Denies lip swelling or urticaria EXAM Physical Exam Const Vital Signs: 01/24/24 10:09 01/24/24 10:10 01/24/24 12:09 Temperature 97.6 F L Temperature Source Temporal Pulse Rate 77 57 L Respiratory Rate 16 22 H Respiratory Effort Normal Respiratory Depth Normal Respiratory Pattern Normal Blood Pressure 156/55 H 142/81 H Blood Pressure Mean 88 101 Pulse Ox 96 99 Oxygen Delivery Method Room Air Room Air Room Air Positive well nourished and well developed General Appearance ED: well developed Eyes EOMs intact bilaterally Chest Wall inspection of chest normal and palpation of chest normal Resp normal respiratory effort and clear to auscultation bilaterally Cardio regular rhythm Rate: regular rate GI normal to inspection, nondistended, normoactive bowel sounds and non-tender Back/Spine Back/Spine Narrative: Patient with superficial abrasion across the left scapular area. No crepitus noted. No full-thickness laceration. Area is tender to touch. Extremity normal to inspection Neuro oriented x3 and moves all extremities Psych mental status grossly normal MDM MDM MDM Narrative Medical decision making narrative: Patient be sent for CT imaging of the brain and C-spine to evaluate for any acute intracranial bleed, edema, fractures. Rib series with chest x-ray obtained to evaluate for rib fracture, pneumothorax. Patient given a small dose of fentanyl and Zofran for pain control. Radiography Diagnostic Testing: Clinical Impression(s) from Imaging Studies Brain CT 01/24/24 10:18 IMPRESSION: Chronic involutional changes of the brain. Electronically Signed: Corbin Khan MD at 11:38 EDT Reading Location ID and State: [address] [place] [address] , Service support , Cervical Spine CT 01/24/24 10:18 IMPRESSION: 1. Multilevel degenerative changes, as described above. Electronically Signed: Corbin Khan MD at 11:55 EDT , Ribs w/Chest X-Ray 01/24/24 10:40 IMPRESSION: RIBS: Normal x-ray examination of the ribs. CHEST: Degenerative changes, as described above. No demonstrated acute cardiopulmonary process. Electronically Signed: Corbin Khan MD at 11:17 EDT , Treatment and Re-Evaluation Narrative: CT scan of the head and C-spine reveal degenerative changes but no acute findings. Rib series with chest x-ray per my interpretation reveals no obvious displaced rib fracture or pneumothorax. Radiology interpretation is reviewed and agrees. Test results discussed with patient and at bedside. I will give him a prescription for [place] to help control pain. We discussed the importance of deep breathing to help prevent pneumonia. Return instructions are given. Discharge Plan Triage Chief Complaint: Fall ED Provider: Lisa Navarro Dx/Rx/DC Orders Clinical Impression: Fall, Contusion of rib, Abrasion of back Instructions: ED Mechanical Fall, ED Rib Contusion or Minor Fracture Prescriptions: New hydrocodone-acetaminophen 5-325 mg tablet 1 tab PO Q6H PRN PRN (Reason: Pain) 3 Days Qty: 10 0RF No Action atorvastatin 20 mg tablet 20 mg PO QHS [id number] 333-133-5 mg tablet 2 tab PO DAILY multivitamin Tablet 1 tab PO DAILY docusate sodium 100 mg capsule 100 mg PO DAILY senna 8.6 mg capsule 8.6 mg PO QHS PRN PRN (Reason: Constipation) tamsulosin 0.4 mg capsule 0.4 mg PO Q24H Patient Comments: take 1 capsule by mouth at bedtime omeprazole magnesium [Prilosec OTC] 20 mg tablet,delayed release (DR/EC) 20 mg PO DAILY Qty: 30 0RF omeprazole 20 mg capsule,delayed release(DR/EC) 20 mg PO DAILY Qty: 90 0RF ibandronate 150 mg tablet 150 mg PO QMONTH Qty: 7 0RF Rx Instructions: Begin 2 weeks after last dose of alendronate ipratropium bromide 42 mcg (0.06 %) spray,non-aerosol 2 spray INTRANASAL BID bupropion HCl 150 mg tablet sustained-release 12 hr 150 mg PO BID 90 Days Qty: 180 1RF carvedilol [Coreg] 12.5 mg tablet 12.5 mg PO BID Qty: 180 3RF Rx Instructions: must administer with a meal/food Primary Care Provider: Eric Albright Referrals: Eric Albright MD [Primary Care Provider] - 1 Week Print Language: [place]an Disposition Disposition: Home, Self Care
[2024-01-24] MEDS: Ondansetron 4 MG/2 ML Vial IV (10:30)
[2024-01-24] MEDS: fentaNYL 100 MCG/2 ML Ampul 25 MCG IV ×2 (10:31→12:22)
--- NOTE | 2024-01-24 10:40 | RAD_ITS ---
STUDY: X-RAY - UNILATERAL RIBS ( LEFT ) WITH CHEST REASON FOR EXAM: Male, 78 years old. POSTERIOR RIB PAIN WITH BRUISING S/P FALL, TECHNIQUE - RIBS: 4 view(s) of the ribs. TECHNIQUE - CHEST: Single AP portable view of the chest. COMPARISON: None. FINDINGS - RIBS: Normal visualized ribs without a demonstrated fracture. FINDINGS - CHEST: The lungs are clear and expanded. There is no demonstrated pleural abnormality. Normal size heart. Normal mediastinum and alyssa. Normal visualized pulmonary arteries. There is atherosclerotic calcification of the aortic arch with tortuosity. There are diffuse degenerative changes of the visualized thoracic spine. Normal visualized ribs, clavicles, and shoulders. There is no demonstrated abnormality of the visualized soft tissue structures of the upper abdomen. RAD/Ribs Uni Min 3V w/PA Chest IMPRESSION: RIBS: Normal x-ray examination of the ribs. CHEST: Degenerative changes, as described above. No demonstrated acute cardiopulmonary process. Electronically Signed: Corbin Khan MD at 11:17 EDT Reading Location ID and State: [facility] / [place] , Service support ,
[2024-01-24 12:09] VITALS: BP 142/81; PULSE 57; RESP 22; O2SAT 99
[2024-01-24 12:26] VITALS: BP 161/86; PULSE 55; RESP 16; TEMP 36.6; O2SAT 99
== END 2024-01-24 12:37 | disposition home or self-care (01) ==
PROVIDERS: Emergency Provider Emergency Medicine; PCP Internal Medicine; Visit Provider Emergency Medicine
DX: S20.219A Contusion of unspecified front wall of thorax, initial encounter (principal); E78.5 Hyperlipidemia, unspecified; S30.810A Abrasion of lower back and pelvis, initial encounter; Z87.891 Personal history of nicotine dependence; W11.XXXA Fall on and from ladder, initial encounter; W22.09XA Striking against other stationary object, initial encounter
CPT/HCPCS: 70450; 71101; 72125; 96374; 96375; 96376; 99283; A4216; J2405

== ENCOUNTER → 2024-03-18 | Outpatient (CLI) | payer MEDICARE, SELFPAY ==
[2024-03-18 15:49] LABS: Anion Gap 6 (5-15); BUN 21 mg/dL (7-18); BUN/Creat Ratio 15.9 RATIO (10-20); Calcium,Total 9.2 mg/dL (8.5-10.1); Chloride 105 mmol/L (98-107); Creatinine, Serum 1.32 mg/dL (0.70-1.30); EST Glomerular Filtration Rate 56 mL/min (>60); Est Glom Filt Rate - Afr Amer 68 mL/min (>60); Glucose 113 mg/dL (74-106); Potassium 4.5 mmol/L (3.5-5.1); Sodium Level 138 mmol/L (136-145)
== END | disposition home or self-care (01) ==
LOC: LAB 14:16
PROVIDERS: PCP Internal Medicine; Referring Provider Physician Assistant Medical; Visit Provider Physician Assistant Medical
DX: I42.9 Cardiomyopathy, unspecified (principal)
CPT/HCPCS: 36415; 80048

== ENCOUNTER → 2024-04-02 | Outpatient (CLI) | payer MEDICARE, SELFPAY ==
[2024-04-02 10:37] LABS: Anion Gap 4 (5-15); BUN 16 mg/dL (7-18); BUN/Creat Ratio 13.3 RATIO (10-20); Chloride 107 mmol/L (98-107); EST Glomerular Filtration Rate 62 mL/min (>60); Est Glom Filt Rate - Afr Amer 75 mL/min (>60); Glucose 137 mg/dL (74-106); Potassium 4.1 mmol/L (3.5-5.1); Sodium Level 140 mmol/L (136-145)
== END | disposition home or self-care (01) ==
LOC: LAB 09:01
PROVIDERS: PCP Internal Medicine; Referring Provider Physician Assistant Medical; Visit Provider Physician Assistant Medical
DX: I10 Essential (primary) hypertension (principal)
CPT/HCPCS: 36415; 80048

== ENCOUNTER 2024-04-20 02:44 | Inpatient (IN) | payer MEDICARE, SELFPAY ==
[2024-04-20] VITALS (15 sets, daily range): BP systolic 92–153; BP diastolic 51–96; PULSE 61–80; RESP 15–19; TEMP 35.8–36.7; O2SAT 92–100; BMI 25.1; BMI 24.5
[2024-04-20 03:12] LABS: Absolute Lymphocyte Count 1.79 X10^3/uL (0.83-4.51); Basophil# 0.06 X10^3/uL; Basophil% 0.6 % (0-1); Hematocrit 34.4 % (40-54); Hemoglobin 10.7 g/dL (13.0-16.5); Lymphocyte # 1.79 X10^3/ul (0.83-4.51); Lymphocyte % 17.7 % (19-41); Mean Corp Hgb Conc 31.1 g/dL (32-36); Mean Corpuscular Hgb 26.8 pg (27.0-32.0); Monocyte# 1.14 X10^3/uL; Monocyte% 11.3 % (0-10); NRBC Flagged by Analyzer 0 % (0-5); Neutrophil # 6.99 X10^3/uL (2.7-7.7); Neutrophil % 69.2 % (47-70); Platelet Count 182 K/mm3 (150-450); RBC Distribution Width CV 16.5 % (11.6-14.6); RBC Distribution Width SD 52.1 fl (35.1-43.9); White Blood Count 10.1 K/mm3 (4.4-11.0)
[2024-04-20] MEDS: Morphine 2 MG/ML Syringe IV ×2 (03:16→04:55)
[2024-04-20] MEDS: Ondansetron 4 MG/2 ML Vial IV (03:16)
[2024-04-20 03:35] LABS: ALB/GLOB Ratio 1.1 RATIO (0.9-2.4); AST(SGOT) 22 U/L (15-37); Alanine Aminotransfer ALT/SGPT 22 U/L (16-61); Albumin, Serum 3.6 g/dL (3.2-5.0); Alkaline Phosphatase 54 U/L (45-117); Anion Gap 5 (5-15); BUN 14 mg/dL (7-18); Calcium,Total 8.6 mg/dL (8.5-10.1); Chloride 108 mmol/L (98-107); Creatinine, Serum 1.08 mg/dL (0.70-1.30); EST Glomerular Filtration Rate 70 mL/min (>60); Est Glom Filt Rate - Afr Amer 85 mL/min (>60); Estimated Creatinine Clearance 53.55 ml/min; Globulin 3.3 g/dL (2.2-4.2); Glucose 110 mg/dL (74-106); Lipase 28 U/L (13-75); Potassium 3.8 mmol/L (3.5-5.1); Protein, Total 6.9 g/dL (6.4-8.2); Sodium Level 139 mmol/L (136-145)
[2024-04-20 04:28] LABS: Bacteria 0 SEEN /hpf (None Seen); Mucous, Urine 0 SEEN /hpf (<or=2+); Red Blood Cells-Urine 0 SEEN /hpf (0-5); Squamous Epithelial Cells - UA 0 SEEN /hpf (0-5); White Blood Cells 0 SEEN /hpf (0-5)
[2024-04-20 04:30] LABS: Color, Urine Yellow (Yellow); Glucose, Dipstick Normal (Normal); Ketone-Dipstick Negative (Negative); Leukocyte Esterase-Dipstick Negative /ul (Negative); Nitrite-Dipstick Negative (Negative); Occult Blood-Urine Negative /ul (Negative); Protein-Dipstick Negative (Negative); Specific Gravity, Urine 1.005 (1.002-1.030); Urine Bilirubin Dipstick Negative (Negative); Urine Clarity Clear (Clear); Urine Urobilinogen Normal (Normal)
[2024-04-20] MEDS: 0.9% Normal Saline (1000mL) 1,000 ML 999 ML IV (05:21)
[2024-04-20] MEDS: HYDROmorphone 0.5 MG/0.5 ML SYRINGE IV (07:11)
[2024-04-20] MEDS: 0.9% Normal Saline (1000mL) 1,000 ML 125 ML IV ×2 (11:01→18:26)
[2024-04-20] MEDS: Enoxaparin 40 MG/0.4 ML Syringe SC (11:47)
[2024-04-20] MEDS: HYDROmorphone 1 MG/ML Syringe IV (11:47)
[2024-04-21 02:07] VITALS: BP 137/62; PULSE 82; RESP 18; TEMP 37.2; O2SAT 94
[2024-04-21] MEDS: 0.9% Saline Lock 10 ML Syringe IV (02:24)
[2024-04-21 06:48] LABS: Absolute Neutrophil Count 5.6 X10^3/uL (2.0-7.7); Basophil# 0.04 X10^3/uL; Basophil% 0.5 % (0-1); Eosinophils% 1.2 % (0-5); Hemoglobin 10.4 g/dL (13.0-16.5); Lymphocyte % 17.6 % (19-41); Mean Corp Hgb Conc 31.5 g/dL (32-36); Mean Corpuscular Hgb 27.4 pg (27.0-32.0); Mean Corpuscular Volume 87.1 fL (80-94); Mean Platelet Vol. 10.3 fl (6.2-12.0); Monocyte# 1.23 X10^3/uL; Monocyte% 14.5 % (0-10); NRBC Flagged by Analyzer 0 % (0-5); Neutrophil % 65.8 % (47-70); Platelet Count 174 K/mm3 (150-450); RBC Distribution Width CV 16.6 % (11.6-14.6); RBC Distribution Width SD 53.2 fl (35.1-43.9); Red Blood Count 3.79 M/mm3 (4.6-6.2); White Blood Count 8.5 K/mm3 (4.4-11.0)
[2024-04-21 07:18] LABS: Anion Gap 4 (5-15); BUN 7 mg/dL (7-18); BUN/Creat Ratio 8.3 RATIO (10-20); Calcium,Total 8.3 mg/dL (8.5-10.1); Chloride 112 mmol/L (98-107); Creatinine, Serum 0.84 mg/dL (0.70-1.30); EST Glomerular Filtration Rate 94 mL/min (>60); Est Glom Filt Rate - Afr Amer 113 mL/min (>60); Estimated Creatinine Clearance 71.25 ml/min; Glucose 82 mg/dL (74-106); Sodium Level 141 mmol/L (136-145)
[2024-04-21 08:00] VITALS: O2SAT 94
[2024-04-21 08:27] VITALS: BP 118/52; PULSE 70; RESP 15; TEMP 37; O2SAT 97
[2024-04-21] MEDS: Enoxaparin 40 MG/0.4 ML Syringe SC (08:43)
[2024-04-21] MEDS: Bisacodyl 5 MG Tablet 20 MG PO (15:45)
[2024-04-21 17:03] VITALS: BP 127/54; PULSE 64; RESP 15; TEMP 37.1; O2SAT 98
[2024-04-21] MEDS: Polyethylene Glycol 3350 BOWEL PREP PO (17:12)
[2024-04-21 21:29] VITALS: BP 132/64; PULSE 62; RESP 16; TEMP 36.8; O2SAT 97
[2024-04-21] MEDS: Tamsulosin HCl 0.4 MG Capsule PO (22:57)
[2024-04-21] MEDS: Ipratropium Bromide 0.06% NASAL SPRAY 2 SPRAY NASAL (22:57)
[2024-04-21] MEDS: Carvedilol 12.5 MG Tablet PO (22:57)
[2024-04-21] MEDS: buPROPion (SR) 150 MG Tablet.SA PO (22:58)
[2024-04-22 03:22] VITALS: BP 142/62; PULSE 58; RESP 16; TEMP 37.2; O2SAT 97
[2024-04-22 06:50] LABS: Absolute Lymphocyte Count 1.86 X10^3/uL (0.83-4.51); Absolute Neutrophil Count 3.9 X10^3/uL (2.0-7.7); Basophil# 0.04 X10^3/uL; Basophil% 0.6 % (0-1); Eosinophil# 0.19 X10^3/uL; Eosinophils% 2.7 % (0-5); Hematocrit 33.6 % (40-54); Hemoglobin 10.3 g/dL (13.0-16.5); Lymphocyte # 1.86 X10^3/ul (0.83-4.51); Lymphocyte % 26.1 % (19-41); Mean Corp Hgb Conc 30.7 g/dL (32-36); Mean Corpuscular Hgb 26.9 pg (27.0-32.0); Mean Corpuscular Volume 87.7 fL (80-94); Mean Platelet Vol. 9.8 fl (6.2-12.0); Monocyte# 1.19 X10^3/uL; Monocyte% 16.7 % (0-10); NRBC Flagged by Analyzer 0 % (0-5); Neutrophil # 3.85 X10^3/uL (2.7-7.7); Neutrophil % 53.8 % (47-70); Platelet Count 160 K/mm3 (150-450); RBC Distribution Width CV 16.7 % (11.6-14.6); RBC Distribution Width SD 53.4 fl (35.1-43.9); Red Blood Count 3.83 M/mm3 (4.6-6.2); White Blood Count 7.1 K/mm3 (4.4-11.0)
[2024-04-22 07:14] LABS: Anion Gap 2 (5-15); BUN 6 mg/dL (7-18); BUN/Creat Ratio 6.3 RATIO (10-20); Chloride 112 mmol/L (98-107); Creatinine, Serum 0.94 mg/dL (0.70-1.30); EST Glomerular Filtration Rate 82 mL/min (>60); Est Glom Filt Rate - Afr Amer 99 mL/min (>60); Estimated Creatinine Clearance 63.67 ml/min; Glucose 91 mg/dL (74-106); Sodium Level 143 mmol/L (136-145)
[2024-04-22 07:57] VITALS: O2SAT 95
[2024-04-22 09:08] VITALS: BP 118/54; PULSE 67; RESP 18; TEMP 36.4; O2SAT 98
[2024-04-22] MEDS: Piperacil/Tazobactam 3.375 GM in 0.9% Normal Saline (50mL MB+) 50 ML IV ×3 (09:12→23:32)
[2024-04-22] MEDS: Ipratropium Bromide 0.06% NASAL SPRAY 2 SPRAY NASAL ×2 (09:16→21:39)
[2024-04-22] MEDS: Pantoprazole Sodium 20 MG Tablet PO (09:16)
[2024-04-22] MEDS: Enoxaparin 40 MG/0.4 ML Syringe SC (09:16)
[2024-04-22] MEDS: Spironolactone 25 MG Tablet PO (09:16)
[2024-04-22] MEDS: Carvedilol 12.5 MG Tablet PO ×2 (09:19→21:38)
[2024-04-22] MEDS: buPROPion (SR) 150 MG Tablet.SA PO ×2 (09:19→21:38)
[2024-04-22] MEDS: metroNIDAZOLE 500 MG Tablet 1000 MG PO ×3 (13:30→23:31)
[2024-04-22] MEDS: Bisacodyl 5 MG Tablet 20 MG PO (13:30)
[2024-04-22 14:36] VITALS: BP 135/54; PULSE 60; RESP 18; TEMP 36.6; O2SAT 98
[2024-04-22] MEDS: Polyethylene Glycol 3350 BOWEL PREP 1 BOTTLE PO (17:18)
[2024-04-22 21:37] VITALS: BP 148/63; PULSE 67; RESP 18; TEMP 36.7; O2SAT 97
[2024-04-22] MEDS: Tamsulosin HCl 0.4 MG Capsule PO (21:38)
[2024-04-22] MEDS: Atorvastatin Calcium 20 MG Tablet PO (21:39)
[2024-04-23] VITALS (18 sets, daily range): BP systolic 97–140; BP diastolic 43–80; PULSE 60–98; RESP 16–18; TEMP 36.2–36.9; O2SAT 91–99; BMI 24.5
[2024-04-23] MEDS: Piperacil/Tazobactam 3.375 GM in 0.9% Normal Saline (50mL MB+) 50 ML IV ×3 (05:07→22:53)
[2024-04-23 06:43] LABS: Absolute Lymphocyte Count 1.57 X10^3/uL (0.83-4.51); Absolute Neutrophil Count 4.1 X10^3/uL (2.0-7.7); Basophil# 0.05 X10^3/uL; Basophil% 0.7 % (0-1); Eosinophils% 2.9 % (0-5); Hematocrit 32.6 % (40-54); Hemoglobin 10.4 g/dL (13.0-16.5); Lymphocyte # 1.57 X10^3/ul (0.83-4.51); Lymphocyte % 22.4 % (19-41); Mean Corp Hgb Conc 31.9 g/dL (32-36); Mean Corpuscular Hgb 27.4 pg (27.0-32.0); Mean Corpuscular Volume 85.8 fL (80-94); Mean Platelet Vol. 9.9 fl (6.2-12.0); Monocyte# 1.07 X10^3/uL; Monocyte% 15.3 % (0-10); NRBC Flagged by Analyzer 0 % (0-5); Neutrophil # 4.09 X10^3/uL (2.7-7.7); Neutrophil % 58.4 % (47-70); Platelet Count 176 K/mm3 (150-450); RBC Distribution Width CV 16.3 % (11.6-14.6); RBC Distribution Width SD 51.5 fl (35.1-43.9)
[2024-04-23 06:57] LABS: International Normalized Ratio 1.3; Prothrombin Time (Protime)PT. 15.7 SECONDS (11.7-14.9)
[2024-04-23 06:58] LABS: Partial Thromboplast Time 37.2 Seconds (24.1-36.2)
[2024-04-23 07:17] LABS: Anion Gap 5 (5-15); BUN 6 mg/dL (7-18); BUN/Creat Ratio 5.5 RATIO (10-20); Calcium,Total 8.2 mg/dL (8.5-10.1); Chloride 111 mmol/L (98-107); Creatinine, Serum 1.09 mg/dL (0.70-1.30); EST Glomerular Filtration Rate 70 mL/min (>60); Est Glom Filt Rate - Afr Amer 84 mL/min (>60); Estimated Creatinine Clearance 54.91 ml/min; Glucose 105 mg/dL (74-106); Potassium 3.4 mmol/L (3.5-5.1); Sodium Level 140 mmol/L (136-145)
[2024-04-23] MEDS: Potassium Chloride Oral Tablet 20 MEQ 40 MEQ PO (08:29)
[2024-04-23] MEDS: Ipratropium Bromide 0.06% NASAL SPRAY 2 SPRAY NASAL ×2 (08:40→20:24)
[2024-04-23] MEDS: BUPIVACAINE LIPOSOME/PF 20 ML VIAL OPERA.SITE (12:16)
[2024-04-23] MEDS: Bupivacaine 0.25% 30 ML Vial (13:12)
[2024-04-23] MEDS: Tamsulosin HCl 0.4 MG Capsule PO (20:25)
[2024-04-23] MEDS: Carvedilol 12.5 MG Tablet PO (20:25)
[2024-04-23] MEDS: MELATONIN 10 MG TABLET PO (20:25)
[2024-04-23] MEDS: Atorvastatin Calcium 20 MG Tablet PO (20:25)
[2024-04-23] MEDS: buPROPion (SR) 150 MG Tablet.SA PO (20:26)
[2024-04-24 03:37] VITALS: BP 125/91; PULSE 65; RESP 16; TEMP 37; O2SAT 97
[2024-04-24 05:40] LABS: Absolute Lymphocyte Count 0.86 X10^3/uL (0.83-4.51); Absolute Neutrophil Count 7.6 X10^3/uL (2.0-7.7); Basophil# 0.04 X10^3/uL; Basophil% 0.4 % (0-1); Eosinophil# 0.12 X10^3/uL; Eosinophils% 1.2 % (0-5); Hematocrit 34.9 % (40-54); Lymphocyte # 0.86 X10^3/ul (0.83-4.51); Lymphocyte % 8.3 % (19-41); Mean Corp Hgb Conc 31.5 g/dL (32-36); Mean Corpuscular Hgb 27.6 pg (27.0-32.0); Mean Corpuscular Volume 87.5 fL (80-94); Monocyte# 1.65 X10^3/uL; NRBC Flagged by Analyzer 0 % (0-5); Neutrophil # 7.61 X10^3/uL (2.7-7.7); Neutrophil % 73.6 % (47-70); POSITIVE DIFFERENTIAL YES; Platelet Count 196 K/mm3 (150-450); RBC Distribution Width CV 16.4 % (11.6-14.6); RBC Distribution Width SD 52.2 fl (35.1-43.9); Red Blood Count 3.99 M/mm3 (4.6-6.2); White Blood Count 10.3 K/mm3 (4.4-11.0)
[2024-04-24 05:48] LABS: Differential Indicated SCAN CRITERIA MET
[2024-04-24 06:03] LABS: Anion Gap 4 (5-15); BUN 7 mg/dL (7-18); BUN/Creat Ratio 6.9 RATIO (10-20); Chloride 110 mmol/L (98-107); Creatinine, Serum 1.02 mg/dL (0.70-1.30); EST Glomerular Filtration Rate 75 mL/min (>60); Est Glom Filt Rate - Afr Amer 91 mL/min (>60); Estimated Creatinine Clearance 58.68 ml/min; Glucose 106 mg/dL (74-106); Sodium Level 140 mmol/L (136-145)
[2024-04-24 06:24] LABS: Differential Comment SCANNED
[2024-04-24] MEDS: Piperacil/Tazobactam 3.375 GM in 0.9% Normal Saline (50mL MB+) 50 ML IV ×3 (06:38→21:09)
[2024-04-24] MEDS: HYDROmorphone 1 MG/ML Syringe IV (06:40)
[2024-04-24 06:50] VITALS: BP 147/64; PULSE 61; RESP 18; TEMP 37; O2SAT 98
[2024-04-24 09:48] VITALS: BP 108/61; PULSE 87; RESP 18; TEMP 36.6; O2SAT 93
[2024-04-24] MEDS: Pantoprazole Sodium 20 MG Tablet PO (09:50)
[2024-04-24] MEDS: Enoxaparin 40 MG/0.4 ML Syringe SC (09:51)
[2024-04-24] MEDS: buPROPion (SR) 150 MG Tablet.SA PO ×2 (09:51→21:10)
[2024-04-24] MEDS: Ipratropium Bromide 0.06% NASAL SPRAY 2 SPRAY NASAL ×2 (09:51→21:09)
[2024-04-24] MEDS: Acetaminophen 500 MG Tablet 1000 MG PO (14:56)
[2024-04-24 15:13] VITALS: BP 119/53; PULSE 83; RESP 18; TEMP 36.6; O2SAT 93
[2024-04-24] MEDS: Tamsulosin HCl 0.4 MG Capsule PO (15:59)
[2024-04-24] MEDS: oxyCODONE 5 MG Tablet PO ×2 (15:59→21:15)
[2024-04-24] MEDS: Carvedilol 12.5 MG Tablet PO (21:10)
[2024-04-24] MEDS: Atorvastatin Calcium 20 MG Tablet PO (21:10)
[2024-04-24] MEDS: MELATONIN 10 MG TABLET PO (21:10)
[2024-04-24 21:15] VITALS: BP 161/75; PULSE 82; RESP 16; TEMP 37.2; O2SAT 95
[2024-04-24] MEDS: Ondansetron 4 MG/2 ML Vial IV (21:15)
[2024-04-25] MEDS: Ondansetron 4 MG/2 ML Vial IV (05:00)
[2024-04-25] MEDS: 0.9% Saline Lock 10 ML Syringe IV ×2 (05:00→12:52)
[2024-04-25] MEDS: Piperacil/Tazobactam 3.375 GM in 0.9% Normal Saline (50mL MB+) 50 ML IV ×3 (05:00→20:43)
[2024-04-25 05:09] VITALS: BP 153/81; PULSE 90; RESP 16; TEMP 37.3; O2SAT 93
[2024-04-25 07:23] LABS: Absolute Lymphocyte Count 0.86 X10^3/uL (0.83-4.51); Absolute Neutrophil Count 9.9 X10^3/uL (2.0-7.7); Basophil# 0.02 X10^3/uL; Basophil% 0.2 % (0-1); Eosinophil# 0.03 X10^3/uL; Eosinophils% 0.2 % (0-5); Lymphocyte # 0.86 X10^3/ul (0.83-4.51); Lymphocyte % 6.8 % (19-41); Mean Corp Hgb Conc 30.6 g/dL (32-36); Mean Corpuscular Hgb 26.7 pg (27.0-32.0); Mean Corpuscular Volume 87.4 fL (80-94); Monocyte# 1.77 X10^3/uL; NRBC Flagged by Analyzer 0 % (0-5); Neutrophil # 9.89 X10^3/uL (2.7-7.7); Neutrophil % 78.6 % (47-70); POSITIVE DIFFERENTIAL YES; Platelet Count 202 K/mm3 (150-450); RBC Distribution Width CV 16.2 % (11.6-14.6); RBC Distribution Width SD 51.9 fl (35.1-43.9); Red Blood Count 4.12 M/mm3 (4.6-6.2); White Blood Count 12.6 K/mm3 (4.4-11.0)
[2024-04-25 07:46] LABS: Anion Gap 6 (5-15); BUN 8 mg/dL (7-18); BUN/Creat Ratio 9.5 RATIO (10-20); Calcium,Total 8.6 mg/dL (8.5-10.1); Chloride 104 mmol/L (98-107); Creatinine, Serum 0.85 mg/dL (0.70-1.30); EST Glomerular Filtration Rate 93 mL/min (>60); Est Glom Filt Rate - Afr Amer 113 mL/min (>60); Estimated Creatinine Clearance 70.41 ml/min; Glucose 140 mg/dL (74-106); Potassium 3.5 mmol/L (3.5-5.1); Sodium Level 137 mmol/L (136-145)
[2024-04-25 08:17] LABS: Differential Indicated SCAN CRITERIA MET
[2024-04-25 09:00] VITALS: BP 154/71; PULSE 86; RESP 18; TEMP 37.2; O2SAT 94
[2024-04-25 09:23] LABS: Differential Comment SCANNED
[2024-04-25] MEDS: oxyCODONE 5 MG Tablet PO (09:23)
[2024-04-25] MEDS: buPROPion (SR) 150 MG Tablet.SA PO ×2 (09:24→20:38)
[2024-04-25] MEDS: Carvedilol 12.5 MG Tablet PO ×2 (09:24→20:38)
[2024-04-25] MEDS: Pantoprazole Sodium 20 MG Tablet PO (09:24)
[2024-04-25] MEDS: Enoxaparin 40 MG/0.4 ML Syringe SC (09:25)
[2024-04-25] MEDS: Spironolactone 25 MG Tablet PO (09:25)
[2024-04-25] MEDS: Ipratropium Bromide 0.06% NASAL SPRAY 2 SPRAY NASAL ×2 (09:26→20:37)
[2024-04-25] MEDS: proCHLORPERazine 10 MG/2 ML Vial IV (12:51)
[2024-04-25 16:24] VITALS: BP 113/53; PULSE 78; RESP 17; TEMP 37.2; O2SAT 93
[2024-04-25] MEDS: Tamsulosin HCl 0.4 MG Capsule PO (20:38)
[2024-04-25] MEDS: MELATONIN 10 MG TABLET PO (20:38)
[2024-04-25] MEDS: Atorvastatin Calcium 20 MG Tablet PO (20:38)
[2024-04-25 20:52] VITALS: BP 106/54; PULSE 65; RESP 16; TEMP 36.6; O2SAT 94
[2024-04-26 02:40] VITALS: BP 102/55; PULSE 68; RESP 16; TEMP 36.8; O2SAT 94
[2024-04-26] MEDS: 0.9% Saline Lock 10 ML Syringe IV (06:37)
[2024-04-26] MEDS: Piperacil/Tazobactam 3.375 GM in 0.9% Normal Saline (50mL MB+) 50 ML IV (06:37)
[2024-04-26 07:23] LABS: Absolute Lymphocyte Count 1.39 X10^3/uL (0.83-4.51); Absolute Neutrophil Count 7.7 X10^3/uL (2.0-7.7); Basophil# 0.03 X10^3/uL; Basophil% 0.3 % (0-1); Eosinophil# 0.07 X10^3/uL; Eosinophils% 0.6 % (0-5); Hematocrit 31.7 % (40-54); Hemoglobin 10.1 g/dL (13.0-16.5); Lymphocyte # 1.39 X10^3/ul (0.83-4.51); Lymphocyte % 12.8 % (19-41); Mean Corp Hgb Conc 31.9 g/dL (32-36); Mean Corpuscular Hgb 27.4 pg (27.0-32.0); Mean Corpuscular Volume 86.1 fL (80-94); Mean Platelet Vol. 9.7 fl (6.2-12.0); Monocyte# 1.66 X10^3/uL; Monocyte% 15.3 % (0-10); NRBC Flagged by Analyzer 0 % (0-5); Neutrophil # 7.66 X10^3/uL (2.7-7.7); Neutrophil % 70.6 % (47-70); POSITIVE DIFFERENTIAL YES; Platelet Count 166 K/mm3 (150-450); RBC Distribution Width CV 16.6 % (11.6-14.6); RBC Distribution Width SD 51.8 fl (35.1-43.9); Red Blood Count 3.68 M/mm3 (4.6-6.2); White Blood Count 10.9 K/mm3 (4.4-11.0)
[2024-04-26 07:32] LABS: Differential Indicated SCAN CRITERIA MET
[2024-04-26 08:03] LABS: Anion Gap 8 (5-15); BUN 15 mg/dL (7-18); BUN/Creat Ratio 17.8 RATIO (10-20); Calcium,Total 8.5 mg/dL (8.5-10.1); Chloride 105 mmol/L (98-107); Creatinine, Serum 0.84 mg/dL (0.70-1.30); EST Glomerular Filtration Rate 94 mL/min (>60); Est Glom Filt Rate - Afr Amer 113 mL/min (>60); Estimated Creatinine Clearance 71.25 ml/min; Glucose 104 mg/dL (74-106); Sodium Level 139 mmol/L (136-145)
[2024-04-26 09:32] LABS: Pathologist Review Reviewed
[2024-04-26] MEDS: Ipratropium Bromide 0.06% NASAL SPRAY 2 SPRAY NASAL (09:32)
[2024-04-26] MEDS: Spironolactone 25 MG Tablet PO (09:33)
[2024-04-26] MEDS: Carvedilol 12.5 MG Tablet PO (09:33)
[2024-04-26] MEDS: buPROPion (SR) 150 MG Tablet.SA PO (09:33)
[2024-04-26] MEDS: Pantoprazole Sodium 20 MG Tablet PO (09:33)
[2024-04-26] MEDS: Enoxaparin 40 MG/0.4 ML Syringe SC (09:34)
[2024-04-26 10:00] VITALS: BP 119/63; PULSE 84; RESP 16; TEMP 36.9; O2SAT 98
[2024-04-26] MEDS: Potassium Chloride Oral Tablet 20 MEQ 60 MEQ PO (10:34)
[2024-04-26 16:54] VITALS: BP 122/59; PULSE 87; RESP 16; TEMP 36.9; O2SAT 94
== END 2024-04-26 17:46 | disposition home or self-care (01) | DRG 330 ==
LOC: ED 08:14 → ICU 10:15 → MS3 17:02
PROVIDERS: Anesthesiology; Internal Medicine Gastroenterology; Surgery; Admitting Provider Student in an Organized Health Care Education/Training Program; Emergency Provider Surgery; PCP Internal Medicine
PROC: 0DJD8ZZ Inspection of Lower Intestinal Tract, Via Natural or Artificial Opening Endoscopic (ICD-10-PCS; CPT 45378; principal; 2024-04-20 16:10)
PROC: 0DTN0ZZ Resection of Sigmoid Colon, Open Approach (ICD-10-PCS; CPT 44204; principal; 2024-04-23 12:05)
DX: K56.2 Volvulus (principal); I42.9 Cardiomyopathy, unspecified; Q43.8 Other specified congenital malformations of intestine; N13.8 Other obstructive and reflux uropathy; Z66 Do not resuscitate; I70.0 Atherosclerosis of aorta; I10 Essential (primary) hypertension; D64.9 Anemia, unspecified; F32.A Depression, unspecified; R14.0 Abdominal distension (gaseous); I77.811 Abdominal aortic ectasia; I25.10 Atherosclerotic heart disease of native coronary artery without angina pectoris; E78.5 Hyperlipidemia, unspecified; K80.20 Calculus of gallbladder without cholecystitis without obstruction; E87.6 Hypokalemia; F41.9 Anxiety disorder, unspecified; N30.90 Cystitis, unspecified without hematuria; Z87.891 Personal history of nicotine dependence; N32.89 Other specified disorders of bladder; Z79.83 Long term (current) use of bisphosphonates; N40.1 Benign prostatic hyperplasia with lower urinary tract symptoms; Z79.891 Long term (current) use of opiate analgesic; Z79.01 Long term (current) use of anticoagulants; Z53.31 Laparoscopic surgical procedure converted to open procedure
CPT/HCPCS: 36415; 74018; 74177; 76000; 80048; 80053; 81001; 83605; 83690; 85025; 85610; 85730; 86850; 86900; 86901; 88309; 93005; 94668; 97161; 99284; J7030; Q9967; A4216; C1760; J2405

== ENCOUNTER → 2024-05-07 | Outpatient (CLI) | payer MEDICARE, SELFPAY ==
[2024-05-07 13:13] LABS: Hemoglobin A1c 5.9 % (3.8-5.6)
[2024-05-10 14:09] LABS: ANTINUCLEAR ANTIBODIES DIRECT Negative (Negative)
== END | disposition home or self-care (01) ==
LOC: BIMLAB 10:23
PROVIDERS: PCP Internal Medicine; Referring Provider Internal Medicine; Visit Provider Internal Medicine
DX: R68.2 Dry mouth, unspecified (principal); R73.03 Prediabetes
CPT/HCPCS: 36415; 83036; 86038; 86225; 86235

== ENCOUNTER → 2024-06-24 | Outpatient (CLI) | payer MEDICARE, SELFPAY ==
--- NOTE | 2024-06-24 08:59 | ECHOCS_ITS ---
Reason For Study: CHF Procedure This was a 2D Doppler, Color Flow transthoracic echocardiogram. The study was technically difficult. Contrast injection was performed. Exam performed in department. Left Ventricle Normal LV size. The estimated ejection fraction is 35 %. Stage 1 diastolic dysfunction. There is moderate global hypokinesis of the left ventricle. Right Ventricle Normal RV size. Normal systolic function. Tricuspid Valve Normal tricuspid valve. Mild tricuspid valve insufficiency. Aortic Valve Trisinus/trileaflet aortic valve. Mild (1+) aortic valve insufficiency. Pulmonic Valve The pulmonic valve is not well visualized. Great Vessels Normal aortic root. Pericardium/Pleural No pericardial effusion. Medication 22 gauge I.V. with prn adaptor inserted into right arm. Diluted definity 2ml given slow IV push to enhance endocardial definition. MMode/2D Measurements & Calculations LVIDd: 4.8 cm IVSd: 1.1 cm Ao root diam: 3.4 cm LVIDs: 3.8 cm LVPWd: 0.93 cm RVDd: 3.2 cm FS: 22.2 % LAV(MOD-bp): 53.5 ml LVAd ap4: 34.1 cm2 SV(MOD-sp4): 38.4 ml LAV(MOD-bp) Indexed: 29.3 ml/m2 LVLd ap4: 7.8 cm SI(MOD-sp4): 21.1 ml/m2 LAV(MOD-sp2): 57.8 ml EDV(MOD-sp4): 122.6 ml LAV(MOD-sp4): 47.9 ml EDV(sp4-el): 126.0 ml LVAs ap4: 27.4 cm2 LVLs ap4: 7.2 cm ESV(MOD-sp4): 84.2 ml ESV(sp4-el): 87.9 ml EF(MOD-sp4): 31.3 % EF(sp4-el): 30.3 % SV(sp4-el): 38.1 ml LA dimension(2D): 3.5 cm LA A4 area: 17.2 cm2 RA A4 area: 12.1 cm2 TAPSE: 1.6 cm Time Measurements MV dec time: 0.31 sec Doppler Measurements & Calculations MV E max trey: 58.9 cm/sec Lat Peak E' Trey: 7.1 cm/sec Med Peak E' Trey: 6.5 cm/sec MV A max trye: 95.3 cm/sec E/E' lat: 8.3 E/E' med: 9.1 MV E/A: 0.62 MV V2 max: 110.2 cm/sec MV P1/2t max trey: 82.6 cm/sec Ao V2 max: 120.2 cm/sec MV max P.9 mmHg MV P1/2t: 124.3 msec Ao max P.8 mmHg MV V2 mean: 59.4 cm/sec Ao V2 mean: 89.0 cm/sec MV mean P.7 mmHg MV dec slope: 194.8 cm/sec2 Ao mean P.5 mmHg MV V2 VTI: 31.4 cm MVA(P1/2t): 1.8 cm2 Ao V2 VTI: 26.5 cm AI max trey: 340.3 cm/sec LV V1 max: 81.9 cm/sec MR max trey: 587.7 cm/sec AI max P.3 mmHg LV V1 max P.7 mmHg MR max P.1 mmHg MR mean trey: 464.4 cm/sec AI dec slope: 174.9 cm/sec2 MR mean P.6 mmHg AI P1/2t: 569.7 msec MR VTI: 210.7 cm PA V2 max: 84.0 cm/sec TR max trey: 223.2 cm/sec TR max P.9 mmHg ECHO/Echo Complete W/ Contrast Interpretation Summary Normal LV size. The estimated ejection fraction is 35 %. There is moderate global hypokinesis of the left ventricle. Stage 1 diastolic dysfunction. Contrast injection was performed. Ordering Physician: Daly Soto Referring Physician: Daly Soto Performed By: Rupesh Rubi RCS
== END | disposition home or self-care (01) ==
PROVIDERS: PCP Internal Medicine; Referring Provider Physician Assistant Medical; Visit Provider Physician Assistant Medical
DX: I51.9 Heart disease, unspecified (principal)
CPT/HCPCS: 93306; Q9957; A4216; C8929

== ENCOUNTER → 2024-08-09 | Outpatient (CLI) | payer MEDICARE, SELFPAY ==
[2024-08-09 12:21] LABS: Absolute Lymphocyte Count 1.56 X10^3/uL (0.83-4.51); Absolute Neutrophil Count 3.9 X10^3/uL (2.0-7.7); Basophil# 0.06 X10^3/uL; Basophil% 0.9 % (0-1); Eosinophil# 0.12 X10^3/uL; Eosinophils% 1.8 % (0-5); Hematocrit 42.6 % (40-54); Lymphocyte # 1.56 X10^3/ul (0.83-4.51); Lymphocyte % 23.5 % (19-41); Mean Corp Hgb Conc 30.5 g/dL (32-36); Mean Corpuscular Hgb 28.1 pg (27.0-32.0); Mean Platelet Vol. 10.7 fl (6.2-12.0); Monocyte# 0.99 X10^3/uL; Monocyte% 14.9 % (0-10); NRBC Flagged by Analyzer 0 % (0-5); Neutrophil % 58.7 % (47-70); Platelet Count 185 K/mm3 (150-450); RBC Distribution Width CV 17.2 % (11.6-14.6); RBC Distribution Width SD 58.2 fl (35.1-43.9); Red Blood Count 4.63 M/mm3 (4.6-6.2); White Blood Count 6.6 K/mm3 (4.4-11.0)
[2024-08-09 12:31] LABS: ALB/GLOB Ratio 1.1 RATIO (0.9-2.4); AST(SGOT) 24 U/L (15-37); Alanine Aminotransfer ALT/SGPT 28 U/L (16-61); Albumin, Serum 3.7 g/dL (3.2-5.0); Alkaline Phosphatase 54 U/L (45-117); Anion Gap 3 (5-15); BUN 18 mg/dL (7-18); BUN/Creat Ratio 14.2 RATIO (10-20); Calcium,Total 9.2 mg/dL (8.5-10.1); Chloride 105 mmol/L (98-107); Cholesterol 141 mg/dL (200); Creatinine, Serum 1.27 mg/dL (0.70-1.30); EST Glomerular Filtration Rate 58 mL/min (>60); Est Glom Filt Rate - Afr Amer 71 mL/min (>60); Globulin 3.5 g/dL (2.2-4.2); Glucose 93 mg/dL (74-106); High Density Lipoprotein 74 mg/dL; Potassium 4.8 mmol/L (3.5-5.1); Protein, Total 7.2 g/dL (6.4-8.2); Sodium Level 138 mmol/L (136-145); Triglycerides 76 mg/dL; Very Low Density Lipoprotein 15 mg/dL (5-40)
[2024-08-09 12:40] LABS: Hemoglobin A1c 5.5 % (3.8-5.6)
== END | disposition home or self-care (01) ==
PROVIDERS: PCP Internal Medicine; Referring Provider Internal Medicine; Visit Provider Internal Medicine
DX: E78.00 Pure hypercholesterolemia, unspecified (principal); I10 Essential (primary) hypertension; R73.03 Prediabetes
CPT/HCPCS: 36415; 80053; 80061; 83036; 85025

== ENCOUNTER → 2024-11-08 | Outpatient (CLI) | payer MEDICARE, SELFPAY ==
[2024-11-08 13:21] LABS: PSA,Total- Diagnostic 4.24 ng/mL (0.00-4.00)
== END | disposition home or self-care (01) ==
LOC: LAB 11:32
PROVIDERS: PCP Internal Medicine; Referring Provider Nurse Practitioner; Visit Provider Nurse Practitioner
DX: R97.20 Elevated prostate specific antigen [PSA] (principal)
CPT/HCPCS: 36415; 84153

== ENCOUNTER → 2024-12-08 | Outpatient (CLI) | payer MEDICARE, SELFPAY ==
[2024-12-08 12:49] LABS: Anion Gap 10 (5-15); BUN 24 mg/dL (4-19); Calcium,Total 9.4 mg/dL (7.6-11.0); Carbon Dioxide 24.5 mmol/L (21.0-32.0); Chloride 102 mmol/L (98-108); Creatinine, Serum 1.27 mg/dL (0.70-1.20); EST Glomerular Filtration Rate 58 (>60); Glucose 103 mg/dL (70-99); Potassium 4.8 mmol/L (3.3-5.1); Sodium Level 137 mmol/L (133-145)
== END | disposition home or self-care (01) ==
LOC: BIMLAB 10:59
PROVIDERS: PCP Internal Medicine; Referring Provider Internal Medicine; Visit Provider Internal Medicine
DX: I10 Essential (primary) hypertension (principal)
CPT/HCPCS: 36415; 80048

== ENCOUNTER 2024-12-09 14:03 | Outpatient (CLI) | payer MEDICARE, SELFPAY ==
[2024-12-09 15:58] LABS: Microalbumin,Random Urine < 12.0 mg/L (NO RANGE EST.); Microalbumin:Creatinine Ratio UNABLE TO CALCULATE mg/g CRE
== END 2024-12-09 23:59 | disposition home or self-care (01) ==
LOC: LABSPEC 14:07
PROVIDERS: PCP Internal Medicine; Referring Provider Internal Medicine; Visit Provider Internal Medicine
DX: N28.9 Disorder of kidney and ureter, unspecified (principal)
CPT/HCPCS: 82043; 82570

== ENCOUNTER → 2025-01-04 | Outpatient (CLI) | payer MEDICARE, SELFPAY ==
--- NOTE | 2025-01-04 09:25 | BD_ITS ---
PROCEDURE: DEXA BONE DENSITY STUDY 01/04/2025 REASON FOR EXAM: OSTEOPOROSIS M, age 79 y/o . TECHNIQUE: DEXA BONE DENSITY STUDY COMPARISON: DEXA scan on 01/02/2023 FINDINGS: BMD and T-SCORES Lumbar spine: 0.903 g/cm2, T-score -1.9 Levels: L2 through L4 Change from prior: No significant change in BMD.. Left femoral neck: 0.545 g/cm2, T-score -2.8 Femoral neck comparison data not recommended for monitoring change. Prior T-score -2.8 Left total hip: 0.689 g/cm2, T-score -2.3 Change from prior: No significant change in BMD.. Right femoral neck: 0.589 g/cm2, T-score -2.5 Femoral neck comparison data not recommended for monitoring change. Prior T-score -2.4 Right total hip: 0.685 g/cm2, T-score -2.3 Change from prior: No significant change in BMD.. The World Health Organization has defined the following categories based on bone density: Normal bone density: T-score equal to or greater than -1.0 Osteopenia: T-score between -1.0 and -2.5 Osteoporosis: T-score equal to or less than -2.5 BD/Dexa Bone Density Study IMPRESSION: OSTEOPOROSIS. Reading Location: [id number]
== END | disposition home or self-care (01) ==
PROVIDERS: PCP Internal Medicine; Referring Provider Nurse Practitioner Family; Visit Provider Nurse Practitioner Family
DX: M81.0 Age-related osteoporosis without current pathological fracture (principal)
CPT/HCPCS: 77080

== ENCOUNTER → 2025-01-10 | Outpatient (CLI) | payer MEDICARE, SELFPAY ==
[2025-01-10 13:05] LABS: PTHIN 29 pg/mL (11-61)
[2025-01-10 13:14] LABS: Anion Gap 10 (5-15); BUN 21 mg/dL (4-19); BUN/Creat Ratio 15.4 RATIO (10-20); Calcium,Total 9.4 mg/dL (7.6-11.0); Carbon Dioxide 27.4 mmol/L (21.0-32.0); Chloride 102 mmol/L (98-108); Glucose 96 mg/dL (70-99); Potassium 4.9 mmol/L (3.3-5.1); Vitamin D,25 Hydroxy 57.4 ng/mL (30-100)
== END | disposition home or self-care (01) ==
LOC: BIMLAB 11:07
PROVIDERS: PCP Internal Medicine; Referring Provider Internal Medicine; Visit Provider Internal Medicine
DX: M81.0 Age-related osteoporosis without current pathological fracture (principal)
CPT/HCPCS: 36415; 80048; 82306; 83970

== ENCOUNTER → 2025-02-02 | Outpatient (CLI) | payer MEDICARE, SELFPAY ==
--- NOTE | 2025-02-02 08:45 | ECHOLC_ITS ---
Reason For Study Reason For Study: Cardiomyopathy Procedure This was a limited 2D transthoracic echocardiogram. The study was technically difficult. Contrast injection was performed. Exam performed in department. Left Ventricle Normal LV size. The left ventricular ejection fraction is 50 %. Left ventricular systolic function is lower limits of normal. No regional wall motion abnormalities noted. Right Ventricle Normal RV size. Normal systolic function. Atria Normal left atrium. Normal right atrium. Mitral Valve Normal mitral valve. Tricuspid Valve Normal tricuspid valve. Mild (1+) tricuspid valve insufficiency. Pulmonary artery systolic pressure is 28 mmHg. Aortic Valve Trisinus/trileaflet aortic valve. Mild (1+) aortic valve insufficiency. Pulmonic Valve Normal pulmonic valve. Great Vessels Normal aortic root. The pulmonary artery is normal size. Inferior vena cava collapse with respiration. Pericardium/Pleural No pericardial effusion. Medication 22 gauge I.V. with prn adaptor inserted into right arm. Diluted definity 1.5ml given slow IV push to enhance endocardial definition. MMode/2D Measurements & Calculations LVIDd: 4.2 cm IVSd: 0.92 cm LAV(MOD-sp4): 46.4 ml LVIDs: 3.0 cm LVPWd: 0.91 cm FS: 28.4 % LVAd ap4: 33.7 cm2 SV(MOD-sp4): 60.4 ml SV(sp4-el): 64.7 ml LVLd ap4: 7.6 cm SI(MOD-sp4): 32.9 ml/m2 EDV(MOD-sp4): 119.9 ml EDV(sp4-el): 127.3 ml LVAs ap4: 22.4 cm2 LVLs ap4: 6.8 cm ESV(MOD-sp4): 59.5 ml ESV(sp4-el): 62.5 ml EF(MOD-sp4): 50.4 % EF(sp4-el): 50.9 % LA A4 area: 17.5 cm2 RA A4 area: 12.5 cm2 Doppler Measurements & Calculations AI max evelyn: 350.7 cm/sec TR max evelyn: 243.9 cm/sec AI max P.2 mmHg TR max P.8 mmHg AI dec slope: 169.7 cm/sec2 AI P1/2t: 605.5 msec ECHO/Echo Limited w/Contrast Interpretation Summary Normal LV size. The left ventricular ejection fraction is 50 %. Mild (1+) aortic valve insufficiency. Contrast injection was performed. Ordering Physician: Katie Perla Referring Physician: Katie Perla Performed By: Rupesh Rubi RCS
== END | disposition home or self-care (01) ==
LOC: CVS 08:42
PROVIDERS: PCP Internal Medicine; Referring Provider Nurse Practitioner Gerontology; Visit Provider Nurse Practitioner Gerontology
DX: I51.9 Heart disease, unspecified (principal)
CPT/HCPCS: 93308; Q9957; A4216; C8924